=== PATIENT | male | born 1965 | race African-American/Black ===

== ENCOUNTER → 2017-07-15 | Outpatient (CLI) | payer BC, OTHER ==
[~2017-07-15] MED LIST: AMLO-307 PO; CYCL10TA9 PO; IBP800T PO; LISI10TA2 PO; MELO15TA14 PO; MINO100C2 PO; MTF500T PO; ONDA8TAB13 PO; PRD20T PO; TRAM-42 PO
--- NOTE | 2017-07-15 19:49 | Diagnostic Imaging Report ---
INDICATION: Lateral foot pain. FINDINGS: A multiseptated complex cystic lesion without vascularity measured 1.8 x 1.4 x 1.6 cm in the region of clinical complaint. No solid mass. IMPRESSION: Multiseptated complex fluid collection without internal or peripheral hypervascularity. No vascularized or solid mass. Dictated by: Dictated on workstation # [id number]
== END ==
LOC: RAD 16:55
PROVIDERS: ATTEND Nurse Practitioner Community Health
DX: M79.89 Other specified soft tissue disorders (principal)
CPT/HCPCS: 76881

== ENCOUNTER 2017-11-04 11:00 | Outpatient (CLI) | payer OTHER ==
[~2017-11-04] VITALS: Ht 175.3 cm; Wt 72.6 kg
[2017-11-04] MEDS ORDERED: METF500T4 PO (11:10)
[2017-11-04] MEDS ORDERED: AMLO10TA2 PO (11:10)
[2017-11-04] MEDS ORDERED: LISI40TA PO (11:10)
== END 2017-11-04 11:14 ==
LOC: PREOP 11:00
PROVIDERS: ATTEND Podiatrist Foot & Ankle Surgery
DX: Z01.818 Encounter for other preprocedural examination (principal); R22.42 Localized swelling, mass and lump, left lower limb

== ENCOUNTER 2018-01-27 10:30 | Outpatient (RCR) | payer OTHER ==
[~2018-01-27 10:30] MED LIST changes: +ACHD5005 PO; +AMLO10TA2 PO; +LISI40TA PO; +METF500T5 PO
== END 2018-02-02 13:23 | disposition home or self-care (01) ==
PROVIDERS: ATTEND Nurse Practitioner
DX: M16.11 Unilateral primary osteoarthritis, right hip (principal)

== ENCOUNTER → 2018-02-09 | Outpatient (CLI) | payer OTHER ==
--- NOTE | 2018-02-09 09:14 | Diagnostic Imaging Report ---
PROCEDURE: CT pelvis without contrast. TECHNIQUE: Multiple contiguous axial images were obtained through the pelvis without the use of intravenous contrast. Sagittal and coronal reformations were performed. INDICATION: Followup pelvic avulsion. COMPARISON: CT abdomen and pelvis from 07/14/2017. FINDINGS: Curvilinear mineralization within the origin of the right rectus femoris is compatible with old avulsion type injury. The configuration of the osseous fragments in this region has not significantly changed since prior CT. However, the fluid and gas within the proximal aspect of the rectus femoris muscle has resolved. On the contralateral, left side, there is minimal mineralization at the origin of the left rectus femoris muscle which is also unchanged. The bilateral distal iliopsoas tendons are intact. The proximal hamstring complexes are normal. The gluteus medius and minimus insertions show no full-thickness tear by CT. There is a large right hip effusion which is new since prior exam. Severe osteoarthritis of the right hip has progressed, now with near-complete joint space loss of the superior aspect of the hips. Marginal osteophytes are present. Ossific fragments adjacent to the right acetabulum may represent os acetabula which are congenital variant ossicles. No free pelvic fluid. No pelvic or inguinal lymphadenopathy. No fracture or stress fracture within the pelvis. 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 IMPRESSION: 1. 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 There has been resolution of the gas and fluid within the proximal right rectus femoris. 2. Development of large right hip effusion. This could be reactive in nature due to severe right hip osteoarthritis. Arthrocentesis could be performed for further characterization, if deemed clinically warranted. Dictated by: Dictated on workstation # [id number]
== END ==
LOC: RAD 08:08
PROVIDERS: ATTEND Orthopaedic Surgery
DX: S76.191A Other specified injury of right quadriceps muscle, fascia and tendon, initial encounter (principal); M16.11 Unilateral primary osteoarthritis, right hip
CPT/HCPCS: 72192

== ENCOUNTER 2018-06-01 15:17 | Outpatient (CLI) | payer OTHER ==
[~2018-06-01] VITALS: Ht 175.3 cm; Wt 72.6 kg
[~2018-06-01 15:17] MED LIST changes: -AMLO10TA2 PO; +AMLO10TA6 PO; +METF-397 PO; -METF500T5 PO
== END 2018-06-01 16:40 | disposition home or self-care (01) ==
LOC: PREOP 15:17
PROVIDERS: ATTEND Surgery
DX: Z01.818 Encounter for other preprocedural examination (principal)

== ENCOUNTER 2018-06-06 09:30 | Day surgery (SDC) | payer OTHER ==
[~2018-06-06] VITALS: Ht 175.3 cm; Wt 72.6 kg
[2018-06-06] MEDS ORDERED: NS IV 500 ML 500 ML ONE (09:32)
[2018-06-06 09:33] VITALS: BP 114/82
--- OUTSIDE RECORDS SUMMARY | 2018-06-06 09:34 | XMS REPORT ---
Author Author PAULINA MOE Organization [facility] Address [address] [place] [address] Care Team Providers Care Materials Mgmt Tech Name Role Phone PAULINA MOE Unavailable PROBLEMS Type Condition ICD9-CM Code RVN22-FF Code Onset Dates Condition Status SNOMED Code Problem Impotence N52.9 Active 589550230 Problem Sciatica, right side M54.31 Active 02773496 Problem Tobacco abuse counseling Z71.6 Active 101771203 Problem Prediabetes R73.09 Active 2650128 Problem Hyperlipidemia, unspecified E78.5 Active 47175222 Problem Primary osteoarthritis of right hip M16.11 Active 856459816 Problem Tobacco abuse Z72.0 Active 97264486 Problem Establishing care with new doctor, encounter for Z71.89 Active 154048480 Problem Other chronic pain G89.29 Active 22316061 Problem Hypertension I10 Active 52956823 ALLERGIES No Known Allergies ENCOUNTERS Encounter Location Date Diagnosis [place] [id number] [place] [address]- [address]159 May, [place] [address] [address] Apr, Positive colorectal cancer screening using Cologuard test R19.5 [place] [id number] [place] [address] 76028- 4286 Apr, [place] [address] [address]- [address] Feb, [place] [address] 86352- 7427 Feb, Hyperlipidemia, unspecified E78.5 [place] [address] 11743- 8644 Feb, Prediabetes R73.09 ; Hypertension I10 ; Colon cancer screening Z12.11 ; Hyperlipidemia, unspecified E78.5 ; Pain in right hip M25.551 and Viral warts, unspecified type B07.9 [place] [id number] [place] [address] 13582- 5502 Dec, Primary osteoarthritis of right hip M16.11 [place] [address] 13396- 1820 Nov, Primary osteoarthritis of right hip M16.11 [place] [address] 49057- 3384 Nov, Right leg pain M79.604 and Hypertension I10 [place] [address] 69[address]- 2380 Oct, [place] [address] 48024- 3097 Sep, Prediabetes R73.09 ; Pre-op exam Z01.818 and Hypertension I10 [place] [address] 90995- 4865 14 Jul, 2017 Other chronic pain G89.29 and Pain in right hip M25.551 [place] [id number] [place] [address] 45470- 1862 07 Jul, 2017 Elevated lipase R74.8 [place] [id number] [place] [address] 98161- 5937 Jul, [place] [address] 84681- 0483 Jun, RUQ abdominal pain R10.11 [place] [address] 76383- 3054 Jun, RUQ abdominal pain R10.11 and Hematuria, unspecified type R31.9 [place] [address] 83489- 4893 Jun, Right hip pain M25.551 [place] [id number] [place] [address] 97939- 3150 Jun, Prediabetes R73.03 ; Left foot pain M79.672 and Right hip pain M25.551 [facility] [id number] [place] [address] 19090 -9863 Nov, Acute non-recurrent maxillary sinusitis J01.00 [place] [id number] [place] [address] 90648- 2477 Nov, Hypertension I10 ; Prediabetes R73.09 and Dyslipidemia 272.4 [place] [address] 09880- 8474 Nov, Hypertension I10 ; Prediabetes R73.03 and Colon cancer screening Z12.11 [place] [address] 75291- 0001 Oct, Hypertension I10 [place] [id number] [place] [address] 89553- 9927 Oct, [place] [id number] [place] [address] 15581- 3633 May, Strain of triceps tendon, right, initial encounter S46.811A and Osteoarthritis of right knee, unspecified osteoarthritis type M17.9 [place] [id number] [place] [address] 04072- 3753 Apr, Elbow pain, right M25.521 and Acute pain of right knee M25.561 [place] [id number] [place] [address] 53484- 2578 Apr, [facility] [id number] [place] [address] 33954 -5298 Mar, Right elbow pain M25.521 [place] [id number] [place] [address] 26062- 2054 Mar, Hypertension I10 and Prediabetes R73.09 [place] [id number] [place] [address] 91360- 7419 Nov, [place] [id number] [place] [address] 45318- 3303 Oct, Sciatica, right side M54.31 ; Establishing care with new doctor, encounter for Z71.89 ; Tobacco abuse Z72.0 ; Tobacco abuse counseling Z71.6 and Essential hypertension I10 [facility] [id number] [place] [address] 21805 -9704 Oct, Lumbago M54.5 [place] [id number] [place] [address] 94960- 6962 Aug, Prediabetes R73.09 ; Hypertension I10 and Impotence N52.9 [place] [id number] [place] [address] 35370- 5765 May, Ingrowing nail, right great toe 703.0 [place] [id number] [place] [address] 89510- 7926 Mar, Dyslipidemia 272.4 [place] [id number] [place] [address] 86388- 4055 Mar, Prediabetes 790.29 [place] [id number] [place] [address] 33419- 9258 Feb, Prediabetes 790.29 and Impotence of organic origin 607.84 [place] [address] [place] [address] 40388- 0510 Feb, [place] [address] 20863- 1386 Feb, [place] [id number] [place] [address] 90730- 9034 Dec, Hypertension 401.9 ; Impotence due to erectile dysfunction 607.84 and Hyperglycemia 790.29 [place] [address] [id number] [place] [address]- 0206 28 Dec, 2014 [facility] [place] [facility] [address] [id number] [place] [address]- 2535 14 Dec, 2014 [facility] [place] [facility] [address] [id number] [place] [address]- 4465 Dec, [facility] [place] [facility] [address] [id number] [place] [address]- 8956 Nov, [facility] [place] [facility] [address] [id number] [place] [address]- 7010 Nov, [facility] [place] [facility] [address] [id number] [place] [address]- 6338 Oct, [facility] [place] [facility] [address] [facility] [id number] [place] [address]- 7886 Oct, [facility] [place] [facility] [address] [id number] [place] [address]- 8338 Oct, [facility] [place] [facility] [address] [id number] [place] [address]- 6567 Oct, [facility] [place] [facility] [address] [facility] [id number] [place] [address]- 9541 Sep, [facility] [place] [facility] [address] [facility] [id number] [place] [address]- 5967 Sep, [facility] [place] [facility] [address] [id number] [address]- 7105 Sep, [facility] [place] [facility] [address] [id number] [place] [address]- 0539 Sep, [facility] [place] [facility] [address] [id number] [place] [address]- 5752 Sep, [facility] [place] [facility] [address] [facility] [id number] [place] [address]- 2225 Sep, [facility] [place] [facility] [address] [id number] [place] [address]- 3851 Jul, [facility] [place] [facility] [address] [id number] [place] [address]- 7363 Jul, [facility] [place] [facility] [address] [id number] [place] [address]- 6756 Jul, [facility] [place] [facility] [address] [id number] [place] [address]- 1698 Jul, [facility] [place] [facility] [address] [id number] [place] [address]209 Jul, [facility] [place] [facility] [address] [id number] [place] [address]- 5773 Jul, [facility] [place] [facility] [address] [id number] [place] [address]379 Jun, [facility] [place] [facility] [address] [id number] [place] [address]- 3285 Mar, [facility] [place] [facility] [address] [id number] [place] [address]- 5897 Mar, [facility] [place] [facility] [address] [id number] [place] [address]- 2449 Mar, [facility] [place] [facility] [address] [id number] [place] [address]- 9507 Mar, [facility] [place] [facility] [address] [id number] [place] [address]- 4271 Feb, [facility] [place] [facility] [address] [id number] [place] [address]- 4390 Feb, [facility] [place] [facility] [address] [id number] [place] [address]- 5300 Nov, [facility] [place] [facility] [address] [id number] [place] [address]- 0455 Nov, [facility] [place] [facility] [address] [id number] [place] [address]- 0336 May, [facility] [place] [facility] [address] [id number] [place] [address]- 2546 Apr, [facility] [address] [id number] [place] [address]- 0566 January, [facility] [place] [facility] [address] [id number] [place] [address]- 2546 Oct, [facility] [address] [id number] [place] [address]- 2546 Sep, [facility] [address] [id number] [place] [address]- 2546 Sep, [facility] [address] [id number] [place] [address]- 7886 Sep, [facility] [address] [id number] [place] [address]- 7996 Jul, [facility] [address] [id number] [place] [address]- 7406 Jul, [facility] [address] [id number] [place] [address]- 2599 Mar, [facility] [address] [id number] [place] [address]- 6286 Sep, [facility] [address] [id number] [place] [address]- 4218 Sep, [facility] [address] [id number] [place] [address]- 9906 Sep, [facility] [address] [id number] [place] [address]- 2546 Sep, [facility] [address] [id number] [place] [address]- 2546 Aug, [facility] [place] [facility] [address] [id number] [place] [address]- 2546 Aug, [facility] [address] [id number] [place] [address]- 7958 16 Aug, 2010 [facility] [address] [id number] [address]- 7419 15 Aug, 2010 [facility] [address] [place] [address]- 9637 Aug, [facility] [address] 9616 Aug, [facility] [address] [address]- 4202 Sep, [facility] [address] [address]- 8315 Aug, [facility] [id number] [place] [address] 192121- 3111 Jul, [facility] [address] [address]- 0889 Jun, [facility] [address] [place] [address]- 1891 Jun, [facility] [address] [id number] [address]- 3734 May, IMMUNIZATIONS No Known Immunizations SOCIAL HISTORY Never Assessed REASON FOR VISIT Blood Pressure-Gaye NASH PLAN OF CARE Activity Details Follow Up 6 Months Reason:BP Future/Pending Procedure SHAVE SKIN LESION 0.6-1 cm VITAL SIGNS Height 70 in 2018-03-02 Weight 158.0 lbs 2018-03-02 Temperature 98.4 degrees Fahrenheit 2018-03-02 Heart Rate 64 bpm 2018-03-02 Respiratory Rate 18 2018-03-02 BMI 22.67 kg/m2 2018-03-02 Blood pressure systolic 122 mmHg 2018-03-02 Blood pressure diastolic 80 mmHg 2018-03-02 MEDICATIONS Medication Instructions Dosage Frequency Start Date End Date Duration Status Amlodipine Besylate 10 mg Orally Once a day 1 tablet 24h Active Lisinopril 40 mg Orally 1 TAB orally once a day 1 tablet by Oral route 1 time per day Sep, 90 days Active Metformin HCl 500 mg TAKE ONE TABLET BY MOUTH TWICE DAILY 12h 90 days Active RESULTS Name Result Date Reference Range A1C (IN HOUSE) 2018-03-02 A1C IN HOUSE 6.3 4.3 - 5.6 % Previous A1c 6.5 Lot [id number] Exp date 11/2019 WALTER (OUTSIDE ORDER) 2018-03-24 Date Performed Results PROCEDURES Procedure Date Ordered Result Body Site GLYCATED HEMOGLOBIN TEST March 02, 2018 KENDRA Dee,E,E,N,L,M 0.6-1 CM March 02, 2018 INSTRUCTIONS MEDICATIONS ADMINISTERED No Known Medications MEDICAL (GENERAL) HISTORY Type Description Date Medical History hypertension dx: 2009 Medical History hyperlipidemia Medical History prediabetes
--- OUTSIDE RECORDS SUMMARY | 2018-06-06 09:34 | XMS REPORT ---
Author Author PAULINA MOE Organization [facility] Address [address] [place] [address] Care Team Providers Care Automobile Tester Name Role Phone PAULINA MOE Unavailable PROBLEMS Type Condition ICD9-CM Code UMJ49-NN Code Onset Dates Condition Status SNOMED Code Problem Impotence N52.9 Active 330219189 Problem Sciatica, right side M54.31 Active 02118206 Problem Tobacco abuse counseling Z71.6 Active 931552909 Problem Prediabetes R73.09 Active 7120331 Problem Hyperlipidemia, unspecified E78.5 Active 12024543 Problem Primary osteoarthritis of right hip M16.11 Active 498124200 Problem Tobacco abuse Z72.0 Active 80726708 Problem Establishing care with new doctor, encounter for Z71.89 Active 377483395 Problem Other chronic pain G89.29 Active 65643111 Problem Hypertension I10 Active 27071795 ALLERGIES No Information ENCOUNTERS Encounter Location Date Diagnosis [place] [id number] [place] [address] 26352- 0543 May, [place] [id number] [place] [address] 78237- 8299 Apr, Positive colorectal cancer screening using Cologuard test R19.5 [place] [id number] [place] [address] 72104- 1396 Apr, [place] [id number] [place] [address] 47864- 2955 Feb, [place] [address] 90419- 8614 Feb, Hyperlipidemia, unspecified E78.5 [place] [id number] [place] [address] 53570- 6396 Feb, Prediabetes R73.09 ; Hypertension I10 ; Colon cancer screening Z12.11 ; Hyperlipidemia, unspecified E78.5 ; Pain in right hip M25.551 and Viral warts, unspecified type B07.9 [place] [id number] [place] [address] 14223- 9269 Dec, Primary osteoarthritis of right hip M16.11 [place] [address] 93816- 2029 Nov, Primary osteoarthritis of right hip M16.11 [place] [address] 67835- 4267 Nov, Right leg pain M79.604 and Hypertension I10 [place] [address] 47039- 9548 Oct, [place] [address] 09338- 8750 Sep, Prediabetes R73.09 ; Pre-op exam Z01.818 and Hypertension I10 [place] [address] 06650- 4217 14 Jul, 2017 Other chronic pain G89.29 and Pain in right hip M25.551 [place] [address] 87141- 5653 07 Jul, 2017 Elevated lipase R74.8 [place] [address] 48193- 2036 Jul, [place] [address] 21295- 9446 Jun, RUQ abdominal pain R10.11 [place] [address] 68119- 7031 Jun, RUQ abdominal pain R10.11 and Hematuria, unspecified type R31.9 [place] [address] 61943- 0363 Jun, Right hip pain M25.551 [place] [id number] [place] [address] 77599- 3238 Jun, Prediabetes R73.03 ; Left foot pain M79.672 and Right hip pain M25.551 [facility] [address] [id number] [place] [address] 91374 -0569 Nov, Acute non-recurrent maxillary sinusitis J01.00 [place] [address] 74406- 8745 Nov, Hypertension I10 ; Prediabetes R73.09 and Dyslipidemia 272.4 [place] [address] 51065- 8173 Nov, Hypertension I10 ; Prediabetes R73.03 and Colon cancer screening Z12.11 [place] [address] 67932- 7240 Oct, Hypertension I10 [place] [address] 98289- 5980 Oct, [place] [address] 64430- 4425 May, Strain of triceps tendon, right, initial encounter S46.811A and Osteoarthritis of right knee, unspecified osteoarthritis type M17.9 [place] [id number] [place] [address] 87688- 0321 Apr, Elbow pain, right M25.521 and Acute pain of right knee M25.561 [place] [id number] [place] [address] 60981- 7866 Apr, [facility] [id number] [place] [address] 67958 -2425 Mar, Right elbow pain M25.521 [place] [id number] [place] [address] 67112- 4993 Mar, Hypertension I10 and Prediabetes R73.09 [facility] [id number] [place] [address] 03060- 4823 Nov, [facility] [id number] [place] [address] 54821- 7829 Oct, Sciatica, right side M54.31 ; Establishing care with new doctor, encounter for Z71.89 ; Tobacco abuse Z72.0 ; Tobacco abuse counseling Z71.6 and Essential hypertension I10 [facility] [id number] [place] [address] 80205 -2916 Oct, Lumbago M54.5 [place] [id number] [place] [address] 64136- 9813 Aug, Prediabetes R73.09 ; Hypertension I10 and Impotence N52.9 [place] [id number] [place] [address] 73228- 3379 May, Ingrowing nail, right great toe 703.0 [place] [id number] [place] [address] 17764- 6945 Mar, Dyslipidemia 272.4 [place] [id number] [place] [address] 20398- 5464 14 Mar, 2015 Prediabetes 790.29 [place] [id number] [place] [address] 40859- 6357 Feb, Prediabetes 790.29 and Impotence of organic origin 607.84 [place] [id number] [place] [address] 32023- 9284 Feb, [place] [address] 53982- 5522 Feb, [place] [id number] [place] [address] 51538- 5968 Dec, Hypertension 401.9 ; Impotence due to erectile dysfunction 607.84 and Hyperglycemia 790.29 [place] [address] [id number] [place] [address]- 0383 Dec, [facility] [place] [facility] [address] [id number] [place] [address]- 1495 14 Dec, 2014 [facility] [place] [facility] [address] [id number] [place] [address]- 3181 Dec, [facility] [place] [facility] [address] [id number] [place] [address]- 8480 Nov, [facility] [place] [facility] [address] [id number] [place] [address]- 5478 Nov, [facility] [place] [facility] [address] [id number] [place] [address]- 0175 Oct, [facility] [place] [facility] [address] [id number] [place] [address]- 1358 Oct, [facility] [place] [facility] [address] [id number] [place] [address]- 6700 Oct, [facility] [place] [facility] [address] [id number] [place] [address]- 6988 Oct, [facility] [place] [facility] [address] [id number] [place] [address]- 8306 Sep, [facility] [place] [facility] [address] [id number] [place] [address]- 0102 Sep, [facility] [place] [facility] [address] [id number] [place] [address]- 3408 Sep, [facility] [place] [facility] [address] [id number] [place] [address]- 2240 Sep, [facility] [place] [facility] [address] [id number] [place] [address]- 7971 Sep, [facility] [place] [facility] [address] [id number] [place] [address]- 4554 Sep, [facility] [place] [facility] [address] [id number] [place] [address]- 1045 Jul, [facility] [place] [facility] [address] [id number] [place] [address]- 3947 Jul, [facility] [place] [facility] [address] [id number] [place] [address]- 3689 Jul, [facility] [place] [facility] [address] [id number] [place] [address]- 5331 Jul, [facility] [place] [facility] [address] [id number] [place] [address]- 7188 Jul, [facility] [place] [facility] [address] [id number] [place] [address]- 3015 Jul, [facility] [place] [facility] [address] [id number] [place] 9337 Jun, [facility] [place] [facility] [address] [id number] [place] [address]- 6611 Mar, [facility] [place] [facility] [address] [id number] [place] [address]- 2136 Mar, [facility] [place] [facility] [address] [id number] [place] [address]- 0649 Mar, [facility] [place] [facility] [address] [id number] [place] [address]- 2890 Mar, [facility] [place] [facility] [address] [id number] [place] [address]- 9269 Feb, [facility] [place] [facility] [address] [id number] [place] [address]- 5705 Feb, [facility] [place] [facility] [address] [id number] [place] 3164 Nov, [facility] [place] [facility] [address] [id number] [place] [address]- 5326 Nov, [facility] [place] [facility] [address] [id number] [place] 8967 May, [facility] [place] [facility] [address] [id number] [place] [address]- 2546 Apr, [facility] [address] [id number] [place] [address]- 3146 January, [facility] [address] [id number] [place] [address]- 2546 Oct, [facility] [address] [id number] [place] [address]- 2546 Sep, [facility] [address] [id number] [place] [address]- 2546 Sep, [facility] [address] [id number] [place] [address]- 7126 Sep, [facility] [address] [id number] [place] [address]- 5606 Jul, [facility] [address] [id number] [place] [address]- 4986 Jul, [facility] [address] [id number] [place] [address]- 8310 Mar, [facility] [address] [id number] [place] [address]- 4806 Sep, [facility] [address] [id number] [place] [address]- 5136 Sep, [facility] [address] [id number] [place] [address]- 0056 Sep, [facility] [address] [id number] [place] [address]- 2546 Sep, [facility] [address] [id number] [place] [address]- 2546 Aug, [facility] [address] [id number] [place] [address]- 2546 Aug, [facility] [address] [id number] [place] [address]- 0565 Aug, [facility] [address] [place] [address]- 5106 Aug, [facility] [address]- 0253 Aug, [facility] [address] [place] [address]- 4224 Aug, [facility] [address] [place] [address]- 8794 Sep, [facility] [address] 5054 Aug, [facility] [address] 5882 Jul, [facility] [address] 6659 Jun, [facility] [address] [place] [address]- 3185 Jun, [facility] [id number] [address]- 1610 May, IMMUNIZATIONS No Known Immunizations SOCIAL HISTORY Never Assessed REASON FOR VISIT Lab results PLAN OF CARE VITAL SIGNS MEDICATIONS Unknown Medications RESULTS No Results PROCEDURES No Known procedures INSTRUCTIONS MEDICATIONS ADMINISTERED No Known Medications MEDICAL (GENERAL) HISTORY Type Description Date Medical History hypertension dx: 2008 Medical History hyperlipidemia Medical History prediabetes
--- OUTSIDE RECORDS SUMMARY | 2018-06-06 09:35 | XMS REPORT ---
Author Author MARCIE HARDEN [facility] Address [address] [place] [address] Care Team Providers Care Brown Sourer Name Role Phone MARCIE HARDEN Unavailable PROBLEMS Type Condition ICD9-CM Code FLG55-IO Code Onset Dates Condition Status SNOMED Code Problem Impotence N52.9 Active 108163305 Problem Sciatica, right side M54.31 Active 20810782 Problem Tobacco abuse counseling Z71.6 Active 568272572 Problem Prediabetes R73.09 Active 9615710 Problem Hyperlipidemia, unspecified E78.5 Active 60918948 Problem Primary osteoarthritis of right hip M16.11 Active 206105133 Problem Tobacco abuse Z72.0 Active 81156374 Problem Establishing care with new doctor, encounter for Z71.89 Active 646393734 Problem Other chronic pain G89.29 Active 97653813 Problem Hypertension I10 Active 32456840 ALLERGIES No Information ENCOUNTERS Encounter Location Date Diagnosis [place] [address] 06710- 1348 Feb, [place] [address] 67063- 7108 Feb, Hyperlipidemia, unspecified E78.5 [place] [address] 39923- 1696 Feb, Prediabetes R73.09 ; Hypertension I10 ; Colon cancer screening Z12.11 ; Hyperlipidemia, unspecified E78.5 ; Pain in right hip M25.551 and Viral warts, unspecified type B07.9 [place] [address] [place] [id number] [place] [address] 38261- 5834 Dec, Primary osteoarthritis of right hip M16.11 [place] [address] 60031- 6666 Nov, Primary osteoarthritis of right hip M16.11 [place] [address] 92647- 2648 Nov, Right leg pain M79.604 and Hypertension I10 [place] [address] 77254- 9833 Oct, [place] [address] 26644- 9821 Sep, Prediabetes R73.09 ; Pre-op exam Z01.818 and Hypertension I10 [place] [address] 43316- 0431 Jul, Other chronic pain G89.29 and Pain in right hip M25.551 [place] [address] 75313- 0360 Jul, Elevated lipase R74.8 [place] [address] 93550- 0482 Jul, [place] [address] 51243- 4336 Jun, RUQ abdominal pain R10.11 [place] [address] 23353- 2626 Jun, RUQ abdominal pain R10.11 and Hematuria, unspecified type R31.9 [place] [address] 97275- 9604 Jun, Right hip pain M25.551 [place] [address] 58772- 0309 Jun, Prediabetes R73.03 ; Left foot pain M79.672 and Right hip pain M25.551 [facility] [address] [id number] [place] [address] 56525 -6387 Nov, Acute non-recurrent maxillary sinusitis J01.00 [place] [address] [address] [id number] [place] [address] 41915- 6360 Nov, Hypertension I10 ; Prediabetes R73.09 and Dyslipidemia 272.4 [place] [address] [address] [id number] [place] [address] 51043- 8561 Nov, Hypertension I10 ; Prediabetes R73.03 and Colon cancer screening Z12.11 [place] [address] 52317- 9509 Oct, Hypertension I10 [place] [address] [address] [id number] [place] [address] 68062- 1038 Oct, [address] 81541- 3371 May, Strain of triceps tendon, right, initial encounter S46.811A and Osteoarthritis of right knee, unspecified osteoarthritis type M17.[address] 02993- 6049 Apr, Elbow pain, right M25.521 and Acute pain of right knee M25.561 [place] [address] 52334- 4968 Apr, [facility] [address] [place] [id number] [place] [address] 65353 -6795 Mar, Right elbow pain M25.521 [place] [address] [address] [id number] [place] [address] 51506- 4758 Mar, Hypertension I10 and Prediabetes R73.09 [place] [address] [address] [id number] [place] [address] 21065- 0355 Nov, [address] 64883- 1083 Oct, Sciatica, right side M54.31 ; Establishing care with new doctor, encounter for Z71.89 ; Tobacco abuse Z72.0 ; Tobacco abuse counseling Z71.6 and Essential hypertension I10 [facility] [address] [place] [id number] [place] [address] 30283 -9781 Oct, Lumbago M54.5 [facility] [address] [id number] [place] [address] 30551- 4637 Aug, Prediabetes R73.09 ; Hypertension I10 and Impotence N52.9 [facility] [address] 98060- 7962 May, Ingrowing nail, right great toe 703.0 [place] [address] 72325- 5053 Mar, Dyslipidemia 272.4 [place] [address] 24327- 0288 Mar, Prediabetes 790.29 [facility] [address] 27814- 0716 Feb, Prediabetes 790.29 and Impotence of organic origin 607.84 [facility] [address] 26442- 5889 Feb, [facility] [address] 52481- 6154 Feb, [facility] [address] [place] [address] [id number] [place] [address] 51446- 6844 Dec, Hypertension 401.9 ; Impotence due to erectile dysfunction 607.84 and Hyperglycemia 790.29 [facility] [address] [place] [id number] [place] [address] 30585- 0250 Dec, [facility] [address] 15100- 3145 Dec, [facility] [address] 92251- 2302 Dec, [facility] [address] 46177- 5380 Nov, [facility] [place] [facility] [address] [id number] [place] [address]- 4554 Nov, [facility] [place] [facility] [address] [id number] [place] [address]- 5400 Oct, [facility] [place] [facility] [address] [id number] [place] [address]- 7488 Oct, [facility] [place] [facility] [address] [id number] [place] [address]- 0465 Oct, [facility] [place] [facility] [address] [id number] [place] [address]- 3211 Oct, [facility] [place] [facility] [address] [id number] [place] [address]- 9693 Sep, [facility] [place] [facility] [address] [facility] [id number] [place] [address]- 8471 Sep, [facility] [place] [facility] [address] [id number] [place] [address]- 0125 Sep, [facility] [place] [facility] [address] [facility] [id number] [place] [address]- 8643 Sep, [facility] [place] [facility] [address] [facility] [id number] [place] [address]- 7297 Sep, [facility] [place] [facility] [address] [id number], [place] [address]- 9141 Sep, [facility] [place] [facility] [address] [id number], [place] [address]- 6113 Jul, [facility] [place] [facility] [address] [id number] [place] [address]- 0777 Jul, [facility] [place] [facility] [address] [facility] [id number] [place] [address]- 4472 Jul, [facility] [place] [facility] [address] [facility] [id number] [place] [address]- 5070 Jul, [facility] [place] [facility] [address] [id number] [place] [address]- 2546 Jul, [facility] [place] [facility] [address] [id number] [place] [address]- 2546 Jul, [facility] [place] [facility] [address] [id number] [place] [address]- 2546 Jun, [facility] [place] [facility] [address] [id number] [place] [address]- 2546 Mar, [facility] [place] [facility] [address] [id number] [place] [address]- 2546 Mar, [facility] [place] [facility] [address] [id number] [place] [address]- 2546 Mar, [facility] [place] [facility] [address] [id number] [place] [address]- 2546 Mar, [facility] [place] [facility] [address] [id number] [place] [address]- 9376 Feb, [facility] [place] [facility] [address] [id number] [place] [address]- 0677 Feb, [facility] [place] [facility] [address] [id number] [place] [address]- 7566 Nov, [facility] [place] [facility] [address] [id number] [place] [address]- 2546 Nov, [facility] [place] [facility] [address] [id number] [place] [address]- 2546 May, [facility] [place] [facility] [address] [id number] [place] [address]- 2546 Apr, [facility] [place] [facility] [address] [id number] [place] [address]- 2546 January, [facility] [place] [facility] [address] [id number] [place] [address]- 2546 Oct, [facility] [place] [facility] [address] [id number] [place] [address]- 1977 Sep, [facility] [address] [id number] [place] [address]- 2295 Sep, [facility] [place] [facility] [address] [id number] [place] [address]- 7983 Sep, [facility] [address] [id number] [place] [address]- 3346 Jul, [facility] [place] [facility] [address] [id number] [place] [address]- 7600 Jul, [facility] [address] [id number] [place] [address]- 8072 Mar, [facility] [address] [id number] [place] [address]- 5484 Sep, [facility] [address] [id number] [place] [address]- 5897 Sep, [facility] [address] [id number] [place] [address]- 3730 Sep, [facility] [address] [id number] [place] [address]- 2134 Sep, [facility] [address] [id number] [place] [address] 29 Aug, 2010 [facility] [place] [facility] [address] [id number], [place] [address] 20 Aug, 2010 [facility] [place] [facility] [address] [id number], [place] [address] 16 Aug, 2010 [facility] [place] [facility] [address] [id number] [place] [address] 15 Aug, 2010 [facility] [place] [facility] [address] [id number] [place] [address] 15 Aug, 2010 [facility] [place] [facility] [address] [id number] [place] [address] 02 Aug, 2010 [facility] [place] [facility] [address] [facility] [id number], [place] [address] Sep, [facility] [id number], [place] [address] Aug, [facility] [address] [id number], [place] [address] Jul, [facility] [address] [id number], [place] [address] Jun, [facility] [address] [id number] [address] Jun, [facility] [address] [id number] [address] May, IMMUNIZATIONS No Known Immunizations SOCIAL HISTORY Never Assessed REASON FOR VISIT right hip pain- CT and X-ray done 06/2017 PLAN OF CARE Activity Details Follow Up prn Reason: VITAL SIGNS MEDICATIONS Unknown Medications RESULTS No Results PROCEDURES No Known procedures INSTRUCTIONS MEDICATIONS ADMINISTERED No Known Medications MEDICAL (GENERAL) HISTORY Type Description Date Medical History hypertension dx: 2008 Medical History hyperlipidemia Medical History prediabetes
--- OUTSIDE RECORDS SUMMARY | 2018-06-06 09:35 | XMS REPORT ---
Author Author MARCIE HARDEN [facility] Address [address] [place] [address] Care Team Providers Care Research Quality Assurance Analyst Name Role Phone MARCIE HARDEN Unavailable PROBLEMS Type Condition ICD9-CM Code LRH26-BZ Code Onset Dates Condition Status SNOMED Code Problem Impotence N52.9 Active 583954747 Problem Sciatica, right side M54.31 Active 40097921 Problem Tobacco abuse counseling Z71.6 Active 249584365 Problem Prediabetes R73.09 Active 4356321 Problem Hyperlipidemia, unspecified E78.5 Active 34695033 Problem Primary osteoarthritis of right hip M16.11 Active 152178646 Problem Tobacco abuse Z72.0 Active 39311263 Problem Establishing care with new doctor, encounter for Z71.89 Active 648652660 Problem Other chronic pain G89.29 Active 43431619 Problem Hypertension I10 Active 14241858 ALLERGIES No Information ENCOUNTERS Encounter Location Date Diagnosis [place] [address] [address] 8985 Feb, [place] [address] 62598- 4039 Feb, Hyperlipidemia, unspecified E78.5 [place] [address] 87485- 9880 Feb, Prediabetes R73.09 ; Hypertension I10 ; Colon cancer screening Z12.11 ; Hyperlipidemia, unspecified E78.5 ; Pain in right hip M25.551 and Viral warts, unspecified type B07.9 [place] [address] [place] [id number] [place] [address] 49561- 6238 Dec, Primary osteoarthritis of right hip M16.11 [place] [address] 55319- 6958 Nov, Primary osteoarthritis of right hip M16.11 [place] [address] 92990- 4677 Nov, Right leg pain M79.604 and Hypertension I10 [place] [address] 76280- 9964 Oct, [place] [address] 64420- 0321 Sep, Prediabetes R73.09 ; Pre-op exam Z01.818 and Hypertension I10 [place] [address] 22718- 4231 Jul, Other chronic pain G89.29 and Pain in right hip M25.551 [place] [address] 07905- 6133 Jul, Elevated lipase R74.8 [place] [address] 30747- 9741 Jul, [place] [address] 49851- 5512 Jun, RUQ abdominal pain R10.11 [place] [address] 62976- 0961 Jun, RUQ abdominal pain R10.11 and Hematuria, unspecified type R31.9 [place] [address] 67059- 5455 Jun, Right hip pain M25.551 [place] [address] 85557- 4027 Jun, Prediabetes R73.03 ; Left foot pain M79.672 and Right hip pain M25.551 [facility] [address] [place] [id number] [place] [address] 31234 -7623 Nov, Acute non-recurrent maxillary sinusitis J01.00 [place] [address] [place] [id number] [place] [address] 55243- 5809 Nov, Hypertension I10 ; Prediabetes R73.09 and Dyslipidemia 272.4 [place] [address] [place] [id number] [place] [address] 90357- 1222 Nov, Hypertension I10 ; Prediabetes R73.03 and Colon cancer screening Z12.11 [place] [address] 87357- 0878 Oct, Hypertension I10 [place] [address] [place] [id number] [place] [address] 66643- 9540 Oct, [address] 82410- 0180 May, Strain of triceps tendon, right, initial encounter S46.811A and Osteoarthritis of right knee, unspecified osteoarthritis type M17.[address] 55258- 6428 Apr, Elbow pain, right M25.521 and Acute pain of right knee M25.561 [place] [address] 34796- 1866 Apr, [facility] [address] [place] [id number] [place] [address] 56469 -4480 Mar, Right elbow pain M25.521 [place] [address] [place] [id number] [place] [address] 88318- 3444 Mar, Hypertension I10 and Prediabetes R73.09 [place] [address] [place] [id number] [place] [address] 23788- 6357 Nov, [address] 24302- 2282 Oct, Sciatica, right side M54.31 ; Establishing care with new doctor, encounter for Z71.89 ; Tobacco abuse Z72.0 ; Tobacco abuse counseling Z71.6 and Essential hypertension I10 [facility] [address] [place] [id number] [place] [address] 46299 -3577 Oct, Lumbago M54.5 [facility] [address] [place] [id number] [place] [address] 60742- 1514 Aug, Prediabetes R73.09 ; Hypertension I10 and Impotence N52.9 [facility] [address] 52490- 6284 May, Ingrowing nail, right great toe 703.0 [place] [address] 79611- 7709 Mar, Dyslipidemia 272.4 [place] [address] 78898- 6953 Mar, Prediabetes 790.29 [facility] [address] 53679- 0288 Feb, Prediabetes 790.29 and Impotence of organic origin 607.84 [facility] [address] 35652- 4284 Feb, [facility] [address] 75856- 0265 Feb, [facility] [address] [place] [id number] [place] [address] 89742- 8644 Dec, Hypertension 401.9 ; Impotence due to erectile dysfunction 607.84 and Hyperglycemia 790.29 [facility] [address] [place] [id number] [place] [address] 86189- 2203 Dec, [facility] [address] 17033- 8062 Dec, [facility] [address] 22271- 5631 Dec, [facility] [address] 40111- 2317 Nov, [facility] [place] [facility] [address] [id number] [place] [address]- 9967 Nov, [facility] [place] [facility] [address] [id number] [place] [address]- 4864 Oct, [facility] [place] [facility] [address] [id number] [place] [address]- 0831 Oct, [facility] [place] [facility] [address] [id number] [place] [address]- 4281 Oct, [facility] [place] [facility] [address] [id number] [place] [address]- 9074 Oct, [facility] [place] [facility] [address] [id number] [place] [address]- 8066 Sep, [facility] [place] [facility] [address] [facility] [id number] [place] [address]- 2510 Sep, [facility] [place] [facility] [address] [id number] [place] [address]- 8818 Sep, [facility] [place] [facility] [address] [facility] [id number] [place] [address]- 0504 Sep, [facility] [place] [facility] [address] [facility] [id number] [place] [address]- 6139 Sep, [facility] [place] [facility] [address] [id number], [place] [address]- 9020 Sep, [facility] [place] [facility] [address] [id number], [place] [address]- 4270 Jul, [facility] [place] [facility] [address] [id number] [place] [address]- 5516 Jul, [facility] [place] [facility] [address] [facility] [id number] [place] [address]- 1648 Jul, [facility] [place] [facility] [address] [facility] [id number] [place] [address]- 3501 Jul, [facility] [place] [facility] [address] [id number] [place] [address]- 2546 Jul, [facility] [place] [facility] [address] [id number] [place] [address]- 2546 Jul, [facility] [place] [facility] [address] [id number] [place] [address]- 2546 Jun, [facility] [place] [facility] [address] [id number] [place] [address]- 2546 Mar, [facility] [place] [facility] [address] [id number] [place] [address]- 2546 Mar, [facility] [place] [facility] [address] [id number] [place] [address]- 2546 Mar, [facility] [place] [facility] [address] [id number] [place] [address]- 2546 Mar, [facility] [place] [facility] [address] [id number] [place] [address]- 5286 Feb, [facility] [place] [facility] [address] [id number] [place] [address]- 5242 Feb, [facility] [place] [facility] [address] [id number] [place] [address]- 8616 Nov, [facility] [place] [facility] [address] [id number] [place] [address]- 2546 Nov, [facility] [place] [facility] [address] [id number] [place] [address]- 2546 May, [facility] [place] [facility] [address] [id number] [place] [address]- 2546 Apr, [facility] [place] [facility] [address] [id number] [place] [address]- 2546 January, [facility] [place] [facility] [address] [id number] [place] [address]- 2546 Oct, [facility] [place] [facility] [address] [id number] [place] [address]- 9288 Sep, [facility] [address] [id number] [place] [address]- 3248 Sep, [facility] [place] [facility] [address] [id number] [place] [address]- 2418 Sep, [facility] [address] [id number] [place] [address]- 2056 Jul, [facility] [place] [facility] [address] [id number] [place] [address]- 2165 Jul, [facility] [address] [id number] [place] [address]- 4454 Mar, [facility] [address] [id number] [place] [address]- 4438 Sep, [facility] [address] [id number] [place] [address]- 1271 Sep, [facility] [address] [id number] [place] [address]- 2366 Sep, [facility] [address] [id number] [place] [address]- 2057 Sep, [facility] [address] [id number] [place] [address]- 9055 29 Aug, 2010 [facility] [place] [facility] [address] [id number], [place] [address]- 9804 20 Aug, 2010 [facility] [place] [facility] [address] [id number], [place] [address]- 4068 16 Aug, 2010 [facility] [place] [facility] [address] [id number] [place] [address]- 5749 15 Aug, 2010 [facility] [place] [facility] [address] [id number] [place] [address]- 9908 15 Aug, 2010 [facility] [place] [facility] [address] [id number] [place] [address]- 5786 02 Aug, 2010 [facility] [place] [facility] [address] [facility] [id number], [place] [address]- 4016 Sep, [facility] [address] [id number] [address]- 3653 Aug, [facility] [address] [id number] [address]- 2496 Jul, [facility] [address] [id number], [place] [address]- 0586 Jun, [facility] [address] [id number] [address]- 5693 Jun, [facility] [address] [id number] [address]- 3659 May, IMMUNIZATIONS No Known Immunizations SOCIAL HISTORY Never Assessed REASON FOR VISIT possible hip injection, Consult with Marcie Servin MA PLAN OF CARE Activity Details Follow Up prn Reason: VITAL SIGNS Height 70 in 2018-01-20 Blood pressure systolic 120 mmHg 2018-01-20 Blood pressure diastolic 80 mmHg 2018-01-20 MEDICATIONS Unknown Medications RESULTS No Results PROCEDURES No Known procedures INSTRUCTIONS MEDICATIONS ADMINISTERED No Known Medications MEDICAL (GENERAL) HISTORY Type Description Date Medical History hypertension dx: 2008 Medical History hyperlipidemia Medical History prediabetes
--- OUTSIDE RECORDS SUMMARY | 2018-06-06 09:35 | XMS REPORT ---
Author Author PAULINA MOE Organization [facility] Address [address] [place] [address] Care Team Providers Care Ceramic Maker Demonstrator Name Role Phone PAULINA MOE Unavailable PROBLEMS Type Condition ICD9-CM Code ZBE58-CZ Code Onset Dates Condition Status SNOMED Code Problem Impotence N52.9 Active 072089336 Problem Sciatica, right side M54.31 Active 36748800 Problem Tobacco abuse counseling Z71.6 Active 900660861 Problem Prediabetes R73.09 Active 0739405 Problem Hyperlipidemia, unspecified E78.5 Active 77803021 Problem Primary osteoarthritis of right hip M16.11 Active 675050058 Problem Tobacco abuse Z72.0 Active 77984894 Problem Establishing care with new doctor, encounter for Z71.89 Active 587110627 Problem Other chronic pain G89.29 Active 72747497 Problem Hypertension I10 Active 61822940 ALLERGIES No Known Allergies ENCOUNTERS Encounter Location Date Diagnosis [place] [address] 8[address]- 5178 18 Feb, 2018 [place] [address] 63129- 6563 Feb, Hyperlipidemia, unspecified E78.5 [place] [address] 26318- 9582 Feb, Prediabetes R73.09 ; Hypertension I10 ; Colon cancer screening Z12.11 ; Hyperlipidemia, unspecified E78.5 ; Pain in right hip M25.551 and Viral warts, unspecified type B07.9 [place] [address] 33788- 3349 Dec, Primary osteoarthritis of right hip M16.11 [place] [address] 55043- 9821 Nov, Primary osteoarthritis of right hip M16.11 [place] [address] [place] [id number] [place] [address] 15149- 0800 Nov, Right leg pain M79.604 and Hypertension I10 [place] [address] [place] [id number] [place] [address] 12401- 2368 Oct, [place] [address] 82501- 2606 Sep, Prediabetes R73.09 ; Pre-op exam Z01.818 and Hypertension I10 [place] [address] 351273- 8241 Jul, Other chronic pain G89.29 and Pain in right hip M25.551 [place] [address] [place] [id number] [place] [address] 60785- 0916 Jul, Elevated lipase R74.8 [place] [address] 99226- 3453 Jul, [place] [address] 83109- 7451 Jun, RUQ abdominal pain R10.11 [place] [address] [place] [id number] [place] [address] 82124- 2611 Jun, RUQ abdominal pain R10.11 and Hematuria, unspecified type R31.9 [place] [address] [place] [id number] [place] [address] 86222- 0152 Jun, Right hip pain M25.551 [place] [address] 36652- 4328 Jun, Prediabetes R73.03 ; Left foot pain M79.672 and Right hip pain M25.551 [facility] [address] [place] [id number] [place] [address] 35193 -3772 Nov, Acute non-recurrent maxillary sinusitis J01.00 [place] [address] [place] [id number] [place] [address] 46514- 3387 Nov, Hypertension I10 ; Prediabetes R73.09 and Dyslipidemia 272.4 [place] [address] [place] [id number] [place] [address] 83385- 0838 08 Nov, 2016 Hypertension I10 ; Prediabetes R73.03 and Colon cancer screening Z12.11 [place] [address] 28170- 6066 Oct, Hypertension I10 [place] [address] 68067- 6063 Oct, [place] [address] 51496- 4783 May, Strain of triceps tendon, right, initial encounter S46.811A and Osteoarthritis of right knee, unspecified osteoarthritis type M17.9 [place] [address] [place] [id number] [place] [address] 27109- 0139 Apr, Elbow pain, right M25.521 and Acute pain of right knee M25.561 [place] [address] [place] [id number] [place] [address] 39303- 0554 Apr, [facility] [address] [place] [id number] [place] [address] 73353 -5635 Mar, Right elbow pain M25.521 [place] [address] [place] [id number] [place] [address] 91200- 3666 Mar, Hypertension I10 and Prediabetes R73.09 [place] [address] 20667- 1561 Nov, [place] [address] 72116- 8468 Oct, Sciatica, right side M54.31 ; Establishing care with new doctor, encounter for Z71.89 ; Tobacco abuse Z72.0 ; Tobacco abuse counseling Z71.6 and Essential hypertension I10 [facility] [address] [place] [address] 13611 -8330 Oct, Lumbago M54.5 [facility] [address] [place] [id number] [place] [address] 51851- 7951 Aug, Prediabetes R73.09 ; Hypertension I10 and Impotence N52.9 [facility] [address] [place] [id number] [place] [address] 40918- 8923 May, Ingrowing nail, right great toe 703.0 [place] [address] [place] [id number] [place] [address] 85878- 7266 Mar, Dyslipidemia 272.4 [place] [address] 68546- 1915 Mar, Prediabetes 790.29 [place] [address] 04174- 0141 Feb, Prediabetes 790.29 and Impotence of organic origin 607.84 [place] [address] [place] [id number] [place] [address] 27490- 6522 Feb, [place] [address] [place] [id number] [place] [address] 34349- 6607 Feb, [place] [address] [place] [id number] [place] [address] 38315- 4524 Dec, Hypertension 401.9 ; Impotence due to erectile dysfunction 607.84 and Hyperglycemia 790.29 [place] [address] [place] [id number] [place] [address] 35183- 8961 Dec, [place] [address] [place] [id number] [place] [address] 66464- 8984 Dec, [place] [address] [place] [id number] [place] [address] 99211- 8405 Dec, [place] [address] [place] [id number] [place] [address] 33999- 0552 Nov, [facility] [place] [facility] [address] [id number] [place] [address]- 9877 Nov, [facility] [place] [facility] [address] [id number] [place] [address]- 0255 Oct, [facility] [place] [facility] [address] [id number] [place] [address]- 3690 Oct, [facility] [place] [facility] [address] [id number] [place] [address]- 5820 Oct, [facility] [place] [facility] [address] [id number] [place] [address]- 9074 Oct, [facility] [place] [facility] [address] [id number] [place] [address]- 1801 Sep, [facility] [place] [facility] [address] [id number] [place] [address]- 6952 Sep, [facility] [place] [facility] [address] [id number] [place] [address]- 3974 Sep, [facility] [place] [facility] [address] [id number] [place] [address]- 9882 Sep, [facility] [place] [facility] [address] [facility] [id number] [place] [address]- 6293 Sep, [facility] [place] [facility] [address] [id number] [place] [address]- 9268 Sep, [facility] [place] [facility] [address] [id number] [place] [address]- 4840 Jul, [facility] [place] [facility] [address] [id number] [place] [address]- 3671 Jul, [facility] [place] [facility] [address] [id number] [place] [address]- 2597 Jul, [facility] [place] [facility] [address] [id number] [place] [address]- 9637 Jul, [facility] [place] [facility] [address] [id number] [place] [address]- 2541 Jul, [facility] [place] [facility] [address] [id number] [place] [address]- 0436 Jul, [facility] [place] [facility] [address] [id number] [place] [address]- 2546 Jun, [facility] [place] [facility] [address] [id number] [place] [address]- 2546 Mar, [facility] [place] [facility] [address] [id number] [place] [address]- 1536 Mar, [facility] [place] [facility] [address] [id number] [place] [address]- 2546 Mar, [facility] [place] [facility] [address] [id number] [place] [address]- 1555 Mar, [facility] [place] [facility] [address] [id number] [place] [address]- 1014 Feb, [facility] [place] [facility] [address] [id number] [place] [address]- 1951 Feb, [facility] [place] [facility] [address] [id number] [place] [address]- 6821 Nov, [facility] [place] [facility] [address] [id number] [place] [address]- 4682 Nov, [facility] [place] [facility] [address] [id number] [place] [address]- 2546 May, [facility] [place] [facility] [address] [id number] [place] [address]- 2546 Apr, [facility] [place] [facility] [address] [id number] [place] [address]- 2546 January, [facility] [place] [facility] [address] [id number] [place] [address]- 2546 Oct, [facility] [place] [facility] [address] [id number] [place] [address]- 0836 Sep, [facility] [address] [id number] [place] [address]- 5822 Sep, [facility] [place] [facility] [address] [id number] [place] [address]- 3357 Sep, [facility] [address] [id number] [place] [address]- 2806 Jul, [facility] [place] [facility] [address] [id number] [place] [address]- 0444 Jul, [facility] [address] [id number] [place] [address]- 9540 Mar, [facility] [place] [facility] [address] [id number] [place] [address]- 8602 Sep, [facility] [address] [id number] [place] [address]- 8315 Sep, [facility] [address] [id number] [place] [address]- 3059 Sep, [facility] [address] [id number] [place] [address]- 5517 Sep, [facility] [address] [id number] [place] [address] Aug, [facility] [address] [id number] [place] [address] Aug, [facility] [place] [facility] [address] [id number] [place] [address] 16 Aug, 2010 [facility] [place] [facility] [address] [id number] [place] [address] 15 Aug, 2010 [facility] [place] [facility] [address] [id number] [place] [address] 15 Aug, 2010 [facility] [place] [facility] [address] [id number] [place] [address] Aug, [facility] [place] [facility] [address] [facility] [id number] [place] [address] Sep, [facility] [address] [facility] [id number] [place] [address] Aug, [facility] [address] [id number] [place] [address] Jul, [facility] [address] [facility] [id number] [place] [address] Jun, [facility] [address] [facility] [id number] [place] [address] Jun, [facility] [address] [facility] [id number] [place] [address] May, IMMUNIZATIONS No Known Immunizations SOCIAL HISTORY Never Assessed REASON FOR VISIT Pain (acute) hip reports has been ongoing for at least a year. Reports not taking anything for it, has hydrocodone on med list. CBrumbackRN PLAN OF CARE Activity Details Follow Up 6 Months Reason:BP and fasting labs VITAL SIGNS Height 70 in 2017-11-29 Weight 156.7 lbs 2017-11-29 Temperature 97.9 degrees Fahrenheit 2017-11-29 Heart Rate 86 bpm 2017-11-29 Respiratory Rate 18 2017-11-29 BMI 22.48 kg/m2 2017-11-29 Blood pressure systolic 120 mmHg 2017-11-29 Blood pressure diastolic 84 mmHg 2017-11-29 MEDICATIONS Medication Instructions Dosage Frequency Start Date End Date Duration Status Metformin HCl 500 mg TAKE ONE TABLET BY MOUTH TWICE DAILY 12h 90 days Active Amlodipine Besylate 10 mg Orally Once a day 1 tablet 24h Active Lisinopril 40 mg Orally 1 TAB orally once a day 1 tablet by Oral route 1 time per day Sep, 90 days Active RESULTS No Results PROCEDURES No Known procedures INSTRUCTIONS MEDICATIONS ADMINISTERED No Known Medications MEDICAL (GENERAL) HISTORY Type Description Date Medical History hypertension dx: 2008 Medical History hyperlipidemia Medical History prediabetes
--- OUTSIDE RECORDS SUMMARY | 2018-06-06 09:35 | XMS REPORT ---
Author Author PAULINA MOE Organization [facility] Address [address] [place] [address] Care Team Providers Care Beehive Kiln Supervisor Name Role Phone PAULINA MOE Unavailable PROBLEMS Type Condition ICD9-CM Code XDL93-NV Code Onset Dates Condition Status SNOMED Code Problem Impotence N52.9 Active 482352603 Problem Sciatica, right side M54.31 Active 34094782 Problem Tobacco abuse counseling Z71.6 Active 981675855 Problem Prediabetes R73.09 Active 0858812 Problem Hyperlipidemia, unspecified E78.5 Active 28903827 Problem Primary osteoarthritis of right hip M16.11 Active 999690294 Problem Tobacco abuse Z72.0 Active 83102619 Problem Establishing care with new doctor, encounter for Z71.89 Active 057707937 Problem Other chronic pain G89.29 Active 17201549 Problem Hypertension I10 Active 70669978 ALLERGIES No Information ENCOUNTERS Encounter Location Date Diagnosis [place] [id number] [place] [address] 21329- 4116 May, [place] [id number] [place] [address] 44729- 6874 Apr, Positive colorectal cancer screening using Cologuard test R19.5 [place] [id number] [place] [address] 89151- 8868 Apr, [place] [id number] [place] [address] 61866- 7389 Feb, [place] [address] 51693- 8206 Feb, Hyperlipidemia, unspecified E78.5 [place] [id number] [place] [address] 67758- 7983 Feb, Prediabetes R73.09 ; Hypertension I10 ; Colon cancer screening Z12.11 ; Hyperlipidemia, unspecified E78.5 ; Pain in right hip M25.551 and Viral warts, unspecified type B07.9 [place] [id number] [place] [address] 61875- 0914 Dec, Primary osteoarthritis of right hip M16.11 [place] [address] 99891- 6242 Nov, Primary osteoarthritis of right hip M16.11 [place] [address] 79023- 0737 Nov, Right leg pain M79.604 and Hypertension I10 [place] [address] 48184- 0670 Oct, [place] [address] 49667- 8980 Sep, Prediabetes R73.09 ; Pre-op exam Z01.818 and Hypertension I10 [place] [address] 24457- 8742 14 Jul, 2017 Other chronic pain G89.29 and Pain in right hip M25.551 [place] [address] 19229- 2595 07 Jul, 2017 Elevated lipase R74.8 [place] [address] 42080- 2815 Jul, [place] [address] 06648- 8853 Jun, RUQ abdominal pain R10.11 [place] [address] 66355- 9550 Jun, RUQ abdominal pain R10.11 and Hematuria, unspecified type R31.9 [place] [address] 38054- 5874 Jun, Right hip pain M25.551 [place] [id number] [place] [address] 48062- 0524 Jun, Prediabetes R73.03 ; Left foot pain M79.672 and Right hip pain M25.551 [facility] [address] [id number] [place] [address] 39221 -9804 Nov, Acute non-recurrent maxillary sinusitis J01.00 [place] [address] 07504- 1712 Nov, Hypertension I10 ; Prediabetes R73.09 and Dyslipidemia 272.4 [place] [address] 01551- 9529 Nov, Hypertension I10 ; Prediabetes R73.03 and Colon cancer screening Z12.11 [place] [address] 28636- 5215 Oct, Hypertension I10 [place] [address] 59448- 2251 Oct, [place] [address] 65106- 0015 May, Strain of triceps tendon, right, initial encounter S46.811A and Osteoarthritis of right knee, unspecified osteoarthritis type M17.9 [place] [id number] [place] [address] 50558- 8892 Apr, Elbow pain, right M25.521 and Acute pain of right knee M25.561 [place] [id number] [place] [address] 78564- 7837 Apr, [facility] [id number] [place] [address] 01472 -9110 Mar, Right elbow pain M25.521 [place] [id number] [place] [address] 18746- 9927 Mar, Hypertension I10 and Prediabetes R73.09 [facility] [address] [place] [address] 71239- 7526 Nov, [facility] [id number] [place] [address] 48362- 8113 Oct, Sciatica, right side M54.31 ; Establishing care with new doctor, encounter for Z71.89 ; Tobacco abuse Z72.0 ; Tobacco abuse counseling Z71.6 and Essential hypertension I10 [facility] [address] [place] [address] 56048 -4962 Oct, Lumbago M54.5 [place] [id number] [place] [address] 50484- 3601 Aug, Prediabetes R73.09 ; Hypertension I10 and Impotence N52.9 [place] [id number] [place] [address] 99481- 3733 May, Ingrowing nail, right great toe 703.0 [place] [id number] [place] [address] 76355- 3684 Mar, Dyslipidemia 272.4 [place] [id number] [place] [address] 88785- 9872 14 Mar, 2015 Prediabetes 790.29 [place] [id number] [place] [address] 93731- 5039 Feb, Prediabetes 790.29 and Impotence of organic origin 607.84 [place] [address] [place] [address] 78530- 1842 Feb, [place] [address] 99143- 0379 Feb, [place] [id number] [place] [address] 00553- 5665 Dec, Hypertension 401.9 ; Impotence due to erectile dysfunction 607.84 and Hyperglycemia 790.29 [place] [address] [id number] [place] [address]- 7348 Dec, [facility] [place] [facility] [address] [id number] [place] [address]- 9616 14 Dec, 2014 [facility] [place] [facility] [address] [id number] [place] [address]- 9212 Dec, [facility] [place] [facility] [address] [id number] [place] [address]- 5298 Nov, [facility] [place] [facility] [address] [id number] [place] [address]- 3277 Nov, [facility] [place] [facility] [address] [id number] [place] [address]- 6468 Oct, [facility] [place] [facility] [address] [id number] [place] [address]- 7111 Oct, [facility] [place] [facility] [address] [id number] [place] [address]- 1134 Oct, [facility] [place] [facility] [address] [id number] [place] [address]- 0123 Oct, [facility] [place] [facility] [address] [id number] [place] [address]- 0058 Sep, [facility] [place] [facility] [address] [id number] [place] [address]- 6871 Sep, [facility] [place] [facility] [address] [id number] [place] [address]- 2731 Sep, [facility] [place] [facility] [address] [id number] [place] [address]- 2194 Sep, [facility] [place] [facility] [address] [id number] [place] [address]- 3037 Sep, [facility] [place] [facility] [address] [id number] [place] [address]- 3526 Sep, [facility] [place] [facility] [address] [id number] [place] [address]- 0317 Jul, [facility] [place] [facility] [address] [id number] [place] [address]- 9735 Jul, [facility] [place] [facility] [address] [id number] [place] [address]- 2785 Jul, [facility] [place] [facility] [address] [id number] [place] [address]- 6040 Jul, [facility] [place] [facility] [address] [id number] [place] [address]- 2394 Jul, [facility] [place] [facility] [address] [id number] [place] [address]- 4330 Jul, [facility] [place] [facility] [address] [id number] [place] 5318 Jun, [facility] [place] [facility] [address] [id number] [place] [address]- 9591 Mar, [facility] [place] [facility] [address] [id number] [place] [address]- 5548 Mar, [facility] [place] [facility] [address] [id number] [place] [address]- 8656 Mar, [facility] [place] [facility] [address] [id number] [place] [address]- 5349 Mar, [facility] [place] [facility] [address] [id number] [place] [address]- 4549 Feb, [facility] [place] [facility] [address] [id number] [place] [address]- 8461 Feb, [facility] [place] [facility] [address] [id number] [place] 5697 Nov, [facility] [place] [facility] [address] [id number] [place] [address]- 8287 Nov, [facility] [place] [facility] [address] [id number] [place] 2643 May, [facility] [place] [facility] [address] [id number] [place] [address]- 2546 Apr, [facility] [address] [id number] [place] [address]- 3036 January, [facility] [address] [id number] [place] [address]- 2546 Oct, [facility] [address] [id number] [place] [address]- 2546 Sep, [facility] [address] [id number] [place] [address]- 2546 Sep, [facility] [address] [id number] [place] [address]- 5606 Sep, [facility] [address] [id number] [place] [address]- 4326 Jul, [facility] [address] [id number] [place] [address]- 2866 Jul, [facility] [address] [id number] [place] [address]- 2980 Mar, [facility] [address] [id number] [place] [address]- 8406 Sep, [facility] [address] [id number] [place] [address]- 5443 Sep, [facility] [address] [id number] [place] [address]- 3166 Sep, [facility] [address] [id number] [place] [address]- 2546 Sep, [facility] [address] [id number] [place] [address]- 2546 Aug, [facility] [address] [id number] [place] [address]- 2546 Aug, [facility] [address] [id number] [place] [address]- 5406 Aug, [facility] [address] [facility] [id number] [address]- 6055 Aug, [facility] [address] [facility] [id number], [place] [address]- 2467 Aug, [facility] [address] [address] [id number] [address]- 7165 Aug, [facility] [address] [facility] [id number], [place] [address]- 9387 Sep, [facility] [address] [facility] [id number], [place] [address]- 4852 Aug, [facility] [address] [address]- 0444 Jul, [facility] [address] [address]- 6868 Jun, [facility] [address] [address]- 4623 Jun, [facility] [address] [id number] [address]- 3604 May, IMMUNIZATIONS No Known Immunizations SOCIAL HISTORY Never Assessed REASON FOR VISIT Lab (walk-in) PLAN OF CARE VITAL SIGNS MEDICATIONS Unknown Medications RESULTS No Results PROCEDURES Procedure Date Ordered Result Body Site LIPID PANEL March 08, 2018 COMPREHEN METABOLIC PANEL March 08, 2018 VENRON, ROUTINE* March 08, 2018 INSTRUCTIONS MEDICATIONS ADMINISTERED No Known Medications MEDICAL (GENERAL) HISTORY Type Description Date Medical History hypertension dx: 2009 Medical History hyperlipidemia Medical History prediabetes
--- OUTSIDE RECORDS SUMMARY | 2018-06-06 09:36 | XMS REPORT ---
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 Name Role Phone PAULINA MOE Unavailable PROBLEMS Type Condition ICD9-CM Code YCM39-NM Code Onset Dates Condition Status SNOMED Code Problem Prediabetes R73.09 Active 5696588 Problem Establishing care with new doctor, encounter for Z71.89 Active 826293835 Problem Impotence N52.9 Active 822191755 Problem Primary osteoarthritis of right hip M16.11 Active 234245763 Problem Other chronic pain G89.29 Active 21121240 Problem Tobacco abuse counseling Z71.6 Active 031880108 Problem Tobacco abuse Z72.0 Active 19374489 Problem Hypertension I10 Active 58742945 Problem Sciatica, right side M54.31 Active 38430335 ALLERGIES No Information ENCOUNTERS Encounter Location Date Diagnosis [place] [address] 78737- 7515 Feb, [facility] [id number] [place] [address] 53342- 8351 Dec, Primary osteoarthritis of right hip M16.11 [facility] [id number] [place] [address] 35805- 4752 Nov, Primary osteoarthritis of right hip M16.11 [facility] [id number] [place] [address] 09915- 2910 Nov, Right leg pain M79.604 and Hypertension I10 [facility] [id number] [place] [address] 95544- 4493 Oct, [facility] [address] 16284- 8885 Sep, Prediabetes R73.09 ; Pre-op exam Z01.818 and Hypertension I10 [place] [address] 56574- 1008 14 Jul, 2017 Other chronic pain G89.29 and Pain in right hip M25.551 [place] [address] 04314- 1444 07 Jul, 2017 Elevated lipase R74.8 [place] [address] 83577- 2563 03 Jul, 2017 [place] [address] 01966- 8946 Jun, RUQ abdominal pain R10.11 [place] [address] 72575- 5479 Jun, RUQ abdominal pain R10.11 and Hematuria, unspecified type R31.9 [place] [address] 57664- 5973 Jun, Right hip pain M25.551 [place] [address] 04129- 7395 16 Jun, 2017 Prediabetes R73.03 ; Left foot pain M79.672 and Right hip pain M25.551 [facility] [id number] [place] [address] 80679 -8983 Nov, Acute non-recurrent maxillary sinusitis J01.00 [place] [id number] [place] [address] 17585- 7160 Nov, Hypertension I10 ; Prediabetes R73.09 and Dyslipidemia 272.[address] 07372- 7612 08 Nov, 2016 Hypertension I10 ; Prediabetes R73.03 and Colon cancer screening Z12.11 [place] [address] 02249- 6588 Oct, Hypertension I10 [place] [id number] [place] [address] 88643- 3353 Oct, [place] [address] 56835- 7951 May, Strain of triceps tendon, right, initial encounter S46.811A and Osteoarthritis of right knee, unspecified osteoarthritis type M17.9 [place] [address] 00910- 9068 Apr, Elbow pain, right M25.521 and Acute pain of right knee M25.561 [place] [address] 59740- 7320 Apr, [facility] [place] [id number] [place] [address] 19514 -2998 Mar, Right elbow pain M25.521 [place] [address] 07099- 0478 Mar, Hypertension I10 and Prediabetes R73.09 [place] [id number] [place] [address] 28158- 1044 Nov, [place] [id number] [place] [address] 68761- 3307 Oct, Sciatica, right side M54.31 ; Establishing care with new doctor, encounter for Z71.89 ; Tobacco abuse Z72.0 ; Tobacco abuse counseling Z71.6 and Essential hypertension I10 [facility] [id number] [place] [address] 23510 -8184 Oct, Lumbago M54.5 [place] [address] 83736- 5780 Aug, Prediabetes R73.09 ; Hypertension I10 and Impotence N52.9 [place] [id number] [place] [address] 66576- 5022 May, Ingrowing nail, right great toe 703.0 [facility] [address], [place] [address]- 2307 16 Mar, 2015 Dyslipidemia 272.4 [facility] [address] [place] [address] 56318 2546 Mar, Prediabetes 790.29 [facility] [id number] [place] [address] 70835 2546 Feb, Prediabetes 790.29 and Impotence of organic origin 607.84 [facility] [address] [place] [address] 76029- 6733 Feb, [facility] [id number] [place] [address] 27617- 0039 Feb, [facility] [id number] [place] [address] 21105- 4427 Dec, Hypertension 401.9 ; Impotence due to erectile dysfunction 607.84 and Hyperglycemia 790.29 [facility] [address], [place] [address]- 1144 Dec, [facility] [address] [place] [address] 96802- 3973 Dec, [facility] [address], [place] [address]- 7935 Dec, [facility] [address], [place] [address]- 4361 Nov, [facility] [address], [place] [address] 2549 Nov, [facility] [address] [place] [address] 03020- 9128 Oct, [facility] [address], [place] [address]- 1611 Oct, [facility] [address] [place] [address] 88106- 8195 Oct, [facility] [place] [facility] [address] [id number] [place] [address]- 5720 Oct, [facility] [place] [facility] [address] [id number] [place] [address]- 7353 Sep, [facility] [place] [facility] [address] [facility] [id number] [place] [address]- 7642 Sep, [facility] [place] [facility] [address] [id number] [place] [address]- 7958 Sep, [facility] [place] [facility] [address] [id number] [place] [address]- 0171 Sep, [facility] [place] [facility] [address] [id number] [place] [address]- 1823 Sep, [facility] [place] [facility] [address] [id number] [place] [address]- 8048 Sep, [facility] [place] [facility] [address] [id number], [place] [address]- 4626 Jul, [facility] [place] [facility] [address] [id number], [place] [address]- 0937 Jul, [facility] [place] [facility] [address] [id number], [place] [address]- 8627 Jul, [facility] [place] [facility] [address] [id number], [place] [address]- 9864 Jul, [facility] [place] [facility] [address] [id number], [place] [address]- 6170 Jul, [facility] [place] [facility] [address] [id number], [place] [address]- 6365 Jul, [facility] [place] [facility] [address] [id number] 9473 Jun, [facility] [place] [facility] [address] [id number], [place] [address]- 5534 Mar, [facility] [place] [facility] [address] [id number] [place] [address]- 0656 Mar, [facility] [address] [id number] [place] [address]- 8628 Mar, [facility] [address] [id number] [place] [address]- 7656 Mar, [facility] [address] [id number] [place] [address]- 7616 Feb, [facility] [address] [id number] [place] [address]- 6356 Feb, [facility] [address] [id number] [place] [address]- 3050 Nov, [facility] [address] [id number] [place] [address]- 8798 Nov, [facility] [address] [id number] [place] [address]- 2353 May, [facility] [address] [id number] [place] [address]- 4027 Apr, [facility] [address] [id number] [place] [address]- 1103 January, [facility] [address] [id number] [place] [address]- 6169 Oct, [facility] [address] [id number] [place] [address]- 1836 Sep, [facility] [address] [id number] [place] [address]- 0992 Sep, [facility] [place] [facility] [address] [id number] [place] [address]- 2726 Sep, [facility] [address] [id number] [place] [address]- 2796 Jul, [facility] [address] [id number] [place] [address]- 5906 Jul, [facility] [address] [id number] [place] [address]- [address] 11 Mar, 2012 [facility] [place] [facility] [address] [id number] [place] [address] 13 Sep, 2011 [facility] [place] [facility] [address] [id number] [place] [address] 11 Sep, 2011 [facility] [place] [facility] [address] [id number] [place] [address] 10 Sep, 2011 [facility] [place] [facility] [address] [id number] [place] [address] 09 Sep, 2011 [facility] [place] [facility] [address] [id number] [place] [address] 29 Aug, 2010 [facility] [place] [facility] [address] [id number] [place] [address] 20 Aug, 2010 [facility] [place] [facility] [address] [id number] [place] [address] 16 Aug, 2010 [facility] [place] [facility] [address] [id number] [place] [address] 15 Aug, 2010 [facility] [place] [facility] [address] [id number], [place] [address] 15 Aug, 2010 [facility] [place] [facility] [address] [id number], [place] [address] Aug, [facility] [place] [facility] [address] [id number], [place] [address] Sep, [facility] [place] [facility] [address] [id number] [place] [address] Aug, [facility] [place] [facility] [address] [id number], [place] [address] Jul, [facility] [place] [facility] [address] [id number] [address] Jun, [facility] [place] [facility] [address] [id number], [place] [address] Jun, [facility] [address] [facility] [place] [id number] [place] [address] May, IMMUNIZATIONS No Known Immunizations SOCIAL HISTORY Never Assessed REASON FOR VISIT Refer to GI for possible pancreatitis PLAN OF CARE VITAL SIGNS MEDICATIONS Unknown Medications RESULTS No Results PROCEDURES No Known procedures INSTRUCTIONS MEDICATIONS ADMINISTERED No Known Medications MEDICAL (GENERAL) HISTORY Type Description Date Medical History hypertension dx: 2008 Medical History hyperlipidemia Medical History prediabetes
--- OUTSIDE RECORDS SUMMARY | 2018-06-06 09:36 | XMS REPORT ---
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 Role Phone PAULINA MOE Unavailable PROBLEMS Type Condition ICD9-CM Code ANH34-AK Code Onset Dates Condition Status SNOMED Code Problem Prediabetes R73.09 Active 7264030 Problem Establishing care with new doctor, encounter for Z71.89 Active 416286892 Problem Impotence N52.9 Active 938579933 Problem Primary osteoarthritis of right hip M16.11 Active 621908053 Problem Other chronic pain G89.29 Active 32612181 Problem Tobacco abuse counseling Z71.6 Active 581664157 Problem Tobacco abuse Z72.0 Active 44074915 Problem Hypertension I10 Active 95010625 Problem Sciatica, right side M54.31 Active 69055359 ALLERGIES No Information ENCOUNTERS Encounter Location Date Diagnosis [place] [address] 35967- 2414 Feb, [facility] [address] [place] [address] [id number] [place] [address] 25834- 3772 Dec, Primary osteoarthritis of right hip M16.11 [facility] [id number] [place] [address] 74403- 4738 Nov, Primary osteoarthritis of right hip M16.11 [facility] [id number] [place] [address] 12289- 3857 Nov, Right leg pain M79.604 and Hypertension I10 [facility] [id number] [place] [address] 98186- 9212 Oct, [facility] [address] 57769- 7506 Sep, Prediabetes R73.09 ; Pre-op exam Z01.818 and Hypertension I10 [place] [address] 04363- 8256 14 Jul, 2017 Other chronic pain G89.29 and Pain in right hip M25.551 [place] [address] 69637- 8445 07 Jul, 2017 Elevated lipase R74.8 [place] [address] 48799- 0585 03 Jul, 2017 [place] [address] 82302- 6241 Jun, RUQ abdominal pain R10.11 [place] [address] 12706- 5777 Jun, RUQ abdominal pain R10.11 and Hematuria, unspecified type R31.9 [place] [address] 31022- 0118 Jun, Right hip pain M25.551 [place] [address] 79733- 3766 16 Jun, 2017 Prediabetes R73.03 ; Left foot pain M79.672 and Right hip pain M25.551 [facility] [id number] [place] [address] 24532 -7203 Nov, Acute non-recurrent maxillary sinusitis J01.00 [place] [id number] [place] [address] 96420- 2208 Nov, Hypertension I10 ; Prediabetes R73.09 and Dyslipidemia 272.[address] 80157- 2778 08 Nov, 2016 Hypertension I10 ; Prediabetes R73.03 and Colon cancer screening Z12.11 [place] [address] 89038- 0212 Oct, Hypertension I10 [place] [address] [id number] [place] [address] 97835- 9440 Oct, [place] [address] 41595- 3940 May, Strain of triceps tendon, right, initial encounter S46.811A and Osteoarthritis of right knee, unspecified osteoarthritis type M17.9 [place] [address] 55295- 8062 Apr, Elbow pain, right M25.521 and Acute pain of right knee M25.561 [place] [address] 24732- 8582 Apr, [facility] [place] [address] [id number] [place] [address] 81202 -3621 Mar, Right elbow pain M25.521 [place] [address] 41787- 5682 Mar, Hypertension I10 and Prediabetes R73.09 [place] [id number] [place] [address] 90758- 9926 Nov, [place] [id number] [place] [address] 99686- 7668 Oct, Sciatica, right side M54.31 ; Establishing care with new doctor, encounter for Z71.89 ; Tobacco abuse Z72.0 ; Tobacco abuse counseling Z71.6 and Essential hypertension I10 [facility] [id number] [place] [address] 83217 -3461 Oct, Lumbago M54.5 [place] [address] 60695- 4307 Aug, Prediabetes R73.09 ; Hypertension I10 and Impotence N52.9 [place] [address] [id number] [place] [address] 28746- 1050 May, Ingrowing nail, right great toe 703.0 [facility] [address], [place] [address] 0707 16 Mar, 2015 Dyslipidemia 272.4 [facility] [address] [place] [address] 98597 2546 Mar, Prediabetes 790.29 [facility] [id number] [place] [address] 14393 2546 Feb, Prediabetes 790.29 and Impotence of organic origin 607.84 [facility] [address] [place] [address] 84684- 4663 Feb, [facility] [id number] [place] [address] 59485- 9689 Feb, [facility] [id number] [place] [address] 03678- 2189 Dec, Hypertension 401.9 ; Impotence due to erectile dysfunction 607.84 and Hyperglycemia 790.29 [facility] [address], [place] [address]- 4936 Dec, [facility] [address] [place] [address] 16145- 0618 Dec, [facility] [address], [place] [address]- 0186 Dec, [facility] [address], [place] [address]- 6950 Nov, [facility] [address], [place] [address] 2545 Nov, [facility] [address] [place] [address] 24532- 4214 Oct, [facility] [address], [place] [address]- 3672 Oct, [facility] [address] [place] [address] 19984- 0374 Oct, [facility] [place] [facility] [address] [id number] [place] [address]- 3428 Oct, [facility] [place] [facility] [address] [id number] [place] [address]- 3723 Sep, [facility] [place] [facility] [address] [facility] [id number] [place] [address]- 2293 Sep, [facility] [place] [facility] [address] [id number] [place] [address]- 2844 Sep, [facility] [place] [facility] [address] [id number] [place] [address]- 3452 Sep, [facility] [place] [facility] [address] [id number] [place] [address]- 9067 Sep, [facility] [place] [facility] [address] [id number] [place] [address]- 5614 Sep, [facility] [place] [facility] [address] [id number], [place] [address]- 5201 Jul, [facility] [place] [facility] [address] [id number], [place] [address]- 1330 Jul, [facility] [place] [facility] [address] [id number], [place] [address]- 7161 Jul, [facility] [place] [facility] [address] [id number], [place] [address]- 2429 Jul, [facility] [place] [facility] [address] [id number], [place] [address]- 4781 Jul, [facility] [place] [facility] [address] [id number], [place] [address]- 0277 Jul, [facility] [place] [facility] [address] [id number] 2628 Jun, [facility] [place] [facility] [address] [id number], [place] [address]- 3731 Mar, [facility] [place] [facility] [address] [id number] [place] [address]- 2846 Mar, [facility] [address] [id number] [place] [address]- 4863 Mar, [facility] [address] [id number] [place] [address]- 1326 Mar, [facility] [address] [id number] [place] [address]- 3272 Feb, [facility] [address] [id number] [place] [address]- 4625 Feb, [facility] [address] [id number] [place] [address]- 2661 Nov, [facility] [address] [id number] [place] [address]- 9657 Nov, [facility] [address] [id number] [place] [address]- 0662 May, [facility] [address] [id number] [place] [address]- 1353 Apr, [facility] [address] [id number] [place] [address]- 1774 January, [facility] [address] [id number] [place] [address]- 8222 Oct, [facility] [address] [id number] [place] [address]- 3776 Sep, [facility] [address] [id number] [place] [address]- 2554 Sep, [facility] [place] [facility] [address] [id number] [place] [address]- 9766 Sep, [facility] [address] [id number] [place] [address]- 9516 Jul, [facility] [address] [id number] [place] [address]- 7487 Jul, [facility] [address] [id number] [place] [address]- 7926 11 Mar, 2012 [facility] [place] [facility] [address] [id number] [place] [address]- 2895 13 Sep, 2011 [facility] [place] [facility] [address] [id number] [place] [address]- 1019 11 Sep, 2011 [facility] [place] [facility] [address] [id number] [place] [address]- 7343 10 Sep, 2011 [facility] [place] [facility] [address] [id number] [place] [address]- 9392 09 Sep, 2011 [facility] [place] [facility] [address] [id number] [place] [address]- 8630 29 Aug, 2010 [facility] [place] [facility] [address] [id number] [place] [address]- 8373 20 Aug, 2010 [facility] [place] [facility] [address] [id number] [place] [address]- 7065 16 Aug, 2010 [facility] [place] [facility] [address] [id number] [place] [address]- 8608 15 Aug, 2010 [facility] [place] [facility] [address] [id number], [place] [address]- 8165 15 Aug, 2010 [facility] [place] [facility] [address] [id number], [place] [address]- 3437 Aug, [facility] [place] [facility] [address] [id number], [place] [address]- 4767 Sep, [facility] [place] [facility] [address] [id number] [place] [address]- 0056 Aug, [facility] [place] [facility] [address] [id number], [place] [address]- 4136 Jul, [facility] [place] [facility] [address] [id number]- 6156 Jun, [facility] [place] [facility] [address] [id number], [place] [address]- 0016 Jun, [facility] [address] [facility] [id number] [place] [address]- 6767 May, IMMUNIZATIONS No Known Immunizations SOCIAL HISTORY Never Assessed REASON FOR VISIT Referral for hip joint injection PLAN OF CARE VITAL SIGNS MEDICATIONS Unknown Medications RESULTS No Results PROCEDURES No Known procedures INSTRUCTIONS MEDICATIONS ADMINISTERED No Known Medications MEDICAL (GENERAL) HISTORY Type Description Date Medical History hypertension dx: 2008 Medical History hyperlipidemia Medical History prediabetes
--- OUTSIDE RECORDS SUMMARY | 2018-06-06 09:36 | XMS REPORT ---
Author Author PAULINA MOE Organization [facility] Address [address] [place] [address] Care Team Providers Care Bariatric Coordinator Name Role Phone PAULINA MOE Unavailable PROBLEMS Type Condition ICD9-CM Code WOM81-CN Code Onset Dates Condition Status SNOMED Code Problem Impotence N52.9 Active 392667497 Problem Sciatica, right side M54.31 Active 76551995 Problem Tobacco abuse counseling Z71.6 Active 223017811 Problem Prediabetes R73.09 Active 4892013 Problem Hyperlipidemia, unspecified E78.5 Active 78446485 Problem Primary osteoarthritis of right hip M16.11 Active 786331686 Problem Tobacco abuse Z72.0 Active 87718548 Problem Establishing care with new doctor, encounter for Z71.89 Active 911795692 Problem Other chronic pain G89.29 Active 44764019 Problem Hypertension I10 Active 19384213 ALLERGIES No Information ENCOUNTERS Encounter Location Date Diagnosis [place] [address] [address]88- 2224 18 Feb, 2018 [place] [address] 47813- 7083 Feb, Hyperlipidemia, unspecified E78.5 [place] [address] 06154- 6666 Feb, Prediabetes R73.09 ; Hypertension I10 ; Colon cancer screening Z12.11 ; Hyperlipidemia, unspecified E78.5 ; Pain in right hip M25.551 and Viral warts, unspecified type B07.9 [place] [address] 08864- 7143 Dec, Primary osteoarthritis of right hip M16.11 [place] [address] 98617- 5637 Nov, Primary osteoarthritis of right hip M16.11 [place] [address] [place] [id number] [place] [address] 84261- 4050 Nov, Right leg pain M79.604 and Hypertension I10 [place] [address] [place] [id number] [place] [address] 71404- 6377 Oct, [place] [address] 04475- 2852 Sep, Prediabetes R73.09 ; Pre-op exam Z01.818 and Hypertension I10 [place] [address] 10702- 2274 14 Jul, 2017 Other chronic pain G89.29 and Pain in right hip M25.551 [place] [address] [place] [id number] [place] [address] 16080- 5876 Jul, Elevated lipase R74.8 [place] [address] 11732- 3662 Jul, [place] [address] 24370- 5082 Jun, RUQ abdominal pain R10.11 [place] [address] [place] [id number] [place] [address] 41585- 6135 Jun, RUQ abdominal pain R10.11 and Hematuria, unspecified type R31.9 [place] [address] [place] [id number] [place] [address] 07658- 6659 Jun, Right hip pain M25.551 [place] [address] 33213- 3261 Jun, Prediabetes R73.03 ; Left foot pain M79.672 and Right hip pain M25.551 [facility] [address] [place] [id number] [place] [address] 03024 -2950 Nov, Acute non-recurrent maxillary sinusitis J01.00 [place] [address] [place] [id number] [place] [address] 78384- 0530 Nov, Hypertension I10 ; Prediabetes R73.09 and Dyslipidemia 272.4 [place] [address] [place] [id number] [place] [address] 96655- 4920 Nov, Hypertension I10 ; Prediabetes R73.03 and Colon cancer screening Z12.11 [place] [address] 69591- 8573 Oct, Hypertension I10 [place] [address] 54381- 6680 Oct, [place] [address] 83553- 4975 May, Strain of triceps tendon, right, initial encounter S46.811A and Osteoarthritis of right knee, unspecified osteoarthritis type M17.9 [place] [address] 69902- 4726 Apr, Elbow pain, right M25.521 and Acute pain of right knee M25.561 [place] [address] 76121- 0436 Apr, [facility] [address] [place] [id number] [place] [address] 22119 -0497 Mar, Right elbow pain M25.521 [place] [address] 24821- 5172 Mar, Hypertension I10 and Prediabetes R73.09 [place] [address] 34522- 6751 Nov, [place] [address] 18023- 9780 Oct, Sciatica, right side M54.31 ; Establishing care with new doctor, encounter for Z71.89 ; Tobacco abuse Z72.0 ; Tobacco abuse counseling Z71.6 and Essential hypertension I10 [facility] [address] [address] -7074 Oct, Lumbago M54.5 [facility] [address] [place] [address] 86387- 0581 Aug, Prediabetes R73.09 ; Hypertension I10 and Impotence N52.9 [facility] [address] [place] [id number] [place] [address] 92081- 0319 May, Ingrowing nail, right great toe 703.0 [place] [address] [place] [id number] [place] [address] 58469- 9777 Mar, Dyslipidemia 272.4 [place] [address] [place] [id number] [place] [address] 44015- 9243 Mar, Prediabetes 790.29 [place] [address] [place] [id number] [place] [address] 13353- 9402 Feb, Prediabetes 790.29 and Impotence of organic origin 607.84 [place] [address] [place] [id number] [place] [address] 49676- 3859 Feb, [place] [address] [place] [id number] [place] [address] 92402- 4495 Feb, [facility] [address] [place] [address] 98191- 4297 Dec, Hypertension 401.9 ; Impotence due to erectile dysfunction 607.84 and Hyperglycemia 790.29 [place] [address] [place] [address] 76423- 5645 Dec, [place] [address] [place] [id number] [place] [address] 73048- 5232 Dec, [place] [address] [place] [id number] [place] [address] 43691- 1953 Dec, [facility] [address] [place] [id number] [place] [address] 13043- 0133 Nov, [facility] [place] [facility] [address] [id number] [place] [address]- 2214 Nov, [facility] [place] [facility] [address] [id number] [place] [address]- 4589 Oct, [facility] [place] [facility] [address] [id number] [place] [address]- 3284 Oct, [facility] [place] [facility] [address] [id number] [place] [address]- 1382 Oct, [facility] [place] [facility] [address] [id number] [place] [address]- 6495 Oct, [facility] [place] [facility] [address] [id number] [place] [address]- 0151 Sep, [facility] [place] [facility] [address] [id number] [place] [address]- 0507 Sep, [facility] [place] [facility] [address] [id number] [place] [address]- 8974 Sep, [facility] [place] [facility] [address] [id number] [place] [address]- 3387 Sep, [facility] [place] [facility] [address] [id number] [place] [address]- 3766 Sep, [facility] [place] [facility] [address] [id number] [place] [address]- 8357 Sep, [facility] [place] [facility] [address] [id number], [place] [address]- 0457 Jul, [facility] [place] [facility] [address] [id number] [place] [address]- 1524 Jul, [facility] [place] [facility] [address] [id number] [place] [address]- 1785 Jul, [facility] [place] [facility] [address] [id number] [place] [address]- 7971 Jul, [facility] [place] [facility] [address] [id number] [place] [address]- 254 Jul, [facility] [place] [facility] [address] [id number] [place] [address]- 1522 Jul, [facility] [place] [facility] [address] [id number] [place] [address]- 2546 Jun, [facility] [place] [facility] [address] [id number] [place] [address]- 0621 Mar, [facility] [place] [facility] [address] [id number] [place] [address]- 6198 Mar, [facility] [place] [facility] [address] [id number] [place] [address]- 4351 Mar, [facility] [place] [facility] [address] [id number] [place] [address]- 6265 Mar, [facility] [place] [facility] [address] [id number] [place] [address]- 9344 Feb, [facility] [place] [facility] [address] [id number] [place] [address]- 5666 Feb, [facility] [place] [facility] [address] [id number] [place] [address]- 7223 Nov, [facility] [place] [facility] [address] [id number] [place] [address]- 6823 Nov, [facility] [place] [facility] [address] [id number] [place] [address]- 5557 May, [facility] [place] [facility] [address] [id number] [place] [address]- 2549 Apr, [facility] [place] [facility] [address] [id number] [place] [address]- 2546 January, [facility] [place] [facility] [address] [id number] [place] [address]- 2546 Oct, [facility] [place] [facility] [address] [id number] [place] [address]- 0437 Sep, [facility] [address] [id number] [place] [address]- 7563 Sep, [facility] [place] [facility] [address] [id number] [place] [address]- 4746 Sep, [facility] [place] [facility] [address] [id number] [place] [address]- 7630 Jul, [facility] [place] [facility] [address] [id number] [place] [address]- 5906 Jul, [facility] [address] [id number] [place] [address]- 7909 Mar, [facility] [place] [facility] [address] [id number] [place] [address]- 0113 Sep, [facility] [address] [id number] [place] [address]- 8116 Sep, [facility] [place] [facility] [address] [id number] [place] [address]- 6548 Sep, [facility] [address] [id number] [place] [address]- 8089 Sep, [facility] [address] [id number] [place] [address]- 5649 Aug, [facility] [place] [facility] [address] [id number] [place] [address] Aug, [facility] [place] [facility] [address] [id number] [place] [address] 16 Aug, 2010 [facility] [place] [facility] [address] [id number] [place] [address] 15 Aug, 2010 [facility] [place] [facility] [address] [id number] [place] [address] Aug, [facility] [place] [facility] [address] [id number] [place] [address] Aug, [facility] [place] [facility] [id number] [address] Sep, [facility] [id number] [id number] Aug, [facility] [id number] [address] Jul, [facility] [id number] [address] Jun, [facility] [id number] [address] Jun, [facility] [id number] [address] May, IMMUNIZATIONS No Known Immunizations SOCIAL HISTORY Never Assessed REASON FOR VISIT Missed call PLAN OF CARE VITAL SIGNS MEDICATIONS Unknown Medications RESULTS No Results PROCEDURES No Known procedures INSTRUCTIONS MEDICATIONS ADMINISTERED No Known Medications MEDICAL (GENERAL) HISTORY Type Description Date Medical History hypertension dx: 2008 Medical History hyperlipidemia Medical History prediabetes
[2018-06-06] MEDS ORDERED: NS IV 500 ML 500 ML IV PRN (09:37)
--- OUTSIDE RECORDS SUMMARY | 2018-06-06 09:37 | XMS REPORT ---
Author Author PAULINA MOE Organization [facility] Address [address] [place] [address] Care Team Providers Care Public Message Service Supervisor Name Role Phone PAULINA MOE Unavailable PROBLEMS Type Condition ICD9-CM Code MDL22-TV Code Onset Dates Condition Status SNOMED Code Problem Prediabetes R73.09 Active 1676746 Problem Establishing care with new doctor, encounter for Z71.89 Active 288709992 Problem Impotence N52.9 Active 816506699 Problem Primary osteoarthritis of right hip M16.11 Active 302045051 Problem Other chronic pain G89.29 Active 24570917 Problem Tobacco abuse counseling Z71.6 Active 663539110 Problem Tobacco abuse Z72.0 Active 58849565 Problem Hypertension I10 Active 63225384 Problem Sciatica, right side M54.31 Active 28119139 ALLERGIES No Information ENCOUNTERS Encounter Location Date Diagnosis [place] [address] [address] Feb, [facility] [address] [place] [id number] [place] [address]65- 2630 Dec, Primary osteoarthritis of right hip M16.11 [facility] [id number] [place] [address]36- 9792 Nov, Primary osteoarthritis of right hip M16.11 [facility] [id number] [place] [address] 48706- 8652 Nov, Right leg pain M79.604 and Hypertension I10 [facility] [address] [id number] [place] [address] 02227- 3719 Oct, [facility] [address] [address] Sep, Prediabetes R73.09 ; Pre-op exam Z01.818 and Hypertension I10 [place] [address] 9[address]- [address]34 14 Jul, 2017 Other chronic pain G89.29 and Pain in right hip M25.551 [place] [address] 8[address]- 8983 07 Jul, 2017 Elevated lipase R74.8 [place] [address] 26[address]- 3456 03 Jul, 2017 [place] [address] 36[address]- 93[address] Jun, RUQ abdominal pain R10.11 [place] [address] 77[address]- [address] Jun, RUQ abdominal pain R10.11 and Hematuria, unspecified type R31.9 [place] [address] 04093- 4558 Jun, Right hip pain M25.551 [place] [address] [address]191- 3353 16 Jun, 2017 Prediabetes R73.03 ; Left foot pain M79.672 and Right hip pain M25.551 [facility] [address] [place] [address] [id number] [place] [address] -[address]64 Nov, Acute non-recurrent maxillary sinusitis J01.00 [place] [address] [id number] [place] [address] 17855- 6867 Nov, Hypertension I10 ; Prediabetes R73.09 and Dyslipidemia 272.[address] [address]- [address] 08 Nov, 2016 Hypertension I10 ; Prediabetes R73.03 and Colon cancer screening Z12.11 [place] [address] 77488- 9765 Oct, Hypertension I10 [place] [address] [id number] [place] [address] 30974- 9335 Oct, [place] [address] [address]- [address] May, Strain of triceps tendon, right, initial encounter S46.811A and Osteoarthritis of right knee, unspecified osteoarthritis type M17.9 [place] [address] 32246- 2335 Apr, Elbow pain, right M25.521 and Acute pain of right knee M25.561 [place] [address] 27928- 2591 Apr, [facility] [place] [address] [id number] [place] [address] -1058 Mar, Right elbow pain M25.521 [place] [address] 07760- 1246 Mar, Hypertension I10 and Prediabetes R73.09 [place] [address] [id number] [place] [address] 62612- 3546 Nov, [place] [address] [id number] [place] [address] 15261- 7559 Oct, Sciatica, right side M54.31 ; Establishing care with new doctor, encounter for Z71.89 ; Tobacco abuse Z72.0 ; Tobacco abuse counseling Z71.6 and Essential hypertension I10 [facility] [address] [id number] [place] [address] Oct, Lumbago M54.5 [place] [address] 18802- 4461 Aug, Prediabetes R73.09 ; Hypertension I10 and Impotence N52.9 [place] [address] [place] [id number] [place] [address] 97670- 3070 May, Ingrowing nail, right great toe 703.0 [facility] [address] [address] 9360 16 Mar, 2015 Dyslipidemia 272.4 [facility] [id number] [place] [address] 22182 2546 Mar, Prediabetes 790.29 [facility] [address] [place] [id number] [place] [address] 87481 2546 Feb, Prediabetes 790.29 and Impotence of organic origin 607.84 [facility] [address] [place] [address] 72221- 9492 Feb, [facility] [address] [id number] [place] [address] 63925- 6419 Feb, [facility] [address] [address] [id number] [place] [address] 70886- 4067 Dec, Hypertension 401.9 ; Impotence due to erectile dysfunction 607.84 and Hyperglycemia 790.29 [facility] [address], [place] [address]- 2447 Dec, [facility] [id number] [place] [address] 16677- 1067 Dec, [facility] [address] [place] [address]- 56[address] Dec, [facility] [address] [place] [address]- 2495 Nov, [facility] [address] [place] [address] 2541 Nov, [facility] [id number] [place] [address] 98065- 6514 Oct, [facility] [address] [place] [address]- 5[address] Oct, [facility] [id number] [place] [address] 24648- 4613 Oct, [facility] [place] [facility] [address] [id number] [place] [address]- 2174 Oct, [facility] [place] [facility] [address] [id number] [place] [address]- 0253 Sep, [facility] [place] [facility] [address] [facility] [id number] [place] [address]- 7650 Sep, [facility] [place] [facility] [address] [id number] [place] [address]- 2833 Sep, [facility] [place] [facility] [address] [id number] [place] [address]- 6753 Sep, [facility] [place] [facility] [address] [id number] [place] [address]- 0860 Sep, [facility] [place] [facility] [address] [id number] [place] [address]- 9280 Sep, [facility] [place] [facility] [address] [id number], [place] [address]- 0448 Jul, [facility] [place] [facility] [address] [id number], [place] [address]- 0368 Jul, [facility] [place] [facility] [address] [id number], [place] [address]- 6611 Jul, [facility] [place] [facility] [address] [id number], [place] [address]- 7023 Jul, [facility] [place] [facility] [address] [id number], [place] [address]- 0652 Jul, [facility] [place] [facility] [address] [id number], [place] [address]- 3220 Jul, [facility] [place] [facility] [address] [id number] [address] Jun, [facility] [place] [facility] [address] [id number], [place] [address]- 8948 Mar, [facility] [place] [facility] [address] [id number] [place] [address]- 2766 Mar, [facility] [address] [id number] [place] [address]- 7102 Mar, [facility] [address] [id number] [place] [address]- 2586 Mar, [facility] [address] [id number] [place] [address]- 1031 Feb, [facility] [address] [id number] [place] [address]- 8056 Feb, [facility] [address] [id number] [place] [address]- 7466 Nov, [facility] [address] [id number] [place] [address]- 2795 Nov, [facility] [address] [id number] [place] [address]- 0197 May, [facility] [address] [id number] [place] [address]- 6685 Apr, [facility] [address] [id number] [place] [address]- 8686 January, [facility] [address] [id number] [place] [address]- 1658 Oct, [facility] [address] [id number] [place] [address]- 6136 Sep, [facility] [address] [id number] [place] [address]- 9013 Sep, [facility] [place] [facility] [address] [id number] [place] [address]- 7296 Sep, [facility] [address] [id number] [place] [address]- 6776 Jul, [facility] [address] [id number] [place] [address]- 9206 Jul, [facility] [address] [id number] [place] [address]- 9975 11 Mar, 2012 [facility] [place] [facility] [address] [id number] [place] [address]- 0596 13 Sep, 2011 [facility] [place] [facility] [address] [id number] [place] [address]- 1058 11 Sep, 2011 [facility] [place] [facility] [address] [id number] [place] [address]- 1376 10 Sep, 2011 [facility] [place] [facility] [address] [id number] [place] [address]- 0949 09 Sep, 2011 [facility] [place] [facility] [address] [id number] [place] [address]- 6786 29 Aug, 2010 [facility] [place] [facility] [address] [id number] [place] [address]- 2203 20 Aug, 2010 [facility] [place] [facility] [address] [id number] [place] [address]- 5876 16 Aug, 2010 [facility] [place] [facility] [address] [id number] [place] [address]- 2329 15 Aug, 2010 [facility] [place] [facility] [address] [id number], [place] [address]- 9647 15 Aug, 2010 [facility] [place] [facility] [address] [id number], [place] [address]- 2413 Aug, [facility] [place] [facility] [address] [id number], [place] [address]- 2639 Sep, [facility] [place] [facility] [address] [id number] [place] [address]- 2523 Aug, [facility] [place] [facility] [address] [id number], [place] [address]- 4776 Jul, [facility] [place] [facility] [address] [id number] [address] Jun, [facility] [place] [facility] [address] [id number], [place] [address]- 7996 Jun, [facility] [address] [facility] [id number] [place] [address]- 5999 May, IMMUNIZATIONS No Known Immunizations SOCIAL HISTORY Never Assessed REASON FOR VISIT Orders for results PLAN OF CARE Activity Details Pending Test CT Scan : Abdomen w/o Contrast VITAL SIGNS MEDICATIONS Medication Instructions Dosage Frequency Start Date End Date Duration Status Hydrocodone-Acetaminophen 5-325 MG Orally every 6 hrs 1 tablet as needed 6h Jul, Active RESULTS No Results PROCEDURES No Known procedures INSTRUCTIONS MEDICATIONS ADMINISTERED No Known Medications MEDICAL (GENERAL) HISTORY Type Description Date Medical History hypertension dx: 2008 Medical History hyperlipidemia Medical History prediabetes
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
[2018-06-06] MEDS ORDERED: fentaNYL INJECTION 100 MCG/2 ML AMP IVP ONE (09:45)
[2018-06-06] MEDS ORDERED: MIDAZOLAM 2 MG/2 ML (VERSED) VIAL IVP ONE (09:45)
--- NOTE | 2018-06-06 11:21 | Conscious Sedation/ASA ---
Conscious Sedation Pre-Proced Time Reviewed: 11:21 ASA Class: 2 Airway Mallampati Classification: ([place] appropriate class) I. II. III, IV Lungs Heart ASA score ASA 1: a normal healthy patient ASA 2: a patient with a mild systemic disease (mid diabetes, controlled hypertension, obesity ASA 3: a patient with a severe systemic disease that limits activity (angina , COPD, prior Myocardial infarction) ASA 4: a patient with an incapacitating disease that is a constant threat to life (CHF, renal failure) ASA 5: a moribund patient not expected to survive 24 hrs. (ruptured aneurysm) ASA 6: a declared brain patient whose organs are being harvested. For emergent operations, add the letter E after the classification Grade 1 Sedation Plan: Discussed options with patient/fam Note The patient is an appropriate candidate to undergo the planned procedure, sedation, and anesthesia. The patient immediately re-assessed prior to indication. BRIANA RUBIN MD Jun 06, 2018 11:21
--- NOTE | 2018-06-06 11:21 | History & Physicial ---
History of Present Illness History of Present Illness Reason for visit/HPI to undergo colonoscopy in view of a positive COLOGUARD test. Date of Admission 06/06/18 Date Seen by Provider: Jun 06, 2018 Time Seen by Provider: 11:18 I consulted on this patient on 06/06/18 11:18 Attending Physician Briana Rubin MD Admitting Physician [facility] Consult Allergies and Home Medications Allergies Coded Allergies: No Known Drug Allergies (Unverified , 03/13/12) Home Medications Amlodipine Besylate 10 Mg Tablet, 10 MG PO HS, (Reported) Lisinopril 40 Mg Tablet, 40 MG PO HS, (Reported) Metformin HCl 500 Mg Tablet, 500 MG PO HS, (Reported) Patient Home Medication List Home Medication List Reviewed: Yes Past Ajzgtmc-Wugfbn-Sveztm Hx Patient Social History Marrital Status: single, Employed/Student: employed Alcohol Use: Rarely Uses Recreational Drug Use: No Smoking Status: Current Everyday Smoker Type Used: Cigarettes 2nd Hand Smoke Exposure: No Recent Foreign Travel: No Contact w/other who traveled: No Recent Hopitalizations: No Recent Infectious Disease Expo: No Immunizations Up To Date Tetanus Booster (TDap): Unknown Pediatric: No Seasonal Allergies Seasonal Allergies: No Surgeries No Respiratory No Cardiovascular Yes Hypertension Neurological No Gastrointestinal No Musculoskeletal No Endocrine History of Endocrine Disorders: Yes ("PRE-DIABETIC") Endocrine Disorders: Diabetes, Non-Insulin dep Cancer No Psychosocial History of Psychiatric Problem: No Integumentary History of Skin or Integumenta: No Blood Transfusions History of Blood Disorders: No Family Medical History Significant Family History: No Pertinent Family Hx Review of Systems Constitutional: no symptoms reported EENTM: no symptoms reported Respiratory: no symptoms reported Cardiovascular: no symptoms reported Gastrointestinal: no symptoms reported Genitourinary: no symptoms reported Musculoskeletal: no symptoms reported Skin: no symptoms reported Psychiatric/Neurological: No Symptoms Reported Physical Exam Vital Signs Vital Signs - First Documented 06/06/18 09:33 Temp 98.0 Pulse 64 Resp 16 B/P (MAP) 114/82 (93) Pulse Ox 98 O2 Delivery Room Air Capillary Refill : Height, Weight, BMI Height: 5'9.00" Weight: 160lbs. 0.0oz. 72.126608cw; 23.6 BMI Method:Stated General Appearance: No Apparent Distress Respiratory: Lungs Clear Cardiovascular: Regular Rate, Rhythm Gastrointestinal: Non Tender, Soft Rectal: Deferred Extremity: Normal Inspection Neurologic/Psychiatric: Alert, Oriented x3 Skin: Warm/Dry Assessment/Plan Assessment and Plan Gentleman with a positive cologuard test. Possibility of polyps carcinoma etc. discussed in detail. Willing to proceed Admission Diagnosis Admission Status: Other (Outpt Proc) BRIANA RUBIN MD Jun 06, 2018 11:21
[2018-06-06] MEDS ORDERED: MIDAZOLAM 2 MG/2 ML (VERSED) VIAL ONE ×4 (11:54)
[2018-06-06] MEDS ORDERED: fentaNYL INJECTION 100 MCG/2 ML AMP ONE (11:54)
--- NOTE | 2018-06-06 12:09 | Endo Procedure Record ---
Endo Procedure Report Date of Procedure Last Colonoscopy: No Jun 06, 2018 Surgeon (s) BRIANA RUBIN MD Post Procedure/Op Diagnosis 3 mm sessile polyp at the proximal rectum 3 mm sessile polyp at the splenic flexure 1 mm polyp at the ascending colon Procedure Performed colonoscopy to cecum Snare polypectomy 2 Hot biopsy polypectomy 1 Description of Procedure Anesthesia Type: Conscious Sedation Specimen(s) collected/removed colon polyps Description of the Procedure Indication for the procedure: This gentleman came in for colonoscopy, in view of a positive COLOGUARD test. Informed consent was obtained after reviewing the possibility of finding polyps and discussing the iatrogenic complications of leaving and perforation. Description of the procedure: He was placed in left lateral rectus position and his vital signs were monitored. Conscious sedation was achieved using Versed and fentanyl. Digital rectal examination was unremarkable. The colonoscope was then introduced in the rectum and advanced all the way up to the cecum. The quality of bowel preparation was excellent. Scope was then withdrawn slowly and the mucosa examined in a systematic fashion. Findings: 1. 3 mm sessile polyp at the proximal rectum, that was snared and retrieved 2. 3 mm sessile polyp at the splenic flexure that was managed in a similar fashion. 3. 1 mm polyp at the ascending colon, that was excised with hot biopsy forceps He tolerated the procedure well and was taken back to the nursing area in a stable condition. Impression: Positive cologuard test. Multiple polyps excised. Recommend repeating in 1 year. Copy Copies To 1: CHAMP SHARMA XAVIER M MD Jun 06, 2018 12:09
--- NOTE | 2018-06-06 12:27 | Discharge Inst-Simple/Standard ---
Discharge Inst-Standard Discharge Medications New, Converted or Re-Newed RX: Other Patient Instructions/Follow Up Plan of Care/Instructions/FU: follow-up colonoscopy in one year Activity as Tolerated: Yes Discharge Diet: ADA Diet BRIANA RUBIN MD Jun 06, 2018 12:27
[2018-06-06 12:40] VITALS: BP 152/88
[2018-06-06 13:10] VITALS: BP 122/88
== END 2018-06-06 13:40 | disposition home or self-care (01) ==
LOC: ENDO 09:30
PROVIDERS: ATTEND Surgery
DX: D12.3 Benign neoplasm of transverse colon (principal); D12.2 Benign neoplasm of ascending colon; K62.1 Rectal polyp; I10 Essential (primary) hypertension; R73.03 Prediabetes; F17.210 Nicotine dependence, cigarettes, uncomplicated; Z79.84 Long term (current) use of oral hypoglycemic drugs; Z79.899 Other long term (current) drug therapy
CPT/HCPCS: 82962; 88305

== ENCOUNTER → 2019-01-30 | Outpatient (REF) ==
[~2019-01-30] MED LIST changes: -AMLO10TA6 PO; +AMLO10TA7 PO
--- NOTE | 2019-01-30 18:10 | Diagnostic Imaging Report ---
PROCEDURE: CT right shoulder without contrast. TECHNIQUE: Multiple contiguous axial images were obtained through the right upper extremity without the use of intravenous contrast. Sagittal and coronal reformations were then performed. Auto Exposure Controls were utilized during the CT exam to meet ALARA standards for radiation dose reduction. DATE: January 30, 2019. INDICATION: 53-year-old male, right shoulder pain. Injury at work. COMPARISON: None. FINDINGS: The humeral head is normally positioned relative to the glenoid. There is no glenohumeral joint space loss. There is no osteophyte formation or subchondral cystic change. The acromioclavicular joint is normally aligned. There are mild acromioclavicular degenerative changes without undersurface osteophyte. There is no os acromiale. There is no identified acute fracture. There is no concerning bone lesion. There is nondiagnostic direct assessment of the rotator cuff tendons on CT as well as limitations for evaluation of additional tendons and musculature. There is no prominent fatty atrophy of the rotator cuff musculature. The visualized portions of the right lung are clear. IMPRESSION: 1. No acute fracture. 2. No abnormal bone alignment. 3. Mild acromioclavicular degenerative changes without large undersurface osteophyte. No os acromiale. 4. No fatty atrophy of the rotator cuff musculature. Nondiagnostic direct evaluation of rotator cuff tendons, additional tendons, and significant limitations for evaluation of the musculature on CT. Dictated by: Dictated on workstation # [id number]
== END | disposition home or self-care (01) ==
LOC: RAD 14:55
PROVIDERS: ATTEND Nurse Practitioner Family
CPT/HCPCS: 73200

== ENCOUNTER 2019-12-22 21:25 | Emergency (ER) | payer OTHER ==
[~2019-12-22] VITALS: Ht 177 cm; Wt 70.0 kg
[~2019-12-22 21:25] MED LIST changes: -MINO100C2 PO; +MINO100C5 PO
[2019-12-22] MEDS ORDERED: fentaNYL INJECTION 100 MCG/2 ML AMP ONE (21:30)
[2019-12-22] MEDS ORDERED: KETOROLAC 30 MG/ML VIAL ONE (21:30)
--- NOTE | 2019-12-22 21:37 | ED Abdominal Pain ---
General Chief Complaint: Abdominal/GI Problems Stated Complaint: ABD PAIN/N/V Source of Information: Patient Exam Limitations: No Limitations (ROX SILVA APRN) History of Present Illness Date Seen by Provider: Dec 22, 2019 Time Seen by Provider: 21:36 Initial Comments To ER by private vehicle with reports of sudden onset right-sided abdominal pain that began about 4 PM today after work. This is associated with nausea and vomiting The pain radiates through to the back but does not radiate down to the testicles. No nausea or vomiting. No history of this. He is a non-insulin- dependent diabetic but states he does not take his blood sugars. Timing/Duration: 4-6 Hours Severity/Quality: Moderate Location: RLQ Radiation: No Radiation Activities at Onset: None Associated Symptoms: Nausea/Vomiting (ROX SILVA APRN) Allergies and Home Medications Allergies Coded Allergies: No Known Drug Allergies (Unverified , 03/13/12) Home Medications Amlodipine Besylate 10 Mg Tablet, 10 MG PO HS, (Reported) Hydrocodone/Acetaminophen 1 Each Tablet, 1 EACH PO Q4H PRN for PAIN-MODERATE (5- 7) Prescribed by: LISETH BOWEN on [birth year]1937 Lisinopril 40 Mg Tablet, 40 MG PO HS, (Reported) Metformin HCl 500 Mg Tablet, 500 MG PO HS, (Reported) Ondansetron 4 Mg Tab.rapdis, 4 MG SL Q4H PRN for NAUSEA/VOMITING Prescribed by: LISETH BOWEN on 12/23/1936 Patient Home Medication List Home Medication List Reviewed: Yes (ROX SILVA APRN) Review of Systems Review of Systems Constitutional: see HPI EENTM: No Symptoms Reported Respiratory: No Symptoms Reported Cardiovascular: No Symptoms Reported Gastrointestinal: See HPI, Abdominal Pain, Nausea, Vomiting Genitourinary: No Symptoms Reported Musculoskeletal: no symptoms reported Skin: no symptoms reported Psychiatric/Neurological: No Symptoms Reported (ROX SILVA APRN) Past Txwgluw-Aqbshi-Sebdrr Hx Patient Social History Type Used: Cigarettes 2nd Hand Smoke Exposure: No Recent Foreign Travel: No Contact w/Someone Who Travel: No Recent Hopitalizations: No (ROX SILVA APRN) Immunizations Up To Date Tetanus Booster (TDap): Unknown PED Vaccines UTD: No (ROX SILVA APRN) Seasonal Allergies Seasonal Allergies: No (ROX SILVA APRN) Past Medical History Surgeries: No Respiratory: No Cardiac: Yes Hypertension Neurological: No Gastrointestinal: No Musculoskeletal: No Endocrine: Yes ("PRE-DIABETIC") Diabetes, Non-Insulin dep Cancer: No Psychosocial: No Integumentary: No Blood Disorders: No (ROX SILVA APRN) Family Medical History No Pertinent Family Hx (ROX SILVA APRN) Physical Exam Vital Signs Vital Signs - First Documented 12/22/19 21:31 Temp 36.9 Pulse 64 Resp 20 B/P (MAP) 174/99 (124) Pulse Ox 98 O2 Delivery Room Air (LISETH MATTHEWS MD) Vital Signs Capillary Refill : (ROX SILVA APRN) Height/Weight/BMI Height: 5'9.00" Weight: 160lbs. 0.0oz. [id number]; 23.6 BMI Method:Stated General Appearance: WD/WN, moderate distress (patient decided to lay prone on the waiting room floor while waiting for a gurney to be brought to him, he was unable to get himself up and onto the gurney without any assistance.) HEENT: PERRL/EOMI, normal ENT inspection Respiratory: no respiratory distress, no accessory muscle use Gastrointestinal: normal bowel sounds, soft, tenderness (right lower) Extremities: normal range of motion, non-tender Neurologic/Psychiatric: alert, normal mood/affect, oriented x 3 Skin: normal color, warm/dry (ROX SILVA APRN) Progress/Results/Core Measures Results/Orders Lab Results Laboratory Tests Test 12/22/19 21:34 12/22/19 21:39 12/22/19 23:35 Range/Units White Blood Count 11.5 H 4.3-11.0 10^3/uL Red Blood Count 4.68 4.35-5.85 10^6/uL Hemoglobin 14.1 13.3-17.7 G/DL Hematocrit 42 40-54 % Mean Corpuscular Volume 89 80-99 FL Mean Corpuscular Hemoglobin 30 25-34 PG Mean Corpuscular Hemoglobin Concent 34 32-36 G/DL Red Cell Distribution Width 14.3 10.0-14.5 % Platelet Count 277 130-400 10^3/uL Mean Platelet Volume 9.7 7.4-10.4 FL Neutrophils (%) (Auto) 68 42-75 % Lymphocytes (%) (Auto) 19 12-44 % Monocytes (%) (Auto) 12 0-12 % Eosinophils (%) (Auto) 1 0-10 % Basophils (%) (Auto) 0 0-10 % Neutrophils # (Auto) 7.9 H 1.8-7.8 X 10^3 Lymphocytes # (Auto) 2.2 1.0-4.0 X 10^3 Monocytes # (Auto) 1.4 H 0.0-1.0 X 10^3 Eosinophils # (Auto) 0.1 0.0-0.3 10^3/uL Basophils # (Auto) 0.0 0.0-0.1 10^3/uL Sodium Level 139 135-145 MMOL/L Potassium Level 3.7 3.6-5.0 MMOL/L Chloride Level 106 98-107 MMOL/L Carbon Dioxide Level 19 L 21-32 MMOL/L Anion Gap 14 5-14 MMOL/L Blood Urea Nitrogen 13 7-18 MG/DL Creatinine 1.10 0.60-1.30 MG/DL Estimat Glomerular Filtration Rate > 60 BUN/Creatinine Ratio 12 Glucose Level 123 H 70-105 MG/DL Calcium Level 9.6 8.5-10.1 MG/DL Corrected Calcium 9.3 8.5-10.1 MG/DL Total Bilirubin 0.4 0.1-1.0 MG/DL Aspartate Amino Transf (AST/SGOT) 20 5-34 U/L Alanine Aminotransferase (ALT/SGPT) 17 0-55 U/L Alkaline Phosphatase 74 40-136 U/L Total Protein 7.2 6.4-8.2 GM/DL Albumin 4.4 3.2-4.5 GM/DL Glucometer 122 H 70-110 MG/DL Urine Color YELLOW Urine Clarity CLEAR Urine pH 6.0 5-9 Urine Specific [place] >=1.030 1.016-1.022 Urine Protein NEGATIVE NEGATIVE Urine Glucose (UA) TRACE H NEGATIVE Urine Ketones 2+ H NEGATIVE Urine Nitrite NEGATIVE NEGATIVE Urine Bilirubin NEGATIVE NEGATIVE Urine Urobilinogen 0.2 < = 1.0 MG/DL Urine Leukocyte Esterase NEGATIVE NEGATIVE Urine RBC (Auto) 2+ H NEGATIVE Urine RBC 5-10 H /HPF Urine WBC RARE /HPF Urine Squamous Epithelial Cells NONE /HPF Urine Crystals PRESENT H /LPF Urine Calcium Oxalate Crystals RARE H /LPF Urine Bacteria NEGATIVE /HPF Urine Casts PRESENT /LPF Urine Hyaline Casts RARE /LPF Urine Mucus SMALL H /LPF Urine Culture Indicated NO Urine Opiates Screen NEGATIVE NEGATIVE Urine Oxycodone Screen NEGATIVE NEGATIVE Urine Methadone Screen NEGATIVE NEGATIVE Urine Propoxyphene Screen NEGATIVE NEGATIVE Urine Barbiturates Screen NEGATIVE NEGATIVE Ur Tricyclic Antidepressants Screen NEGATIVE NEGATIVE Urine Phencyclidine Screen NEGATIVE NEGATIVE Urine Amphetamines Screen NEGATIVE NEGATIVE Urine Methamphetamines Screen NEGATIVE NEGATIVE Urine Benzodiazepines Screen NEGATIVE NEGATIVE Urine Cocaine Screen NEGATIVE NEGATIVE Urine Cannabinoids Screen POSITIVE H NEGATIVE (LISETH MATTHEWS MD) My Orders Orders - LISETH MATTHEWS MD Ua Culture If Indicated (12/22/19 21:33) Fentanyl Injection (Sublimaze Injection (12/22/19 21:30) Ketorolac Injection (Toradol Injection) (12/22/19 21:30) (LISETH MATTHEWS MD) Medications Given in ED Current Medications Medications Dose Ordered Sig/Frandy Route Start Time Stop Time Status Last Admin Dose Admin Fentanyl Citrate 50 mcg ONCE ONCE IVP 12/22/19 21:45 12/22/19 21:46 DC 12/22/19 21:39 50 MCG Ketorolac Tromethamine 30 mg ONCE ONCE IVP 12/22/19 21:45 12/22/19 21:46 DC 12/22/19 21:39 30 MG (LISETH MATTHEWS MD) Vital Signs/I&O 12/22/19 12/23/19 21:31 01:03 Temp 36.9 36.8 Pulse 64 59 Resp 20 16 B/P (MAP) 174/99 (124) 147/89 (124) Pulse Ox 98 97 O2 Delivery Room Air (LISETH MATTHEWS MD) Diagnostic Imaging Diagonstic Imaging: CT Plain Films/CT/US/NM/MRI: abdomen, pelvis Comments There is abnormality of the right renal collecting system with hyperdense debris of uncertain etiology. Urologic follow-up was recommended. (LISETH MATTHEWS MD) Departure Impression Primary Impression: Right sided abdominal pain Additional Impressions: Nausea and vomiting Qualified Codes: R11.2 - Nausea with vomiting, unspecified Abnormal CT scan Disposition: HOME, SELF-CARE Condition: Stable Departure-Patient Inst. Referrals: CIRILO BEVERLY (PCP) Primary Care Physician Patient Instructions: Acute Abdomen (Belly Pain), Adult (DC) Add. Discharge Instructions: Drink plenty of clear liquids to stay well-hydrated. Use Zofran as prescribed for nausea and vomiting and hydrocodone as prescribed for pain. If you need pain management prior to filling the prescription, you may take Tylenol and/or ibuprofen. Follow-up with your primary care provider as soon as possible. Please call tomorrow morning to schedule the appointment. Please ensure the scheduler conveyor is aware this is an urgent follow-up from the ER. Your primary care office needs to help you make arrangements for a referral to the urologist. Return to care if you have worsening symptoms or if you develop new symptoms such as fever. All discharge instructions reviewed with patient and/or family. Voiced understanding. Scripts Ondansetron (Ondansetron Odt) 4 Mg Tab.rapdis 4 MG SL Q4H PRN for NAUSEA/VOMITING, #10 TAB Prov: LISETH MATTHEWS MD 12/23/19 Hydrocodone/Acetaminophen (Hydrocodone-Acetamin 5-325 mg) 1 Each Tablet 1 EACH PO Q4H PRN for PAIN-MODERATE (5-7), #10 TAB Prov: LISETH MATTHEWS MD 12/23/19 Copy Copies To 1: CHAMP SHARMA PETER J APRN Dec 22, 2019 21:37 LISETH MATTHEWS MD Dec 23, 2019 00:35
[2019-12-22 21:45] LABS: BASOPHILS % (AUTO) 0 % (0-10); EOSINOPHILS # (AUTO) 0.1 10^3/uL (0.0-0.3); EOSINOPHILS % (AUTO) 1 % (0-10); HEMATOCRIT 42 % (40-54); HEMOGLOBIN 14.1 G/DL (13.3-17.7); LYMPHOCYTES # (AUTO) 2.2 X 10^3 (1.0-4.0); LYMPHOCYTES % (AUTO) 19 % (12-44); MEAN CORPUSCULAR HEMOGLOBIN 30 PG (25-34); MEAN CORPUSCULAR HGB CONC 34 G/DL (32-36); MEAN CORPUSCULAR VOLUME 89 FL (80-99); MEAN PLATELET VOLUME 9.7 FL (7.4-10.4); MONOCYTES # (AUTO) 1.4 X 10^3 (0.0-1.0); MONOCYTES % (AUTO) 12 % (0-12); NEUTROPHILS # (AUTO) 7.9 X 10^3 (1.8-7.8); NEUTROPHILS % (AUTO) 68 % (42-75); PLATELET COUNT 277 10^3/uL (130-400); RED CELL DISTRIBUTION WIDTH 14.3 % (10.0-14.5); WHITE BLOOD COUNT 11.5 10^3/uL (4.3-11.0)
[2019-12-22] MEDS ORDERED: fentaNYL INJECTION 100 MCG/2 ML AMP IVP ONE (21:45)
[2019-12-22] MEDS ORDERED: NS IV 1000 ML 1,000 ML IV SCH (21:45)
[2019-12-22] MEDS ORDERED: KETOROLAC 30 MG/ML VIAL IVP ONE (21:45)
[2019-12-22 22:06] LABS: ALANINE AMINOTRANSFERASE 17 U/L (0-55); ALBUMIN 4.4 GM/DL (3.2-4.5); ALKALINE PHOSPHATASE 74 U/L (40-136); BILIRUBIN,TOTAL 0.4 MG/DL (0.1-1.0); BUN/CREATININE RATIO 12; CALCIUM 9.6 MG/DL (8.5-10.1); CARBON DIOXIDE 19 MMOL/L (21-32); CHLORIDE 106 MMOL/L (98-107); GFR ESTIMATED > 60; GLUCOSE 123 MG/DL (70-105); POTASSIUM 3.7 MMOL/L (3.6-5.0); SODIUM 139 MMOL/L (135-145); TOTAL PROTEIN 7.2 GM/DL (6.4-8.2)
[2019-12-23 00:11] LABS: AMPHETAMINE SCREEN, URINE NEGATIVE (NEGATIVE); BARBITURATE SCREEN URINE NEGATIVE (NEGATIVE); BENZODIAZEPINES SCREEN URINE NEGATIVE (NEGATIVE); CANNABINOID SCREEN, URINE POSITIVE (NEGATIVE); COCAINE SCREEN URINE NEGATIVE (NEGATIVE); METHADONE STAT NEGATIVE (NEGATIVE); METHAMPHETAMINE SCREEN URINE S NEGATIVE (NEGATIVE); OPIATE SCREEN URINE NEGATIVE (NEGATIVE); OXYCODONE STAT NEGATIVE (NEGATIVE); PROPOXYPHENE STAT NEGATIVE (NEGATIVE); TRICYCLIC ANTIDEPRESSANTS SCRE NEGATIVE (NEGATIVE)
[2019-12-23 00:12] LABS: CLARITY,URINE CLEAR; COLOR,URINE YELLOW; GLUCOSE, URINE (UA) TRACE (NEGATIVE); KETONES,URINE 2+ (NEGATIVE); PROTEIN,URINE NEGATIVE (NEGATIVE)
[2019-12-23 00:13] LABS: BACTERIA,URINE NEGATIVE /HPF; BILIRUBIN,URINE NEGATIVE (NEGATIVE); CALCIUM OXALATE CRYSTALS,UR RARE /LPF; HYALINE CASTS, URINE RARE /LPF; LEUKOCYTE ESTERASE ,URINE NEGATIVE (NEGATIVE); NITRITE,URINE NEGATIVE (NEGATIVE); WBC,URINE RARE /HPF
[2019-12-23] MEDS ORDERED: HYDR-83 PO (00:37)
[2019-12-23] MEDS ORDERED: ONDA4TAB11 SL (00:37)
[2019-12-23 01:03] VITALS: BP 147/89
--- NOTE | 2019-12-23 07:36 | Diagnostic Imaging Report ---
PROCEDURE: CT urinary tract, rule out kidney stone. TECHNIQUE: Multiple contiguous axial images were obtained through the abdomen and pelvis without the use of intravenous contrast. Auto Exposure Controls were utilized during the CT exam to meet ALARA standards for radiation dose reduction. INDICATION: Right flank pain. COMPARISON: CT pelvis 02/09/2018. FINDINGS: Lung bases are clear. Mildly hyperattenuating mass in the upper renal collecting system measuring 2.6 x 2.3 cm. The left kidney and bilateral ureters are negative. The liver, gallbladder, pancreas and appendix are negative. Stable bilateral diffuse nodular thickening of the adrenal glands. No free intraperitoneal air or fluid. No lymphadenopathy. No evidence of bowel obstruction. Osseous findings. 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 IMPRESSION: 1. Hyperattenuating mass in the upper renal collecting system on the right measuring up to 2.6 cm. Findings are suspicious for a malignancy, less likely hematoma. This could be better evaluated with dedicated multiphase contrast-enhanced CT or MRI. Recommend urology consult. 2. Stable diffuse nodular thickening of the adrenal glands, left greater than right. Dictated by: Dictated on workstation # [id number]
== END 2019-12-23 01:03 | disposition home or self-care (01) ==
LOC: EDUNIT# 21:25 → ER 21:27
DX: N28.9 Disorder of kidney and ureter, unspecified (principal); R10.9 Unspecified abdominal pain; R11.2 Nausea with vomiting, unspecified; E11.9 Type 2 diabetes mellitus without complications; I10 Essential (primary) hypertension; Z79.84 Long term (current) use of oral hypoglycemic drugs; Z79.899 Other long term (current) drug therapy
CPT/HCPCS: 36415; 74176; 80053; 80306; 81000; 82962; 85025; 96361; 96374; 96375

== ENCOUNTER → 2019-12-25 | Outpatient (CLI) | payer OTHER ==
[~2019-12-25] MED LIST changes: +CATHETER FLUSH 10 ML SYR IV PRN; +HOLD METFORMIN - RECEIVED CONTRAST 20 ML VIAL IV SCH; +HYDR-83 PO; +IOHEXOL 350 MG/ML 100 ML (OMNIPAQUE 350) VIAL IV ONE; +NS 100 ML (IVPB) BAG IV ONE; +ONDA4TAB11 SL
--- NOTE | 2019-12-25 17:17 | Diagnostic Imaging Report ---
CLINICAL INDICATION: Follow-up chest, abdomen and pelvis exam. Patient has mass in the right renal pelvis. EXAM: Axial CT scan of the abdomen and pelvis performed with 100 cc of Omnipaque 350 IV contrast. Coronal and sagittal reformatted images were created. Auto Exposure Controls were utilized during the CT exam to meet ALARA standards for radiation dose reduction. COMPARISON: CT scan of the abdomen and pelvis without contrast dated 12/22/2019. FINDINGS: There is mild atelectasis involving both lung bases posteriorly. There is again seen chronic bilateral L5 spondylolysis and grade 1 anterolisthesis of L5 on S1. Stable moderate to severe loss of intervertebral disk height at the L5-S1 level with diffuse disk bulge. There is severe bilateral neural foraminal narrowing and no significant central canal narrowing. There are small spurs involving other areas of the visualized lower thoracic and lumbar spine. The liver, spleen, pancreas, gallbladder, and adrenal glands are stable with no significant interval abnormality. Stable mild thickening of the adrenal glands are noted and were also noted on the comparison CT scan dated 11/14/2016. There is enhancement involving the masslike enlargement of the superior and mid right renal calyces which extends into the right renal pelvis. Hounsfield units on a noncontrast study is 55 and Hounsfield units on the postcontrast sequence of 75. Delayed imaging shows contrast within the mid and lower renal calyces with no contrast filling of the right renal pelvis which correlates to the mass. There is also ill-defined appearance and concern for mass infiltration of the proximal right ureter. There are minimal areas of contrast in the right UPJ region and proximal right ureter. There is no hydronephrosis. The bladder and left kidney are unremarkable. There is no left hydronephrosis. There is no contrast opacification of the renal veins and patency of the renal veins cannot be appropriately evaluated. There is overall delayed enhancement on portal venous phase and slightly prolonged persistent enhancement on the delayed phase involving the right kidney with some sparing of the inferior right renal cortex. Small lymph nodes just to the right renal hilum are again seen. Marker lymph node measures 8 mm x 21 mm seen on series 3, image 32. There is no intra-abdominal free air or free fluid. The bladder is fluid-filled and otherwise unremarkable. Visualized intestines show no significant abnormality. There is no intraabdominal free air or free fluid. Stable chronic changes with possible paralabral cyst involving the right hip/acetabular region. This finding was also noted on the prior CT from 2017 but was more gas-filled on that exam than it is now fluid-filled. IMPRESSION: 1: There is a mass within the right renal collecting system involving the upper to mid right renal calyx which extends into the right renal pelvis and proximal right ureter concerning for uroepithelial cancer. Transitional cell carcinoma may be considered. There is subcentimeter lymph nodes in the right renal hilar region. There is no hydronephrosis and there is some contrast extension past the mass into the distal right ureter. Of note, renal vein and IVC are not completely contrast opacified and cannot be completely evaluated. 2: Left kidney and bladder show no significant abnormality. There is no other genitourinary tract mass seen. 3: Chronic bilateral L5 spondylolysis with grade 1 anterolisthesis. Dictated by: Dictated on workstation # [id number]
== END ==
LOC: RAD 16:07
PROVIDERS: ATTEND Nurse Practitioner Community Health
DX: N28.89 Other specified disorders of kidney and ureter (principal); R10.11 Right upper quadrant pain; M47.816 Spondylosis without myelopathy or radiculopathy, lumbar region; M43.16 Spondylolisthesis, lumbar region
CPT/HCPCS: 74177

== ENCOUNTER 2019-12-28 17:21 | Emergency (ER) | payer OTHER ==
[~2019-12-28] VITALS: Ht 177.8 cm; Wt 68.0 kg
[~2019-12-28 17:21] MED LIST changes: -CATHETER FLUSH 10 ML SYR IV PRN; -HOLD METFORMIN - RECEIVED CONTRAST 20 ML VIAL IV SCH; -IOHEXOL 350 MG/ML 100 ML (OMNIPAQUE 350) VIAL IV ONE; -NS 100 ML (IVPB) BAG IV ONE
--- OUTSIDE RECORDS SUMMARY | 2019-12-28 17:26 | XMS REPORT | Encounter Summary ---
Author Author [facility] Organization [facility] Address Unknown Phone Unavailable Care Team Providers Care Pharmacy Billing Adjudicator Name Role Phone Silke Curry APRN PCP Homero Kimble MD Unavailable Encounter Details Care Team Description Date Type Department Guevara Swanson MD [address] [place] [address] [phone] 12/28/[address] [address] Social History Date Tobacco Use Types Packs/Day Years Used Never Assessed Sex Assigned at Date Recorded Not on file Industry Job Start Date Occupation Not on file Not on file Not on file Travel End Travel History Travel Start No recent travel history available. documented as of this encounter Plan of Treatment Not on filedocumented as of this encounter Visit Diagnoses Not on filedocumented in this encounter
--- OUTSIDE RECORDS SUMMARY | 2019-12-28 17:26 | XMS REPORT | Clinical Summary ---
Author Author [facility] Organization [facility] Address Unknown Phone Unavailable Care Team Providers Care Catcher Helper Name Role Phone Silke Curry APRN PCP Homero Kimble MD Unavailable Source Comments Some departments are not documenting in the electronic medical record. If you d o not see the information that you expected, contact Release of Information in [facility] [employer] Information Management department at [phone] for further assistan ce in locating additional records.[facility] Allergies Not on File Medications Not on file Active Problems Not on file Encounters Care Team Description Date Type Specialty Guevara Swanson MD 12/28/2019 Telephone Oncology Arrived 12/25/2019 Hospital Radiology Encounter Arrived 12/22/2019 Hospital Radiology Encounter from Last 3 Months Social History Date Tobacco Use Types Packs/Day Years Used Never Assessed Sex Assigned at Date Recorded Not on file Industry Job Start Date Occupation Not on file Not on file Not on file Travel End Travel History Travel Start No recent travel history available. Last Filed Vital Signs Not on file Plan of Treatment Health Maintenance Due Date Last Done Comments HEPATITIS C SCREENING 1964 DTAP/TDAP VACCINES (1 - 1975 Tdap) HIV SCREENING 1979 PHYSICAL (COMPREHENSIVE) 1982 EXAM COLORECTAL CANCER 2014 SCREENING SHINGLES RECOMBINANT 2014 VACCINE (1 of 2) INFLUENZA VACCINE 04/27/2020 Procedures Comments Procedure Name Priority Date/Time Associated Diag nosis CT ABD/PEL EXTERNAL Routine 12/25/2019 IMAGING 12:[address] ABD/PEL EXTERNAL Routine 12/22/2019 Diagnosis unknown IMAGING 10:00 PM CDT from Last 3 Months Results * CT ABD/PEL EXTERNAL IMAGING (12/25/2019 12:00 AM CDT) Only the most recent of 2 results within the time period is included. Specimen Narrative Performed At This order has been auto finalized and does not contain a result. from Last 3 Months Insurance Type Payer Benefit Subscriber ID Effective Phone Address Plan / Dates Group HMO CIGBRETT CIGBRETT NON xxxxxxxxxxx 2016-P PPO/EPO resent Advance Directives Patient Crew Dispatcher Explanation Type Date Recorded Advance Directive/DPOA
--- OUTSIDE RECORDS SUMMARY | 2019-12-28 17:26 | XMS REPORT | Encounter Summary ---
Author Author [facility] Organization [facility] Address Unknown Phone Unavailable Care Team Providers Care Neurodiagnostic Tech Name Role Phone Silke Curry APRN PCP Homero Kimble MD Unavailable Encounter Details Care Team Description Date Type Department Arrived 12/25/2019 [facility] [address] [address] Social History Date Tobacco Use Types Packs/Day Years Used Never Assessed Sex Assigned at Date Recorded Not on file Industry Job Start Date Occupation Not on file Not on file Not on file Travel End Travel History Travel Start No recent travel history available. documented as of this encounter Plan of Treatment Not on filedocumented as of this encounter Procedures Comments Procedure Name Priority Date/Time Associated Diag nosis CT ABD/PEL EXTERNAL Routine 12/25/2019 IMAGING 12:00 AM CDT documented in this encounter Results * CT ABD/PEL EXTERNAL IMAGING (12/25/2019 12:00 AM CDT) Specimen Narrative Performed At This order has been auto finalized and does not contain a result. documented in this encounter Visit Diagnoses Not on filedocumented in this encounter
--- OUTSIDE RECORDS SUMMARY | 2019-12-28 17:26 | XMS REPORT | Encounter Summary ---
Author Author [facility] Organization [facility] Address Unknown Phone Unavailable Care Team Providers Care Press Clipper Name Role Phone PCP Unavailable Encounter Details Care Team Description Date Type Department Arrived 12/22/2019 [facility] Encounter Health System [address] [address] Social History Date Tobacco Use Types Packs/Day [...] Associated Diag nosis CT ABD/PEL EXTERNAL Routine 12/22/2019 Diagnosis unknown IMAGING 10:00 PM CDT documented in this encounter Results * CT ABD/PEL EXTERNAL IMAGING (12/22/2019 10:00 PM CDT) Specimen Narrative Performed At This order has been auto finalized and does not contain a result. documented in this encounter Visit Diagnoses Diagnosis Diagnosis unknown Other unknown and unspecified cause of morbidity or mortality documented in this encounter
--- OUTSIDE RECORDS SUMMARY | 2019-12-28 17:27 | XMS REPORT ---
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 Name Role Phone Migration, Doctor Unavailable Unavailable PROBLEMS Type Condition ICD9-CM Code [id number] Code Onset Dates Condition S tatus SNOMED Code Problem Impotence N52.9 Active 626874284 Problem Tobacco abuse counseling Z71.6 Activ e [id number] Problem Sciatica, right side M54.31 Active 23607626 Problem Primary osteoarthritis of right hip M16.11 Active 068448005 Problem Prediabetes R73.09 Active 2787436 Problem Hyperlipidemia, unspecified E78.5 Ac tive 00658553 Problem Establishing care with new doctor, encounter for Z 71.89 Active 996215022 Problem Tobacco abuse Z72.0 Active 578568 05 Problem Hypertension I10 Active 3250592 3 Problem Other chronic pain G89.29 Active 8 [id number] ALLERGIES No Information ENCOUNTERS Encounter Location Date Diagnosis [place] [address] [place] [id number] [place] [address] Feb, Hypertension I10 and Acute p ain of right shoulder M25.511 [place] [address] [place] [id number] [place] [address] Feb, Acute pain of right shoulder M25.511 [place] [address] [place] [id number] [place] [address] January, Onychomycosis B35.1 and Ingr own toenail of right foot L60.0 [place] [address] [place] [id number] [place] [address] Sep, Right hip pain M25.551 and P rediabetes R73.09 [place] [address] [place] [id number] [place] [address] Aug, Right leg pain M79.604 and H ypertension I10 [place] [address] [id number] [address] [place] [address] Jul, [place] [address] [facility] [id number] [address] [place] [address] May, Hypertension I10 and Polyp o f colon, unspecified part of colon, unspecified type K63.5 [place] [address] [facility] [id number] [address] [place] [address] Apr, Positive colorectal cancer s creening using Cologuard test R19.5 [place] [address] [facility] [id number] [address] [place] [address] Apr, [place] [address] [facility] [id number] [address] [place] [address] Feb, [place] [address] [facility] [id number] [address] [place] [address] Feb, Hyperlipidemia, unspecified E78.5 [place] [address] [facility] [id number] [address] [place] [address] Feb, Prediabetes R73.09 ; Hyperte nsion I10 ; Colon cancer screening Z12.11 ; Hyperlipidemia, unspecified E78.5 ; Pain in right hip M25.551 and Viral warts, unspecified type B07.9 [place] [address] [facility] [id number] [address] [place] [address] Dec, Primary osteoarthritis of ri ght hip M16.11 [place] [address] [id number] [address] [place] [address] Nov, Primary osteoarthritis of ri ght hip M16.11 [place] [address] [facility] [id number] [address] [place] [address] Nov, Right leg pain M79.604 and H ypertension I10 [place] [address] [facility] [id number] [address] [place] [address] Oct, [place] [address] [place] [id number] [place] [address] 30 Sep, 2017 Prediabetes R73.09 ; Pre-op exam Z01.818 and Hypertension I10 [place] [address] [facility] [id number] [address] [place] [address] 14 Jul, 2017 Other chronic pain G89.29 an d Pain in right hip M25.551 [place] [address] [place] [id number] [place] [address] 07 Jul, 2017 Elevated lipase R74.8 [place] [address] [place] [id number] [place] [id number] 03 Jul, 2017 [place] [address] [place] [id number] [place] [address] Jun, RUQ abdominal pain R10.11 [place] [address] [place] [id number] [place] [address] Jun, RUQ abdominal pain R10.11 an d Hematuria, unspecified type R31.9 [place] [address] [place] [id number] [place] [address] 17 Jun, 2017 Right hip pain M25.551 [place] [address] [place] [id number] [place] [address] 16 Jun, 2017 Prediabetes R73.03 ; Left fo ot pain M79.672 and Right hip pain M25.551 [facility] [address] [facility] [id number] [address] [place] [address] Nov, Acute non-recurrent maxillar y sinusitis J01.00 [place] [address] [facility] [id number] [address] [place] [address] Nov, Hypertension I10 ; Prediabet es R73.09 and Dyslipidemia 272.4 [place] [address] [facility] [id number] [address] [place] [id number] 08 Nov, 2016 Hypertension I10 ; Prediabet es R73.03 and Colon cancer screening Z12.11 [place] [address] [facility] [id number] [address] [place] [address] Oct, Hypertension I10 [place] [address] [place] [id number] [place] [address] Oct, [place] [address] [place] [id number] [place] [address] May, Strain of triceps tendon, ri t, initial encounter S46.811A and Osteoarthritis of right knee, unspecified osteoarthritis type M17.9 [place] [address] [facility] [id number] [address] [place] [address] Apr, Elbow pain, right M25.521 an d Acute pain of right knee M25.561 [place] [address] [place] [id number] [place] [address] Apr, [facility] [address] [place] [id number] [place] [address] Mar, Right elbow pain M25.521 [place] [id number] [place] [address] Mar, Hypertension I10 and Prediab etes R73.09 [place] [address] [place] [id number] [place] [address] Nov, [place] [address] [place] [id number] [place] [phone] Oct, Sciatica, right side M54.31 ; Establishing care with new doctor, encounter for Z71.89 ; Tobacco abuse Z72.0 ; Tobacco abuse counseling Z71.6 and Essential hypertension I10 [facility] [address] [place] [id number] [place] [phone] Oct, Lumbago M54.5 [place] [address] [facility] [id number] [address] [place] [address] Aug, Prediabetes R73.09 ; Hyperte nsion I10 and Impotence N52.9 [facility] [address] [place] [id number] [place] [address] 08 May, 2015 Ingrowing nail, right great toe 703.0 [facility] [address] [place] [id number] [place] [address] 16 Mar, 2015 Dyslipidemia 272.4 [facility] [address] [place] [id number] [place] [address] 14 Mar, 2015 Prediabetes 790.29 [facility] [address] [place] [id number] [place] [address] 24 Feb, 2015 Prediabetes 790.29 and Impot ence of organic origin 607.84 [facility] [address] [place] [id number] [place] [address] Feb, [facility] [address] [address] Feb, [facility] [address] [address] Dec, Hypertension 401.9 ; Impoten ce due to erectile dysfunction 607.84 and Hyperglycemia 790.29 [facility] [address] [place] [id number] [place] [address] Dec, [facility] [address] [address] Dec, [facility] [address] [place] [id number] [place] [address] Dec, [facility] [address] [place] [id number] [place] [address] Nov, [facility] [address] [place] [id number] [place] [address] Nov, [facility] [address] [place] [id number] [place] [address] Oct, [facility] [address] [place] [id number] [place] [address] Oct, [facility] [address] [id number] [address] [place] [address], [place] [address] Oct, [facility] [address] [id number] [address] [place] [address], [place] [address] Oct, [facility] [address] [id number] [address] [place] [address], [place] [address] Sep, [facility] [address] [id number] [address] [place] [address], [place] [address] Sep, [facility] [address] [id number] [address] [place] [address], [place] [address] Sep, [facility] [address] [id number] [address] [place] [address], [place] [address] Sep, [facility] [address] [id number] [address] [place] [address], [place] [address] Sep, [facility] [address] [id number] [address] [place] [address], [place] [address] Sep, [facility] [address] [id number] [address] [place] [address], [place] [address] Jul, [facility] [address] [id number] [address] [place] [address], [place] [address] Jul, [facility] [address] [id number] [address] [place] [address], [place] [address] Jul, [facility] [address] [id number] [address] [place] [address], [place] [address] Jul, [facility] [address] [id number] [address] [place] [address], [place] [address] Jul, [facility] [address] [id number] [address] [place] [address], [place] [address] Jul, [facility] [address] [id number] [address] [place] [address] Jun, [facility] [address] [id number] [address] [place] [address], [place] [address] Mar, [facility] [address] [id number] [address] [place] [address], [place] [address] Mar, [facility] [address] [id number] [address] [place] [address], [place] [address] Mar, [facility] [address] [id number] [address] [place] [address], [place] [address] Mar, [facility] [address] [id number] [address] [place] [address], [place] [address] Feb, [facility] [address] [id number] [address] [place] [address], [place] [address] Feb, [facility] [address] [id number] [address] [place] [address], [place] [address] Nov, [facility] [address] [id number] [address] [place] [address], [place] [address] Nov, [facility] [address] [id number] [address] [place] [address], [place] [address] May, [facility] [address] [id number] [address] [place] [address], [place] [address] Apr, [facility] [address] [id number] [address] [place] [address], [place] [address] January, [facility] [address] [id number] [address] [place] [address], [place] [address] Oct, [facility] [address] [id number] [address] [place] [address], [place] [address] Sep, [facility] [address] [id number] [address] [place] [address], [place] [address] Sep, [facility] [address] [id number] [address] [place] [address], [place] [address] Sep, [facility] [address] [id number] [address] [place] [address], [place] [address] Jul, [facility] [address] [id number] [address] [place] [address], [place] [address] Jul, [facility] [address] [id number] [address] [place] [address], [place] [address] Mar, [facility] [address] [id number] [address] [place] [address], [place] [address] 13 Sep, 2011 [facility] [address] [id number] [address] [place] [address], [place] [address] Sep, [facility] [address] [id number] [address] [place] [address], [place] [address] Sep, [facility] [address] [id number] [address] [place] [address], [place] [address] Sep, [facility] [address] [id number] [address] [place] [address], [place] [address] 29 Aug, 2010 [facility] [address] [id number] [address] [place] [address], [place] [address] 20 Aug, 2010 [facility] [address] [id number] [address] [place] [address], [place] [address] 16 Aug, 2010 [facility] [address] [id number] [address] [place] [address], [place] [address] 15 Aug, 2010 [facility] [address] [id number] [address] [place] [address], [place] [address] 15 Aug, 2010 [facility] [address] [id number] [address] [place] [address], [place] [address] 02 Aug, 2010 [facility] [address] [id number] [address] [place] [address], [place] [address] Sep, [facility] [address] [id number] [address] [place] [address], [place] [address] Aug, [facility] [address] [id number] [address] [place] [address], [place] [address] Jul, [facility] [address] [id number] [address] [place] [address] Jun, [facility] [address] [facility] [id number] [address] [place] [address] Jun, [facility] [address] [facility] [id number] [address] [place] [address] May, IMMUNIZATIONS No Known Immunizations SOCIAL HISTORY Never Assessed REASON FOR VISIT PLAN OF CARE VITAL SIGNS Height 70 in 2014-04-02 Weight 156.56 lbs 2014-04-02 Temperature 97.9 degrees Fahrenheit 2014-04-02 Heart Rate 70 bpm 2014-04-02 Respiratory Rate 18 2014-04-02 Blood pressure systolic 142 mmHg 2014-04-02 Blood pressure diastolic 98 mmHg 2014-04-02 MEDICATIONS Unknown Medications RESULTS No Results PROCEDURES Procedure Date Ordered Result Body Site REMOVAL OF NAIL PLATE April 02, 2014 INSTRUCTIONS MEDICATIONS ADMINISTERED No Known Medications MEDICAL (GENERAL) HISTORY Type Description Date Medical History hypertension dx: 2008 Medical History hyperlipidemia Medical History prediabetes Surgical History Colonoscopy with polyps. FU in 1 year
--- OUTSIDE RECORDS SUMMARY | 2019-12-28 17:27 | XMS REPORT ---
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 (no code) kg 09-07-[address] [facility] 17:20-[address] [place] [address] ([id number]) Weight 69.4 kg (no code) kg 06-06-[address] [facility] 17:20-[address] [place] [address] ([id number]) Weight 71.67 kg (no code) kg 03-02-[address] [facility] 16:20-[address] [place] [address] ([id number]) Weight 71.08 kg (no code) kg 11-29-[address] [facility] 11:20-[address] [place] [address] ([id number]) Weight 67.36 kg (no code) kg 10-26-2017 ANDREY HUERTER C ommunity 16:00-0500 91206 [facility] ([id number]) Interventions No Information Plan of Treatment Normalized Care Care Detail Care Activity Date Care Provider F acility Activity (CHM) Chronic Health [facility] 10-19-2018 PAULINA Hogan [id number] [facility] ([id number]) Goals No Information Social History No Information Functional Status The data below is from unstructured sourcesNo functional status results.No functional status results.No functional status results.No functional status information available.No functional status information available.No functional status information available.No functional status inf ormation available.No functional status information available.No functional stat us information available. Mental Status No Information Encounters Encounter Normalized Encounter Encounter Diagnosis Care Provi donna Organization Date Type 03-22-2019 (ACUTE) Acute Visit Pain in right shoulder PAULINA MAC (no [facility] - phone) (no phone) 03-22-2019 - 03-22-2019 12-22-2019 Emergency department no information LISETH LUNA [facility] [address] - patient visit (no phone) [facility] 12-22-2019 (no phone) 07-14-2017 Emergency department no information DR[facility] CO[facility] [address] - patient visit (no phone) [facility] 07-14-2017 (no phone) 03-13-2012 Emergency department no information no name (no angelica ne) no organization name - patient visit (no phone) 03-13-2012 06-06-2018 Patient encounter no information no name (no phone) no organization name (no phone) 06-06-2018 Patient encounter no information no name (no phone) no organization name - (no phone) 06-06-2018 06-01-2018 Patient encounter no information BRIANA sharpe no organization name - (no phone) 06-01-2018 05-31-2018 Patient encounter no information no name (no phone) no organization name (no phone) 03-08-2018 Patient encounter no information no name (no phone) no organization name (no phone) NEGATED Patient encounter no information no name (no phone) no organization name 03-02-2018 (no phone) 02-09-2018 Patient encounter no information no name (no phone) no organization name (no phone) 01-27-2018 Patient encounter no information no name (no phone) no organization name - (no phone) 02-02-2018 01-25-2018 Patient encounter no information no name (no phone) no organization name (no phone) 01-21-2018 Patient encounter no information no name (no phone) no organization name (no phone) 01-20-2018 Patient encounter no information no name (no phone) no organization name (no phone) 01-11-2018 Patient encounter no information no name (no phone) no organization name (no phone) 01-05-2018 Patient encounter no information no name (no phone) no organization name (no phone) 01-03-2018 Patient encounter no information no name (no phone) no organization name (no phone) 11-29-2017 Patient encounter no information no name (no phone) no organization name (no phone) 11-08-2017 Patient encounter no information no name (no phone) no organization name - (no phone) 11-08-2017 11-03-2017 Patient encounter no information no name (no phone) no organization name (no phone) 10-26-2017 Patient encounter no information no name (no phone) no organization name (no phone) 08-10-2017 Patient encounter no information no name (no phone) no organization name (no phone) 07-15-2017 Patient encounter no information no name (no phone) no organization name (no phone) 12-25-2019 Patient encounter no information PAULINA TEIXEIRA P [facility] [address] procedure (no phone) [facility] (no phone) 12-25-2019 Patient encounter no information [facility] MOE ( [facility] (no phone) 12-22-2019 Patient encounter no information LISETH TOBIN NN [facility] [address] procedure (no phone) [facility] (no phone) 05-04-2019 Patient encounter no information no name (no phone) no organization name procedure (no phone) 03-24-2019 Patient encounter no information no name (no phone) no organization name procedure (no phone) 03-24-2019 Patient encounter no information 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 [facility] [address] - procedure (no phone) [facility] 05-03-2019 (no phone) 03-22-2019 Patient encounter no information no name (no phone) no organization name procedure (no phone) 03-01-2019 Patient encounter no information no name (no phone) no organization name procedure (no phone) 03-01-2019 Patient encounter no information no name (no phone) no organization name procedure (no phone) 02-28-2019 Patient encounter no information no name (no phone) no organization name procedure (no phone) 02-22-2019 Patient encounter no information no name (no phone) no organization name procedure (no phone) 02-16-2019 Patient encounter no information no name (no phone) no organization name procedure (no phone) 02-13-2019 Patient encounter no information no name (no phone) no organization name procedure (no phone) 02-10-2019 Patient encounter no information no name (no phone) no organization name procedure (no phone) 02-06-2019 Patient encounter no information no name (no phone) no organization name procedure (no phone) 02-03-2019 Patient encounter no information no name (no phone) no organization name procedure (no phone) 02-01-2019 Patient encounter no information no name (no phone) no organization name procedure (no phone) 01-31-2019 Patient encounter no information no name (no phone) no organization name procedure (no phone) 01-30-2019 Patient encounter no information no name (no phone) no organization name procedure (no phone) 10-19-2018 Patient encounter no information no name (no phone) no organization name procedure (no phone) 09-07-2018 Patient encounter no information no name (no phone) no organization name procedure (no phone) 06-06-2018 Patient encounter no information BRIANA Faustin [facility] [address] - procedure (no phone) [facility] 06-06-2018 (no phone) 06-01-2018 Patient encounter no information BRIANA Faustin [facility] [address] - procedure (no phone) [facility] 06-01-2018 (no phone) 02-09-2018 Patient encounter no information LESVIA Faustin [facility] [address] procedure (no phone) [facility] (no phone) 01-27-2018 Patient encounter no information MARCIE D HARDEN [employer]PERATOR (no [facility] [address] - procedure phone) [facility] 02-02-2018 (no phone) 11-08-2017 Patient encounter no information PHILLY FERNÁNDEZ DPM (no [facility] [address] - procedure phone) [facility] 11-08-2017 (no phone) 07-15-2017 Patient encounter no information PAULINA TEIXEIRA P [facility] [address] procedure (no phone) [facility] g (no phone) 03-22-2019 Telephone encounter Essential (primary) PAULINA GRUBBS (no [facility] - hypertension phone) (no phone) 03-22-2019 - 03-22-2019 12-22-2019 no information Encounter for other no name (no phon e) no organization name preprocedural (no phone) examination Medical Equipment No Information Payers No Information History general Narrative - Reported Note Type Note Facility History general Narrative - Reported Type Medical hypertension dx: 2009 History Medical hyperlipidemia History Medical prediabetes History Surgical Colonoscopy with polyps. FU in 1 year 05/2018 History [facility] ([id number]) Summary Purpose eClinicalWorks SubmissioneClinicalWorks SubmissioneClinicalWorks SubmissioneClinicalWorks SubmissioneClinicalWorks SubmissioneClinicalWorks Submission Advance Directives Directive Response Recor ded Date/Time Advance Directives No 8:21am Resuscitation Status Full Code 10/24/15 8:21am Directive Response Recor ded Date/Time Advance Directives No 9:05pm Resuscitation Status Full Code 07/14/17 9:05pm Directive Response Recor ded Date/Time Advance Directives No 6:05am Resuscitation Status Full Code 11/08/17 6:05am Directive Response Recor ded Date/Time Advance Directives No 3:16pm Resuscitation Status Full Code 06/01/18 3:16pm Discharge Instructions No hospital discharge instructions.No hospital discharge instructions.No hospital discharge instruction information available.No hospital discharge instruction information available.No hospital discharge instruction information available. Additional Source Comments This clinical document has been generated using [employer] software that has been certified by the Office of the National Coordinator for Health Information Technology (ONC 15.99.04.3023.Diam.31.00.0.806037) and the National Committee for Animal [employer] (NCQA, as an eMeasure certified technology). FOR RECORDS PERTAINING TO PATIENTS WHO ARE OR HAVE BEEN ENROLLED IN A CHEMICAL D EPENDENCY/SUBSTANCE ABUSE PROGRAM, SOME INFORMATION MAY BE OMITTED. This clinica l summary was aggregated from multiple sources. Caution should be exercised in using it in the provision of clinical care. This summary normalizes information from multiple sources, and as a consequence, information in this document may ma terially change the coding, format and clinical context of patient data. In shayy tion, data may be omitted in some cases. CLINICAL DECISIONS SHOULD BE BASED ON T HE PRIMARY CLINICAL RECORDS. [employer] provides no warranty or guara ntee of the accuracy or completeness of information in this document.The followi ng information is based on time limited clinical information UNRECOGNIZED CONTENT PROVIDED BELOW FOR UNRECOGNIZED SECTION MEDICAL (GENERAL) HISTORY Type Description Date Medical History hypertension dx: 2009 Medical History hyperlipidemia Medical History prediabetes Type Description Date Medical History hypertension dx: 2009 Medical History hyperlipidemia Medical History prediabetes Surgical History No Surgical history information Type Description Date Medical History hypertension dx: 2009 Medical History hyperlipidemia Medical History prediabetes Surgical History Colonoscopy with po lyps. FU in 1 year 05/2018 UNRECOGNIZED CONTENT PROVIDED BELOW FOR UNRECOGNIZED SECTION REASON FOR VISIT Lab resultsCologuard ResultsBlood Pressure- AB/MAMedication refill requestf/u Pt in for follow up Beth HahnMig
--- OUTSIDE RECORDS SUMMARY | 2019-12-28 17:27 | XMS REPORT ---
Author Author Jarod SHARMA [facility] Address [address] [place] [address] Care Team Providers Care Edge Banding Off Bearer Name Role Phone CHAMP SHARMA Unavailable PROBLEMS Type Condition ICD9-CM Code OOB93-SD Code Onset Dates Condition S tatus SNOMED Code Problem Impotence N52.9 Active 146907675 Problem Tobacco abuse counseling Z71.6 Activ e 140671960 Problem Sciatica, right side M54.31 Active 33477281 Problem Primary osteoarthritis of right hip M16.11 Active 622493457 Problem Prediabetes R73.09 Active 9395378 Problem Hyperlipidemia, unspecified E78.5 Ac tive 25990404 Problem Establishing care with new doctor, encounter for Z 71.89 Active 921506991 Problem Tobacco abuse Z72.0 Active 639341 05 Problem Hypertension I10 Active 8291920 3 Problem Other chronic pain G89.29 Active 8 [id number] ALLERGIES No Information ENCOUNTERS Encounter Location Date Diagnosis [address] [address] Feb, Hypertension I10 and Acute pain of right shoulder M25.[address] [address] Feb, Acute pain of right shoulder M25.[address] [address] January, Onychomycosis B35.1 and Ingrown toenail of right foot L60.[address] [address] Sep, Right hip pain M25.551 and Prediabetes R 73.[address] [address] Aug, Right leg pain M79.604 and Hypertension I10 [place] [address] [address] Jul, [place] [address] [address] May, Hypertension I10 and Polyp of colon, uns pecified part of colon, unspecified type K63.5 [place] [address] [address] Apr, Positive colorectal cancer screening usi ng Cologuard test R19.5 [place] [address] [address] Apr, [place] [address] [address] Feb, [place] [address] [address] Feb, Hyperlipidemia, unspecified E78.5 [place] [address] [address] Feb, Prediabetes R73.09 ; Hypertension I10 ; Colon cancer screening Z12.11 ; Hyperlipidemia, unspecified E78.5 ; Pain in right hip M25.551 and Viral warts, unspecified type B07.9 [place] [address] [address] Dec, Primary osteoarthritis of right hip M16. 11 [place] [address] [address] Nov, Primary osteoarthritis of right hip M16. 11 [place] [address] [address] Nov, Right leg pain M79.604 and Hypertension I10 [place] [address] [address] Oct, [place] [address] [address] 30 Luis, 2018 Prediabetes R73.09 ; Pre-op exam Z01.818 and Hypertension I10 [place] [address] [address] 14 Jul, 2017 Other chronic pain G89.29 and Pain in ri ght hip M25.551 [place] [address] [address] 07 Jul, 2017 Elevated lipase R74.8 [place] [address] [address] 03 Jul, 2017 [place] [address] [address] Jun, RUQ abdominal pain R10.11 [place] [address] [address] Jun, RUQ abdominal pain R10.11 and Hematuria, unspecified type R31.9 [place] [address] [address] 17 Jun, 2017 Right hip pain M25.551 [place] [address] [address] 16 Jun, 2017 Prediabetes R73.03 ; Left foot pain M79. 672 and Right hip pain M25.551 [facility] WALK IN [facility] [address] [facility] [id number] [address] [place] [address] Nov, Acute non-recurrent maxillar y sinusitis J01.00 [place] [address] [address] Nov, Hypertension I10 ; Prediabetes R73.09 an d Dyslipidemia 272.4 [place] [address] [address] Nov, Hypertension I10 ; Prediabetes R73.03 an d Colon cancer screening Z12.11 [place] [address] [address] Oct, Hypertension I10 [place] [address] [address] Oct, [facility] [address] [address] May, Strain of triceps tendon, right, initial encounter S46.811A and Osteoarthritis of right knee, unspecified osteoarthritis type M17.9 [facility] [address] [address] Apr, Elbow pain, right M25.521 and Acute pain of right knee M25.561 [place] [address] [address] Apr, [facility] WALK IN [facility] [address] [facility] [id number] [place] [address] Mar, Right elbow pain M25.521 [place] [address] [address] Mar, Hypertension I10 and Prediabetes R73.09 [place] [address] [address] Nov, [place] [address] [address] Oct, Sciatica, right side M54.31 ; Establishi care with new doctor, encounter for Z71.89 ; Tobacco abuse Z72.0 ; Tobacco abuse counseling Z71.6 and Essential hypertension I10 [facility] W[facility] CARE [address] [facility] [id number] [place] [address] Oct, Lumbago M54.5 [place] [address] [address] Aug, Prediabetes R73.09 ; Hypertension I10 an d Impotence N52.9 [place] [address] [address] 08 May, 2015 Ingrowing nail, right great toe 703.0 [place] [address] [address] Mar, Dyslipidemia 272.4 [facility] [address] [place] [id number] [place] [address] Mar, Prediabetes 790.29 [facility] [address] [place] [address] [id number] [place] [address] 24 Feb, 2015 Prediabetes 790.29 and Impotence of orga juan origin 607.84 [facility] [address] [address] Feb, [facility] [address] [address] Feb, [facility] [address] [address] Dec, Hypertension 401.9 ; Impotence due to er ectile dysfunction 607.[address] [facility] [id number] [place] [address] Dec, [facility] [address] [address] Dec, [facility] [address] [address] Dec, [facility] [address] [address] Nov, [facility] [address] [address] Nov, [facility] [address] [id number] [place] [address] Oct, [facility] [address] [address] Oct, [facility] [address] [address] [id number] [place] [address] Oct, [facility] [address] [address] Oct, [facility] [address] [place] [address] [place] [address] Sep, [facility] [address] [facility] [id number] [place] [address] Sep, [facility] [address] [id number] [place] [address] Sep, [facility] [address] [id number] [place] [address] Sep, [facility] [address] [id number] [place] [address] Sep, [facility] [address] [id number] [place] [address] Sep, [facility] [address] [id number] [place] [address] Jul, [facility] [address] [id number] [place] [address] Jul, [facility] [address] [id number] [place] [address] Jul, [facility] [address] [id number] [place] [address] Jul, [facility] [address] [id number] [place] [address] Jul, [facility] [address] [id number] [place] [address] Jul, [facility] [address] [id number] [place] [address] Jun, [facility] [address] [id number] [place] [address] Mar, [facility] [address] [id number] [place] [address] Mar, [facility] [address] [id number] [place] [address] Mar, [facility] [address] [id number] [place] [address] Mar, [facility] [address] [id number] [place] [address] Feb, [facility] [address] [id number] [place] [address] Feb, [facility] [address] [id number] [place] [address] Nov, [facility] [address] [id number] [place] [address] Nov, [facility] [address] [id number] [place] [address] May, [facility] [address] [id number] [place] [address] Apr, [facility] [address] [id number] [place] [address] January, [facility] [address] [id number] [place] [address] Oct, [facility] [address] [id number] [place] [address] Sep, [facility] [address] [id number] [place] [address] Sep, [facility] [address] [id number] [place] [address] Sep, [facility] [address] [id number] [place] [address] Jul, [facility] [address] [id number] [place] [address] Jul, [facility] [address] [id number] [place] [address] Mar, [facility] [address] [id number] [place] [address] Sep, [facility] [address] [id number] [place] [address] Sep, [facility] [address] [id number] [place] [address] Sep, [facility] [address] [id number] [place] [address] Sep, [facility] [address] [place] [id number] [place] [address] Aug, [facility] [address] [place] [id number] [place] [address] Aug, [facility] [address] [place] [id number] [place] [address] Aug, [facility] [address] [place] [id number] [place] [address] Aug, [facility] [address] [place] [id number] [place] [address] Aug, [facility] [address] [place] [id number] [place] [address] Aug, [facility] [address] [place] [id number] [place] [address] Sep, [facility] [address] [place] [id number] [place] [address] Aug, [facility] [address] [place] [id number] [place] [address] Jul, [facility] [address] [place] [id number] [place] [address] Jun, [facility] [address] [place] [address] [id number] [place] [address] Jun, [facility] [address] [place] [id number] [place] [address] May, IMMUNIZATIONS No Known Immunizations SOCIAL HISTORY Never Assessed REASON FOR VISIT PLAN OF CARE VITAL SIGNS Height 70 in 2014-03-26 Weight 153.06 lbs 2014-03-26 Temperature 979.9 degrees Fahrenheit 2014-03-26 Heart Rate 70 bpm 2014-03-26 Respiratory Rate 18 2014-03-26 Blood pressure systolic 146 mmHg 2014-03-26 Blood pressure diastolic 98 mmHg 2014-03-26 MEDICATIONS Unknown Medications RESULTS No Results PROCEDURES Procedure Date Ordered Result Body Site COMPLETE CBC W/AUTO DIFF WBC March 26, 2014 GLYCATED HEMOGLOBIN TEST March 26, 2014 COMPREHEN METABOLIC PANEL March 26, 2014 VENIPUNCT, ROUTINE* March 26, 2014 INSTRUCTIONS MEDICATIONS ADMINISTERED No Known Medications MEDICAL (GENERAL) HISTORY Type Description Date Medical History hypertension dx: 2008 Medical History hyperlipidemia Medical History prediabetes Surgical History Colonoscopy with polyps. FU in 1 year
--- OUTSIDE RECORDS SUMMARY | 2019-12-28 17:27 | XMS REPORT ---
Author Author Jarod SHARMA [facility] Address [address] [place] [address] Care Team Providers Care Refractory Technician Name Role Phone CHAMP SHARMA Unavailable PROBLEMS Type Condition ICD9-CM Code JMM85-ME Code Onset Dates Condition S tatus SNOMED Code Problem Impotence N52.9 Active 018735642 Problem Tobacco abuse counseling Z71.6 Activ e 599594782 Problem Sciatica, right side M54.31 Active 61876654 Problem Primary osteoarthritis of right hip M16.11 Active 210104472 Problem Prediabetes R73.09 Active 7693668 Problem Hyperlipidemia, unspecified E78.5 Ac tive 10506112 Problem Establishing care with new doctor, encounter for Z 71.89 Active 478843182 Problem Tobacco abuse Z72.0 Active 403363 05 Problem Hypertension I10 Active 0132758 3 Problem Other chronic pain G89.29 Active 8 [id number] ALLERGIES No Information ENCOUNTERS Encounter Location Date Diagnosis [address] [address] Feb, Hypertension I10 and Acute pain of right shoulder M25.[address] [address] Feb, Acute pain of right shoulder M25.[address] [address] January, Onychomycosis B35.1 and Ingrown toenail of right foot L60.[address] [address] Sep, Right hip pain M25.551 and Prediabetes R 73.[address] [address] Aug, Right leg pain M79.604 and Hypertension I10 [place] [address] [address] Jul, [place] [address] [address] May, Hypertension I10 and Polyp of colon, uns pecified part of colon, unspecified type K63.5 [place] [address] [address] Apr, Positive colorectal cancer screening usi ng Cologuard test R19.5 [place] [address] [address] Apr, [place] [address] [address] Feb, [place] [address] [address] Feb, Hyperlipidemia, unspecified E78.5 [place] [address] [address] Feb, Prediabetes R73.09 ; Hypertension I10 ; Colon cancer screening Z12.11 ; Hyperlipidemia, unspecified E78.5 ; Pain in right hip M25.551 and Viral warts, unspecified type B07.9 [place] [address] [address] Dec, Primary osteoarthritis of right hip M16. 11 [place] [address] [address] Nov, Primary osteoarthritis of right hip M16. 11 [place] [address] [address] Nov, Right leg pain M79.604 and Hypertension I10 [place] [address] [address] Oct, [place] [address] [address] 30 Luis, 2018 Prediabetes R73.09 ; Pre-op exam Z01.818 and Hypertension I10 [place] [address] [address] 14 Jul, 2017 Other chronic pain G89.29 and Pain in ri ght hip M25.551 [place] [address] [address] 07 Jul, 2017 Elevated lipase R74.8 [place] [address] [address] 03 Jul, 2017 [place] [address] [address] Jun, RUQ abdominal pain R10.11 [place] [address] [address] Jun, RUQ abdominal pain R10.11 and Hematuria, unspecified type R31.9 [place] [address] [address] 17 Jun, 2017 Right hip pain M25.551 [place] [address] [address] 16 Jun, 2017 Prediabetes R73.03 ; Left foot pain M79. 672 and Right hip pain M25.551 [facility] WALK IN [facility] [address] [facility] [id number] [address] [place] [address] Nov, Acute non-recurrent maxillar y sinusitis J01.00 [place] [address] [address] Nov, Hypertension I10 ; Prediabetes R73.09 an d Dyslipidemia 272.4 [place] [address] [address] Nov, Hypertension I10 ; Prediabetes R73.03 an d Colon cancer screening Z12.11 [place] [address] [address] Oct, Hypertension I10 [place] [address] [address] Oct, [facility] [place] [address] [address] May, Strain of triceps tendon, right, initial encounter S46.811A and Osteoarthritis of right knee, unspecified osteoarthritis type M17.9 [facility] [place] [address] [address] Apr, Elbow pain, right M25.521 and Acute pain of right knee M25.561 [place] [address] [address] Apr, [facility] WALK IN [facility] [address] [facility] [facility] [id number] [place] [address] Mar, Right elbow pain M25.521 [place] [address] [address] Mar, Hypertension I10 and Prediabetes R73.09 [place] [address] [address] Nov, [place] [address] [address] Oct, Sciatica, right side M54.31 ; Establishi care with new doctor, encounter for Z71.89 ; Tobacco abuse Z72.0 ; Tobacco abuse counseling Z71.6 and Essential hypertension I10 [facility] WALK IN CARE [address] [facility] [id number] [place] [address] Oct, Lumbago M54.5 [place] [address] [address] Aug, Prediabetes R73.09 ; Hypertension I10 an d Impotence N52.9 [place] [address] [address] 08 May, 2015 Ingrowing nail, right great toe 703.0 [place] [address] [address] Mar, Dyslipidemia 272.4 [facility] [place] [id number] [place] [address] Mar, Prediabetes 790.29 [facility] [place] [id number] [place] [address] 24 Feb, 2015 Prediabetes 790.29 and Impotence of orga juan origin 607.84 [facility] [place] [address] [address] Feb, [facility] [place] [address] [address] Feb, [facility] [place] [address] [address] Dec, Hypertension 401.9 ; Impotence due to er ectile dysfunction 607.84 and Hyperglycemia 790.29 [facility] [place] [id number] [place] [address] Dec, [facility] [place] [address] [address] Dec, [facility] [place] [address] [address] Dec, [facility] [place] [address] [address] Nov, [facility] [place] [address] [address] Nov, [facility] [place] [id number] [place] [address] Oct, [facility] [place] [address] [address] Oct, [facility] [place] [id number] [place] [address] Oct, [facility] [place] [address] [address] Oct, [facility] [place] [address] [place] [address] Sep, [facility] [address] [facility] [id number] [place] [address] Sep, [facility] [address] [id number] [place] [address] Sep, [facility] [address] [id number] [place] [address] Sep, [facility] [address] [id number] [place] [address] Sep, [facility] [address] [id number] [place] [address] Sep, [facility] [address] [id number] [place] [address] Jul, [facility] [address] [id number] [place] [address] Jul, [facility] [address] [id number] [place] [address] Jul, [facility] [address] [id number] [place] [address] Jul, [facility] [address] [id number] [place] [address] Jul, [facility] [address] [id number] [place] [address] Jul, [facility] [address] [id number] [place] [address] Jun, [facility] [address] [id number] [place] [address] Mar, [facility] [address] [id number] [place] [address] Mar, [facility] [address] [id number] [place] [address] Mar, [facility] [address] [id number] [place] [address] Mar, [facility] [address] [id number] [place] [address] Feb, [facility] [address] [id number] [place] [address] Feb, [facility] [address] [id number] [place] [address] Nov, [facility] [address] [id number] [place] [address] Nov, [facility] [address] [id number] [place] [address] May, [facility] [address] [id number] [place] [address] Apr, [facility] [address] [id number] [place] [address] January, [facility] [address] [id number] [place] [address] Oct, [facility] [address] [id number] [place] [address] Sep, [facility] [address] [id number] [place] [address] Sep, [facility] [address] [id number] [place] [address] Sep, [facility] [address] [id number] [place] [address] Jul, [facility] [address] [id number] [place] [address] Jul, [facility] [address] [id number] [place] [address] Mar, [facility] [address] [id number] [place] [address] Sep, [facility] [address] [id number] [place] [address] Sep, [facility] [address] [id number] [place] [address] Sep, [facility] [place] [address] [id number] [place] [address] Sep, [facility] [place] [address] [id number] [place] [address] Aug, [facility] [place] [address] [id number] [place] [address] Aug, [facility] [place] [address] [id number] [place] [address] Aug, [facility] [place] [address] [id number] [place] [address] Aug, [facility] [place] [id number] [place] [address] Aug, [facility] [place] [address] [id number] [place] [address] Aug, [facility] [place] [id number] [place] [address] Sep, [facility] [place] [address] [id number] [place] [address] Aug, [facility] [place] [id number] [place] [address] Jul, [facility] [place] [address] [id number] [place] [address] Jun, [facility] [place] [id number] [place] [address] Jun, [facility] [place] [address] [id number] [place] [address] May, IMMUNIZATIONS No Known Immunizations SOCIAL HISTORY Never Assessed REASON FOR VISIT PLAN OF CARE VITAL SIGNS MEDICATIONS Unknown Medications RESULTS No Results PROCEDURES No Known procedures INSTRUCTIONS MEDICATIONS ADMINISTERED No Known Medications MEDICAL (GENERAL) HISTORY Type Description Date Medical History hypertension dx: 2008 Medical History hyperlipidemia Medical History prediabetes Surgical History Colonoscopy with polyps. FU in 1 year
--- OUTSIDE RECORDS SUMMARY | 2019-12-28 17:27 | XMS REPORT ---
Author Author Jarod SHARMA [facility] Address [address] [place] [address] Care Team Providers Care Disability Insurance Hearing Officer Name Role Phone CHAMP SHARMA Unavailable PROBLEMS Type Condition ICD9-CM Code MPI24-LY Code Onset Dates Condition S tatus SNOMED Code Problem Impotence N52.9 Active 660091270 Problem Tobacco abuse counseling Z71.6 Activ e 675990553 Problem Sciatica, right side M54.31 Active 92622621 Problem Primary osteoarthritis of right hip M16.11 Active 441510021 Problem Prediabetes R73.09 Active 2288252 Problem Hyperlipidemia, unspecified E78.5 Ac tive 09771996 Problem Establishing care with new doctor, encounter for Z 71.89 Active 315770076 Problem Tobacco abuse Z72.0 Active 564478 05 Problem Hypertension I10 Active 8718037 3 Problem Other chronic pain G89.29 Active 8 [id number] ALLERGIES No Information ENCOUNTERS Encounter Location Date Diagnosis [address] [address] Feb, Hypertension I10 and Acute pain of right shoulder M25.[address] [address] Feb, Acute pain of right shoulder M25.[address] [address] January, Onychomycosis B35.1 and Ingrown toenail of right foot L60.[address] [address] Sep, Right hip pain M25.551 and Prediabetes R 73.[address] [address] Aug, Right leg pain M79.604 and Hypertension I10 [place] [address] [address] Jul, [place] [address] [address] May, Hypertension I10 and Polyp of colon, uns pecified part of colon, unspecified type K63.5 [place] [address] [address] Apr, Positive colorectal cancer screening usi ng Cologuard test R19.5 [place] [address] [address] Apr, [place] [address] [address] Feb, [place] [address] [address] Feb, Hyperlipidemia, unspecified E78.5 [place] [address] [address] Feb, Prediabetes R73.09 ; Hypertension I10 ; Colon cancer screening Z12.11 ; Hyperlipidemia, unspecified E78.5 ; Pain in right hip M25.551 and Viral warts, unspecified type B07.9 [place] [address] [address] Dec, Primary osteoarthritis of right hip M16. 11 [place] [address] [address] Nov, Primary osteoarthritis of right hip M16. 11 [place] [address] [address] Nov, Right leg pain M79.604 and Hypertension I10 [place] [address] [address] Oct, [place] [address] [address] 30 Luis, 2018 Prediabetes R73.09 ; Pre-op exam Z01.818 and Hypertension I10 [place] [address] [address] 14 Jul, 2017 Other chronic pain G89.29 and Pain in ri ght hip M25.551 [place] [address] [address] 07 Jul, 2017 Elevated lipase R74.8 [place] [address] [address] 03 Jul, 2017 [place] [address] [address] Jun, RUQ abdominal pain R10.11 [place] [address] [address] Jun, RUQ abdominal pain R10.11 and Hematuria, unspecified type R31.9 [place] [address] [address] 17 Jun, 2017 Right hip pain M25.551 [place] [address] [address] 16 Jun, 2017 Prediabetes R73.03 ; Left foot pain M79. 672 and Right hip pain M25.551 [facility] [address] [facility] [id number] [address] [place] [address] Nov, Acute non-recurrent maxillar y sinusitis J01.00 [place] [address] [address] Nov, Hypertension I10 ; Prediabetes R73.09 an d Dyslipidemia 272.4 [place] [address] [address] Nov, Hypertension I10 ; Prediabetes R73.03 an d Colon cancer screening Z12.11 [place] [address] [address] Oct, Hypertension I10 [place] [address] [address] Oct, [facility] [place] [address] [address] May, Strain of triceps tendon, right, initial encounter S46.811A and Osteoarthritis of right knee, unspecified osteoarthritis type M17.9 [facility] [place] [address] [address] Apr, Elbow pain, right M25.521 and Acute pain of right knee M25.561 [place] [address] [address] Apr, [facility] [address] [facility] [id number] [address], [place] [address] Mar, Right elbow pain M25.521 [place] [address] [address] Mar, Hypertension I10 and Prediabetes R73.09 [place] [address] [address] Nov, [place] [address] [address] Oct, Sciatica, right side M54.31 ; Establishi care with new doctor, encounter for Z71.89 ; Tobacco abuse Z72.0 ; Tobacco abuse counseling Z71.6 and Essential hypertension I10 [facility] [address] [facility] [id number] [address] [address] Oct, Lumbago M54.5 [place] [address] [address] Aug, Prediabetes R73.09 ; Hypertension I10 an d Impotence N52.9 [place] [address] [address] 08 May, 2015 Ingrowing nail, right great toe 703.0 [place] [address] [address] Mar, Dyslipidemia 272.4 [facility] [place] [address] [place] [id number] [place] [address] Mar, Prediabetes 790.29 [facility] [place] [address] [place] [id number] [place] [address] 24 Feb, 2015 Prediabetes 790.29 and Impotence of orga juan origin 607.84 [facility] [place] [address] [address] Feb, [facility] [place] [address] [address] Feb, [facility] [place] [address] [address] Dec, Hypertension 401.9 ; Impotence due to er ectile dysfunction 607.84 and Hyperglycemia 790.29 [facility] [place] [address] [place] [id number] [place] [address] Dec, [facility] [place] [address] [address] Dec, [facility] [place] [address] [address] Dec, [facility] [place] [address] [address] Nov, [facility] [place] [address] [address] Nov, [facility] [place] [address] [place] [id number] [place] [address] Oct, [facility] [place] [address] [address] Oct, [facility] [place] [address] [place] [id number] [place] [address] Oct, [facility] [place] [address] [address] Oct, [facility] [place] [address] [place] [address] [place] [address] Sep, [facility] [address] [facility] [id number] [place] [address] Sep, [facility] [address] [id number] [place] [address] Sep, [facility] [address] [id number] [place] [address] Sep, [facility] [address] [id number] [place] [address] Sep, [facility] [address] [id number] [place] [address] Sep, [facility] [address] [id number] [place] [address] Jul, [facility] [address] [id number] [place] [address] Jul, [facility] [address] [id number] [place] [address] Jul, [facility] [address] [id number] [place] [address] Jul, [facility] [address] [id number] [place] [address] Jul, [facility] [address] [id number] [place] [address] Jul, [facility] [address] [id number] [place] [address] Jun, [facility] [address] [id number] [place] [address] Mar, [facility] [address] [id number] [place] [address] Mar, [facility] [address] [id number] [place] [address] Mar, [facility] [address] [id number] [place] [address] Mar, [facility] [address] [id number] [place] [address] Feb, [facility] [address] [id number] [place] [address] Feb, [facility] [address] [id number] [place] [address] Nov, [facility] [address] [id number] [place] [address] Nov, [facility] [address] [id number] [place] [address] May, [facility] [address] [id number] [place] [address] Apr, [facility] [address] [id number] [place] [address] January, [facility] [address] [id number] [place] [address] Oct, [facility] [address] [id number] [place] [address] Sep, [facility] [address] [id number] [place] [address] Sep, [facility] [address] [id number] [place] [address] Sep, [facility] [address] [id number] [place] [address] Jul, [facility] [address] [id number] [place] [address] Jul, [facility] [address] [id number] [place] [address] Mar, [facility] [address] [id number] [place] [address] Sep, [facility] [address] [id number] [place] [address] Sep, [facility] [address] [id number] [place] [address] Sep, [facility] [place] [address] [id number] [place] [address] Sep, [facility] [place] [address] [id number] [place] [address] Aug, [facility] [place] [address] [id number] [place] [address] Aug, [facility] [place] [address] [id number] [place] [address] Aug, [facility] [place] [address] [id number] [place] [address] Aug, [facility] [place] [address] [id number] [place] [address] Aug, [facility] [place] [address] [id number] [place] [address] Aug, [facility] [place] [address] [place] [id number] [place] [address] Sep, [facility] [place] [address] [id number] [place] [address] Aug, [facility] [place] [address] [place] [id number] [place] [address] Jul, [facility] [place] [address] [id number] [place] [address] Jun, [facility] [place] [address] [place] [id number] [place] [address] Jun, [facility] [place] [address] [id number] [place] [address] May, IMMUNIZATIONS No Known Immunizations SOCIAL HISTORY [...]
--- OUTSIDE RECORDS SUMMARY | 2019-12-28 17:27 | XMS REPORT ---
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 Name Role Phone RENETTA Dewey Unavailable PROBLEMS Type Condition ICD9-CM Code LSV44-KU Code Onset Dates Condition S tatus SNOMED Code Problem Impotence N52.9 Active 697147892 Problem Tobacco abuse counseling Z71.6 Activ e 422437200 Problem Sciatica, right side M54.31 Active 98508755 Problem Primary osteoarthritis of right hip M16.11 Active 505644433 Problem Prediabetes R73.09 Active 2191297 Problem Hyperlipidemia, unspecified E78.5 Ac tive 59603392 Problem Establishing care with new doctor, encounter for Z 71.89 Active 717223556 Problem Tobacco abuse Z72.0 Active 991744 05 Problem Hypertension I10 Active 6085200 3 Problem Other chronic pain G89.29 Active 8 1074803 ALLERGIES No Information ENCOUNTERS Encounter Location Date Diagnosis [place] [address] [place] [id number] [address] [place] [address] Feb, Hypertension I10 and Acute p ain of right shoulder M25.511 [place] [address] [facility] [id number] [address] [place] [address] Feb, Acute pain of right shoulder M25.511 [place] [address] [facility] [id number] [address] [place] [address] January, Onychomycosis B35.1 and Ingr own toenail of right foot L60.0 [place] [address] [facility] [id number] [address] [place] [address] Sep, Right hip pain M25.551 and P rediabetes R73.09 [place] [address] [place] [id number] [address] [place] [address] Aug, Right leg pain M79.604 and H ypertension I10 [place] [address] [address] Jul, [place] [address] [place] [id number] [place] [address] May, Hypertension I10 and Polyp o f colon, unspecified part of colon, unspecified type K63.5 [place] [address] [address] 10 Apr, 2018 Positive colorectal cancer s creening using Cologuard test R19.5 [place] [address] [address] Apr, [place] [address] [address] Feb, [place] [address] [address] Feb, Hyperlipidemia, unspecified E78.5 [place] [address] [address] 06 Feb, 2018 Prediabetes R73.09 ; Hyperte nsion I10 ; Colon cancer screening Z12.11 ; Hyperlipidemia, unspecified E78.5 ; Pain in right hip M25.551 and Viral warts, unspecified type B07.9 [place] [address] [place] [id number] [address] [place] [address] Dec, Primary osteoarthritis of ri ght hip M16.11 [place] [address] [address] Nov, Primary osteoarthritis of ri ght hip M16.11 [place] [address] [place] [id number] [address] [place] [address] Nov, Right leg pain M79.604 and H ypertension I10 [place] [address] [place] [address] [place] [address] 08 Oct, 2017 [place] [address] [address] Sep, Prediabetes R73.09 ; Pre-op exam Z01.818 and Hypertension I10 [place] [address] [address] Jul, Other chronic pain G89.29 an d Pain in right hip M25.551 [place] [address] [place] [id number] [place] [address] 07 Jul, 2017 Elevated lipase R74.8 [place] [address] [address] Jul, [place] [address] [address] Jun, RUQ abdominal pain R10.11 [place] [address] [address] Jun, RUQ abdominal pain R10.11 an d Hematuria, unspecified type R31.9 [place] [address] [address] Jun, Right hip pain M25.551 [place] [address] [address] Jun, Prediabetes R73.03 ; Left fo ot pain M79.672 and Right hip pain M25.551 [facility] [address] [place] [id number] [address] [place] [address] Nov, Acute non-recurrent maxillar y sinusitis J01.00 [place] [address] [place] [id number] [address] [place] [address] Nov, Hypertension I10 ; Prediabet es R73.09 and Dyslipidemia 272.4 [place] [address] [address] Nov, Hypertension I10 ; Prediabet es R73.03 and Colon cancer screening Z12.11 [place] [address] [place] [id number] [address] [place] [address] Oct, Hypertension I10 [place] [address] [place] [id number] [address] [place] [address] Oct, [place] [address] [place] [id number] [place] [address] May, Strain of triceps tendon, ri ght, initial encounter S46.811A and Osteoarthritis of right knee, unspecified osteoarthritis type M17.9 [place] [address] [place] [id number] [place] [address] Apr, Elbow pain, right M25.521 an d Acute pain of right knee M25.561 [place] [address] [place] [address] Apr, [facility] [address] [place] [id number] [place] [address] Mar, Right elbow pain M25.521 [place] [address] [address] Mar, Hypertension I10 and Prediab etes R73.09 [place] [address] [place] [address] Nov, [place] [address] [place] [id number] [place] [address] Oct, Sciatica, right side M54.31 ; Establishing care with new doctor, encounter for Z71.89 ; Tobacco abuse Z72.0 ; Tobacco abuse counseling Z71.6 and Essential hypertension I10 [facility] [address] [place] [id number] [place] [address] Oct, Lumbago M54.5 [place] [address] [place] [id number] [address] [place] [address] Aug, Prediabetes R73.09 ; Hyperte nsion I10 and Impotence N52.9 [facility] [address] [place] [id number] [place] [address] 08 May, 2015 Ingrowing nail, right great toe 703.0 [facility] [address] [place] [id number] [place] [address] Mar, Dyslipidemia 272.4 [facility] [address] [place] [id number] [place] [address] Mar, Prediabetes 790.29 [facility] [address] [place] [id number] [place] [address] Feb, Prediabetes 790.29 and Impot ence of organic origin 607.84 [place] [address] [place] [id number] [address] [place] [address] Feb, [facility] [address] [place] [id number] [place] [address] Feb, [facility] [address] [place] [id number] [place] [address] Dec, Hypertension 401.9 ; Impoten ce due to erectile dysfunction 607.84 and Hyperglycemia 790.29 [facility] [address] [place] [id number] [place] [address] Dec, [facility] [address] [facility] [id number] [address] [place] [address] Dec, [facility] [address] [place] [id number] [address] [place] [address] Dec, [facility] [address] [place] [id number] [address] [place] [address] Nov, [facility] [address] [place] [id number] [place] [address] Nov, [facility] [address] [place] [id number] [place] [address] [place] [address] Oct, [facility] [address] [id number] [address] [place] [address], [place] [address] Oct, [facility] [address] [id number] [address] [place] [address], [place] [address] Oct, [facility] [address] [id number] [address] [place] [address], [place] [address] Oct, [facility] [address] [id number] [address] [place] [address], [place] [address] Sep, [facility] [address] [id number] [address] [place] [address], [place] [address] Sep, [facility] [address] [id number] [address] [place] [address], [place] [address] Sep, [facility] [address] [id number] [address] [place] [address], [place] [address] Sep, [facility] [address] [id number] [address] [place] [address], [place] [address] Sep, [facility] [address] [id number] [address] [place] [address], [place] [address] Sep, [facility] [address] [id number] [address] [place] [address], [place] [address] Jul, [facility] [address] [id number] [address] [place] [address], [place] [address] Jul, [facility] [address] [id number] [address] [place] [address], [place] [address] Jul, [facility] [address] [id number] [address] [place] [address], [place] [address] Jul, [facility] [address] [id number] [address] [place] [address], [place] [address] Jul, [facility] [address] [id number] [address] [place] [address], [place] [address] Jul, [facility] [address] [id number] [address] [place] [address], [place] [address] Jun, [facility] [address] [id number] [address] [place] [address], [place] [address] Mar, [facility] [address] [id number] [address] [place] [address], [place] [address] Mar, [facility] [address] [id number] [address] [place] [address], [place] [address] Mar, [facility] [address] [id number] [address] [place] [address], [place] [address] Mar, [facility] [address] [id number] [address] [place] [address], [place] [address] Feb, [facility] [address] [id number] [address] [place] [address], [place] [address] Feb, [facility] [address] [id number] [address] [place] [address], [place] [address] Nov, [facility] [address] [id number] [address] [place] [address], [place] [address] Nov, [facility] [address] [id number] [address] [place] [address], [place] [address] May, [facility] [address] [id number] [address] [place] [address], [place] [address] Apr, [facility] [address] [id number] [address] [place] [address], [place] [address] January, [facility] [address] [id number] [address] [place] [address], [place] [address] Oct, [facility] [address] [id number] [address] [place] [address], [place] [address] Sep, [facility] [address] [id number] [address] [place] [address], [place] [address] Sep, [facility] [address] [id number] [address] [place] [address], [place] [address] Sep, [facility] [address] [id number] [address] [place] [address], [place] [address] Jul, [facility] [address] [id number] [address] [place] [address], [place] [address] Jul, [facility] [address] [id number] [address] [place] [address], [place] [address] Mar, [facility] [address] [id number] [address] [place] [address], [place] [address] Sep, [facility] [address] [id number] [address] [place] [address], [place] [address] Sep, [facility] [address] [id number] [address] [place] [address], [place] [address] Sep, [facility] [address] [id number] [address] [place] [address], [place] [address] Sep, [facility] [address] [id number] [address] [place] [address], [place] [address] 29 Aug, 2010 [facility] [address] [id number] [address] [place] [address], [place] [address] 20 Aug, 2010 [facility] [address] [id number] [address] [place] [address], [place] [address] 16 Aug, 2010 [facility] [address] [id number] [address] [place] [address], [place] [address] 15 Aug, 2010 [facility] [address] [id number] [address] [place] [address], [place] [address] 15 Aug, 2010 [facility] [address] [id number] [address] [place] [address], [place] [address] 02 Aug, 2010 [facility] [address] [id number] [address] [place] [address], [place] [address] Sep, [facility] [address] [id number] [address] [place] [address], [place] [address] 22 Aug, 2009 [facility] [address] [id number] [address] [place] [address] Jul, [facility] [address] [facility] [id number] [address] [place] [address] Jun, [facility] [address] [facility] [id number] [address] [place] [address] Jun, [facility] [address] [facility] [id number] [address] [place] [address] May, IMMUNIZATIONS No Known Immunizations SOCIAL HISTORY Never Assessed REASON FOR VISIT PLAN OF CARE VITAL SIGNS Height 70 in 2014-10-19 Weight 147.9 lbs 2014-10-19 Temperature 98.1 degrees Fahrenheit 2014-10-19 Heart Rate 80 bpm 2014-10-19 Blood pressure systolic 140 mmHg 2014-10-19 Blood pressure diastolic 92 mmHg 2014-10-19 MEDICATIONS Unknown Medications RESULTS No Results PROCEDURES Procedure Date Ordered Result Body Site ASSAY OF TOTAL TESTOSTERONE Oct 19, 2014 ASSAY OF PSA, TOTAL Oct 19, 2014 GLYCATED HEMOGLOBIN TEST Oct 19, 2014 VENIPUNCT, ROUTINE* Oct 19, 2014 INSTRUCTIONS MEDICATIONS ADMINISTERED No Known Medications MEDICAL (GENERAL) HISTORY Type Description Date Medical History hypertension dx: 2008 Medical History hyperlipidemia Medical History prediabetes Surgical History Colonoscopy with polyps. FU in 1 year
--- OUTSIDE RECORDS SUMMARY | 2019-12-28 17:28 | XMS REPORT ---
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 Role Phone RENETTA Dewey Unavailable PROBLEMS Type Condition ICD9-CM Code YSK13-SQ Code Onset Dates Condition S tatus SNOMED Code Problem Impotence N52.9 Active 227535461 Problem Tobacco abuse counseling Z71.6 Activ e 465709341 Problem Sciatica, right side M54.31 Active 96019160 Problem Primary osteoarthritis of right hip M16.11 Active 740797064 Problem Prediabetes R73.09 Active 6878084 Problem Hyperlipidemia, unspecified E78.5 Ac tive 55013614 Problem Establishing care with new doctor, encounter for Z 71.89 Active 159084463 Problem Tobacco abuse Z72.0 Active 181790 05 Problem Hypertension I10 Active 3269070 3 Problem Other chronic pain G89.29 Active 8 4036141 ALLERGIES No Information ENCOUNTERS Encounter Location Date Diagnosis [place] [address] [place] [id number] [place] [phone] Feb, Hypertension I10 and Acute p ain of right shoulder M25.511 [place] [address] [address] [facility] [id number] [address] [place] [address] Feb, Acute pain of right shoulder M25.511 [place] [address] [address] [facility] [id number] [address] [place] [address] January, Onychomycosis B35.1 and Ingr own toenail of right foot L60.0 [place] [address] [facility] [id number] [address] [place] [address] Sep, Right hip pain M25.551 and P rediabetes R73.09 [place] [address] [place] [id number] [place] [address] Aug, Right leg pain M79.604 and H ypertension I10 [place] [address] [address] Jul, [place] [address] [place] [id number] [place] [address] May, Hypertension I10 and Polyp o f colon, unspecified part of colon, unspecified type K63.5 [place] [address] [address] 10 Apr, 2018 Positive colorectal cancer s creening using Cologuard test R19.5 [place] [address] [address] Apr, [place] [address] [address] Feb, [place] [address] [address] Feb, Hyperlipidemia, unspecified E78.5 [place] [address] [address] 06 Feb, 2018 Prediabetes R73.09 ; Hyperte nsion I10 ; Colon cancer screening Z12.11 ; Hyperlipidemia, unspecified E78.5 ; Pain in right hip M25.551 and Viral warts, unspecified type B07.9 [place] [address] [place] [id number] [address] [place] [address] Dec, Primary osteoarthritis of ri ght hip M16.11 [place] [address] [address] Nov, Primary osteoarthritis of ri ght hip M16.11 [place] [address] [place] [id number] [place] [address] Nov, Right leg pain M79.604 and H ypertension I10 [place] [address] [place] [id number] [place] [address] 08 Oct, 2017 [place] [address] [address] Sep, Prediabetes R73.09 ; Pre-op exam Z01.818 and Hypertension I10 [place] [address] [address] Jul, Other chronic pain G89.29 an d Pain in right hip M25.551 [place] [address] [place] [id number] [place] [address] 07 Jul, 2017 Elevated lipase R74.8 [place] [address] [address] Jul, [place] [address] [address] Jun, RUQ abdominal pain R10.11 [place] [address] [address] Jun, RUQ abdominal pain R10.11 an d Hematuria, unspecified type R31.9 [place] [address] [address] Jun, Right hip pain M25.551 [place] [address] [address] Jun, Prediabetes R73.03 ; Left fo ot pain M79.672 and Right hip pain M25.551 [facility] [address] [place] [id number] [place] [address] Nov, Acute non-recurrent maxillar y sinusitis J01.00 [place] [address] [place] [id number] [place] [address] Nov, Hypertension I10 ; Prediabet es R73.09 and Dyslipidemia 272.4 [place] [address] [address] Nov, Hypertension I10 ; Prediabet es R73.03 and Colon cancer screening Z12.11 [place] [address] [place] [id number] [place] [address] Oct, Hypertension I10 [place] [address] [place] [id number] [place] [address] Oct, [place] [address] [place] [id number] [place] [address] May, Strain of triceps tendon, ri ght, initial encounter S46.811A and Osteoarthritis of right knee, unspecified osteoarthritis type M17.9 [place] [address] [place] [id number] [place] [address] Apr, Elbow pain, right M25.521 an d Acute pain of right knee M25.561 [place] [address] [place] [address] Apr, [facility] [address] [place] [id number] [place] [address] Mar, Right elbow pain M25.521 [place] [address] [address] Mar, Hypertension I10 and Prediab etes R73.09 [place] [address] [place] [address] Nov, [place] [address] [place] [id number] [place] [address] Oct, Sciatica, right side M54.31 ; Establishing care with new doctor, encounter for Z71.89 ; Tobacco abuse Z72.0 ; Tobacco abuse counseling Z71.6 and Essential hypertension I10 [facility] [address] [place] [id number] [place] [address] Oct, Lumbago M54.5 [place] [address] [place] [id number] [place] [address] Aug, Prediabetes R73.09 ; Hyperte nsion I10 and Impotence N52.9 [facility] [address] [place] [id number] [place] [address] 08 May, 2015 Ingrowing nail, right great toe 703.0 [facility] [address] [place] [id number] [place] [address] Mar, Dyslipidemia 272.4 [facility] [address] [place] [id number] [place] [address] Mar, Prediabetes 790.29 [facility] [address] [place] [id number] [place] [address] Feb, Prediabetes 790.29 and Impot ence of organic origin 607.84 [place] [address] [place] [id number] [place] [address] Feb, [facility] [address] [place] [id number] [place] [address] Feb, [facility] [address] [place] [id number] [place] [address] Dec, Hypertension 401.9 ; Impoten ce due to erectile dysfunction 607.84 and Hyperglycemia 790.29 [facility] [address] [place] [id number] [place] [address] Dec, [facility] [address] [facility] [id number] [address] [place] [phone] Dec, [facility] [address] [place] [id number] [place] [address] Dec, [facility] [address] [place] [id number] [place] [address] Nov, [facility] [address] [place] [id number] [place] [address] Nov, [facility] [address] [place] [id number] [place] [address] [place] [address] Oct, [facility] [address] [id number] [address] [place] [address], [place] [address] Oct, [facility] [address] [id number] [address] [place] [address], [place] [address] Oct, [facility] [address] [id number] [address] [place] [address], [place] [address] Oct, [facility] [address] [id number] [address] [place] [address], [place] [address] Sep, [facility] [address] [id number] [address] [place] [address], [place] [address] Sep, [facility] [address] [id number] [address] [place] [address], [place] [address] Sep, [facility] [address] [id number] [address] [place] [address], [place] [address] Sep, [facility] [address] [id number] [address] [place] [address], [place] [address] Sep, [facility] [address] [id number] [address] [place] [address], [place] [address] Sep, [facility] [address] [id number] [address] [place] [address], [place] [address] Jul, [facility] [address] [id number] [address] [place] [address], [place] [address] Jul, [facility] [address] [id number] [address] [place] [address], [place] [address] Jul, [facility] [address] [id number] [address] [place] [address], [place] [address] Jul, [facility] [address] [id number] [address] [place] [address], [place] [address] Jul, [facility] [address] [id number] [address] [place] [address], [place] [address] Jul, [facility] [address] [id number] [address] [place] [address], [place] [address] Jun, [facility] [address] [id number] [address] [place] [address], [place] [address] Mar, [facility] [address] [id number] [address] [place] [address], [place] [address] Mar, [facility] [address] [id number] [address] [place] [address], [place] [address] Mar, [facility] [address] [id number] [address] [place] [address], [place] [address] Mar, [facility] [address] [id number] [address] [place] [address], [place] [address] Feb, [facility] [address] [id number] [address] [place] [address], [place] [address] Feb, [facility] [address] [id number] [address] [place] [address], [place] [address] Nov, [facility] [address] [id number] [address] [place] [address], [place] [address] Nov, [facility] [address] [id number] [address] [place] [address], [place] [address] May, [facility] [address] [id number] [address] [place] [address], [place] [address] Apr, [facility] [address] [id number] [address] [place] [address], [place] [address] January, [facility] [address] [id number] [address] [place] [address], [place] [address] Oct, [facility] [address] [id number] [address] [place] [address], [place] [address] Sep, [facility] [address] [id number] [address] [place] [address], [place] [address] Sep, [facility] [address] [id number] [address] [place] [address], [place] [address] Sep, [facility] [address] [id number] [address] [place] [address], [place] [address] Jul, [facility] [address] [id number] [address] [place] [address], [place] [address] Jul, [facility] [address] [id number] [address] [place] [address], [place] [address] Mar, [facility] [address] [id number] [address] [place] [address], [place] [address] Sep, [facility] [address] [id number] [address] [place] [address], [place] [address] Sep, [facility] [address] [id number] [address] [place] [address], [place] [address] Sep, [facility] [address] [id number] [address] [place] [address], [place] [address] Sep, [facility] [address] [id number] [address] [place] [address], [place] [address] 29 Aug, 2010 [facility] [address] [id number] [address] [place] [address], [place] [address] 20 Aug, 2010 [facility] [address] [id number] [address] [place] [address], [place] [address] 16 Aug, 2010 [facility] [address] [id number] [address] [place] [address], [place] [address] 15 Aug, 2010 [facility] [address] [id number] [address] [place] [address], [place] [address] 15 Aug, 2010 [facility] [address] [id number] [address] [place] [address], [place] [address] 02 Aug, 2010 [facility] [address] [id number] [address] [place] [address], [place] [address] Sep, [facility] [address] [id number] [address] [place] [address], [place] [address] 22 Aug, 2009 [facility] [address] [id number] [address] [place] [address] Jul, [facility] [address] [facility] [id number] [address] [place] [id number] Jun, [facility] [address] [facility] [id number] [address] [place] [phone] Jun, [facility] [address] [facility] [id number] [address] [place] [address] May, IMMUNIZATIONS No Known Immunizations SOCIAL HISTORY Never Assessed REASON FOR VISIT PLAN OF CARE VITAL SIGNS Blood pressure systolic 128 mmHg 2014-11-23 Blood pressure diastolic 76 mmHg 2014-11-23 MEDICATIONS Unknown Medications RESULTS No Results PROCEDURES Procedure Date Ordered Result Body Site BLOOD PRESSURE, MEASURED Nov 23, 2014 INSTRUCTIONS MEDICATIONS ADMINISTERED No Known Medications MEDICAL (GENERAL) HISTORY Type Description Date Medical History hypertension dx: 2008 Medical History hyperlipidemia Medical History prediabetes Surgical History Colonoscopy with polyps. FU in 1 year
--- OUTSIDE RECORDS SUMMARY | 2019-12-28 17:28 | XMS REPORT ---
Author Author Jarod Li Doctor Organization [facility] Address Unknown Phone Unavailable Care Team Providers Care Regulatory Auditor Name Role Phone Migration, Doctor Unavailable Unavailable PROBLEMS Type Condition ICD9-CM Code AZM26-TQ Code Onset Dates Condition S tatus SNOMED Code Problem Impotence N52.9 Active 333836553 Problem Tobacco abuse counseling Z71.6 Activ e [id number] Problem Sciatica, right side M54.31 Active 94811228 Problem Primary osteoarthritis of right hip M16.11 Active 987953864 Problem Prediabetes R73.09 Active 6152992 Problem Hyperlipidemia, unspecified E78.5 Ac tive 77257438 Problem Establishing care with new doctor, encounter for Z 71.89 Active 103946824 Problem Tobacco abuse Z72.0 Active 409606 05 Problem Hypertension I10 Active 1964628 3 Problem Other chronic pain G89.29 Active 8 [id number] ALLERGIES No Information ENCOUNTERS Encounter Location Date Diagnosis [place] [address] [place] [id number] [place] [address] Feb, [place] [id number] [place] [address] January, Onychomycosis B35.1 and Ingr own toenail of right foot L60.0 [place] [address] [facility] [id number] [address] [place] [address] Sep, Right hip pain M25.551 and P rediabetes R73.09 [place] [address] [facility] [id number] [address] [place] [address] Aug, Right leg pain M79.604 and H ypertension I10 [place] [address] [facility] [id number] [address] [place] [address] Jul, [place] [address] [place] [id number] [address] [place] [address] May, Hypertension I10 and Polyp o f colon, unspecified part of colon, unspecified type K63.5 [place] [address] [facility] [id number] [address] [place] [address] Apr, Positive colorectal cancer s creening using Cologuard test R19.5 [place] [address] [place] [id number] [address] [place] [address] Apr, [place] [address] [facility] [id number] [address] [place] [address] Feb, [place] [address] [facility] [id number] [address] [place] [address] Feb, Hyperlipidemia, unspecified E78.5 [place] [address] [place] [id number] [address] [place] [address] Feb, Prediabetes R73.09 ; Hyperte nsion I10 ; Colon cancer screening Z12.11 ; Hyperlipidemia, unspecified E78.5 ; Pain in right hip M25.551 and Viral warts, unspecified type B07.9 [place] [address] [facility] [id number] [address] [place] [address] Dec, Primary osteoarthritis of ri ght hip M16.11 [place] [address] [facility] [id number] [address] [place] [address] Nov, Primary osteoarthritis of ri ght hip M16.11 [place] [address] [facility] [id number] [address] [place] [address] Nov, Right leg pain M79.604 and H ypertension I10 [place] [address] [facility] [id number] [address] [place] [address] Oct, [place] [address] [place] [id number] [address] [place] [address] Sep, Prediabetes R73.09 ; Pre-op exam Z01.818 and Hypertension I10 [place] [address] [place] [id number] [address] [place] [address] 14 Jul, 2017 Other chronic pain G89.29 an d Pain in right hip M25.551 [facility] [address] [place] [id number] [place] [address] 07 Jul, 2017 Elevated lipase R74.8 [facility] [address] [place] [id number] [address] [place] [address] 03 Jul, 2017 [facility] [address] [address] 30 Jun, 2017 RUQ abdominal pain R10.11 [place] [address] [address] Jun, RUQ abdominal pain R10.11 an d Hematuria, unspecified type R31.9 [place] [address] [address] 17 Jun, 2017 Right hip pain M25.551 [facility] [address] [address] 16 Jun, 2017 Prediabetes R73.03 ; Left fo ot pain M79.672 and Right hip pain M25.551 [facility] [address] [address] Nov, Acute non-recurrent maxillar y sinusitis J01.00 [facility] [address] [place] [address] Nov, Hypertension I10 ; Prediabet es R73.09 and Dyslipidemia 272.4 [facility] [address] [place] [id number] [place] [address] Nov, Hypertension I10 ; Prediabet es R73.03 and Colon cancer screening Z12.11 [facility] [address] [place] [id number] [address] [place] [address] Oct, Hypertension I10 [facility] [address] [address] Oct, [place] [address] [facility] [id number] [address] [place] [address] May, Strain of triceps tendon, ri ght, initial encounter S46.811A and Osteoarthritis of right knee, unspecified osteoarthritis type M17.9 [place] [address] [facility] [id number] [address] [place] [address] Apr, Elbow pain, right M25.521 an d Acute pain of right knee M25.561 [place] [address] [facility] [id number] [address] [place] [address] Apr, [facility] [place] [address] [facility] [id number] [address] [place] [address] Mar, Right elbow pain M25.521 [place] [address] [facility] [id number] [address] [place] [address] Mar, Hypertension I10 and Prediab etes R73.09 [place] [address] [facility] [id number] [address] [place] [address] Nov, [place] [address] [facility] [id number] [address] [place] [address] Oct, Sciatica, right side M54.31 ; Establishing care with new doctor, encounter for Z71.89 ; Tobacco abuse Z72.0 ; Tobacco abuse counseling Z71.6 and Essential hypertension I10 [facility] [address] [facility] [id number] [address] [place] [address] Oct, Lumbago M54.5 [place] [address] [facility] [id number] [address] [place] [address] Aug, Prediabetes R73.09 ; Hyperte nsion I10 and Impotence N52.9 [place] [address] [facility] [id number] [address] [place] [address] 08 May, 2015 Ingrowing nail, right great toe 703.0 [place] [address] [place] [id number] [address] [place] [address] 16 Mar, 2015 Dyslipidemia 272.4 [facility] [address] [facility] [id number] [address] [place] [address] 14 Mar, 2015 Prediabetes 790.29 [facility] [address] [facility] [id number] [address] [place] [address] 24 Feb, 2015 Prediabetes 790.29 and Impot ence of organic origin 607.84 [facility] [address] [facility] [id number] [address] [place] [address] 18 Feb, 2015 [facility] [address] [facility] [id number] [address] [place] [address] Feb, [facility] [address] [place] [id number] [address] [place] [address] Dec, Hypertension 401.9 ; Impoten ce due to erectile dysfunction 607.84 and Hyperglycemia 790.29 [facility] [address] [facility] [id number] [address] [place] [address] Dec, [facility] [address] [facility] [id number] [address] [place] [address] Dec, [facility] [address] [place] [id number] [address] [place] [address] Dec, [facility] [address] [facility] [id number] [address] [place] [address] Nov, [facility] [address] [facility] [id number] [address] [place] [address] Nov, [facility] [address] [facility] [id number] [address] [place] [address] Oct, [facility] [address] [facility] [id number] [address] [place] [address] Oct, [facility] [address] [facility] [id number] [address] [place] [address] Oct, [facility] [address] [id number] [address] [place] [address], [place] [address] Oct, [facility] [address] [id number] [address] [place] [address], [place] [address] Sep, [facility] [address] [id number] [address] [place] [address], [place] [address] Sep, [facility] [address] [id number] [address] [place] [address], [place] [address] Sep, [facility] [address] [id number] [address] [place] [address], [place] [address] Sep, [facility] [address] [id number] [address] [place] [address], [place] [address] Sep, [facility] [address] [id number] [address] [place] [address], [place] [address] Sep, [facility] [address] [id number] [address] [place] [address], [place] [address] Jul, [facility] [address] [id number] [address] [place] [address], [place] [address] Jul, [facility] [address] [id number] [address] [place] [address], [place] [address] Jul, [facility] [address] [id number] [address] [place] [address], [place] [address] Jul, [facility] [address] [id number] [address] [place] [address], [place] [address] Jul, [facility] [address] [id number] [address] [place] [address], [place] [address] Jul, [facility] [address] [id number] [address] [place] [address], [place] [address] Jun, [facility] [address] [id number] [address] [place] [address], [place] [address] Mar, [facility] [address] [id number] [address] [place] [address], [place] [address] Mar, [facility] [address] [id number] [address] [place] [address], [place] [address] Mar, [facility] [address] [id number] [address] [place] [address], [place] [address] Mar, [facility] [address] [id number] [address] [place] [address], [place] [address] Feb, [facility] [address] [id number] [address] [place] [address], [place] [address] Feb, [facility] [address] [id number] [address] [place] [address], [place] [address] Nov, [facility] [address] [id number] [address] [place] [address], [place] [address] Nov, [facility] [address] [id number] [address] [place] [address], [place] [address] May, [facility] [address] [id number] [address] [place] [address], [place] [address] Apr, [facility] [address] [id number] [address] [place] [address], [place] [address] January, [facility] [address] [id number] [address] [place] [address], [place] [address] Oct, [facility] [address] [id number] [address] [place] [address], [place] [address] Sep, [facility] [address] [id number] [address] [place] [address], [place] [address] Sep, [facility] [address] [id number] [address] [place] [address], [place] [address] Sep, [facility] [address] [id number] [address] [place] [address], [place] [address] Jul, [facility] [address] [id number] [address] [place] [address], [place] [address] Jul, [facility] [address] [id number] [address] [place] [address], [place] [address] 11 Mar, 2012 [facility] [address] [id number] [address] [place] [address], [place] [address] 13 Sep, 2011 [facility] [address] [id number] [address] [place] [address], [place] [address] 11 Sep, 2011 [facility] [address] [id number] [address] [place] [address], [place] [address] 10 Sep, 2011 [facility] [address] [id number] [address] [place] [address], [place] [address] 09 Sep, 2011 [facility] [address] [id number] [address] [place] [address], [place] [address] 29 Aug, 2010 [facility] [address] [id number] [address] [place] [address], [place] [address] 20 Aug, 2010 [facility] [address] [id number] [address] [place] [address], [place] [address] 16 Aug, 2010 [facility] [address] [id number] [address] [place] [address], [place] [address] 15 Aug, 2010 [facility] [address] [id number] [address] [place] [address], [place] [address] 15 Aug, 2010 [facility] [address] [id number] [address] [place] [address], [place] [address] 02 Aug, 2010 [facility] [address] [id number] [address] [place] [address], [place] [address] Sep, [facility] [address] [id number] [address] [place] [address], [place] [address] Aug, [facility] [address] [id number] [address] [place] [address], [place] [address] Jul, [facility] [address] [id number] [address] [place] [address], [place] [address] Jun, [facility] [address] [id number] [address] [place] [address], [place] [address] Jun, [facility] [address] [facility] [id number] [address] [place] [address] 18 May, 2009 IMMUNIZATIONS No Known Immunizations SOCIAL HISTORY Never Assessed REASON FOR VISIT EMR-[facility] [place] PLAN OF CARE VITAL SIGNS MEDICATIONS Unknown Medications RESULTS No Results PROCEDURES No Known procedures INSTRUCTIONS MEDICATIONS ADMINISTERED No Known Medications MEDICAL (GENERAL) HISTORY Type Description Date Medical History hypertension dx: 2008 Medical History hyperlipidemia Medical History prediabetes Surgical History Colonoscopy with polyps. FU in 1 year
--- OUTSIDE RECORDS SUMMARY | 2019-12-28 17:28 | XMS REPORT ---
Author Author Jarod Porter Organization [facility] Address [address] [place] [address] Care Team Providers Care Photogrammetric Technician Name Role Phone EBONI Porter Unavailable PROBLEMS Type Condition ICD9-CM Code CUW90-UQ Code Onset Dates Condition S tatus SNOMED Code Problem Impotence N52.9 Active 290824427 Problem Tobacco abuse counseling Z71.6 Activ e 408522107 Problem Sciatica, right side M54.31 Active 52748737 Problem Primary osteoarthritis of right hip M16.11 Active 757177117 Problem Prediabetes R73.09 Active 9815303 Problem Hyperlipidemia, unspecified E78.5 Ac tive 07256574 Problem Establishing care with new doctor, encounter for Z 71.89 Active 409713877 Problem Tobacco abuse Z72.0 Active 768329 05 Problem Hypertension I10 Active 5998673 3 Problem Other chronic pain G89.29 Active 8 [id number] ALLERGIES No Information ENCOUNTERS Encounter Location Date Diagnosis [place] [address] [address] [facility] [id number] [address] [place] [address] Feb, Hypertension I10 and Acute p ain of right shoulder M25.511 [place] [address] [address] [facility] [id number] [address] [place] [address] Feb, Acute pain of right shoulder M25.511 [place] [address] [address] [facility] [id number] [address] [place] [address] January, Onychomycosis B35.1 and Ingr own toenail of right foot L60.0 [place] [address] [address] [facility] [id number] [address] [place] [address] Sep, Right hip pain M25.551 and P rediabetes R73.09 [place] [address] [address] [facility] [id number] [address] [place] [address] Aug, Right leg pain M79.604 and H ypertension I10 [place] [address] [address] [facility] [id number] [address] [place] [address] Jul, [place] [address] [address] [facility] [id number] [address] [place] [address] May, Hypertension I10 and Polyp o f colon, unspecified part of colon, unspecified type K63.5 [place] [address] [address] [place] [id number] [address] [place] [address] Apr, Positive colorectal cancer s creening using Cologuard test R19.5 [place] [address] [address] [place] [id number] [address] [place] [address] Apr, [place] [address] [address] [place] [id number] [address] [place] [address] Feb, [place] [address] [address] [place] [id number] [place] [address] Feb, Hyperlipidemia, unspecified E78.5 [place] [address] [address] [place] [id number] [address] [place] [address] Feb, Prediabetes R73.09 ; Hyperte nsion I10 ; Colon cancer screening Z12.11 ; Hyperlipidemia, unspecified E78.5 ; Pain in right hip M25.551 and Viral warts, unspecified type B07.9 [place] [address] [address] [place] [id number] [address] [place] [address] Dec, Primary osteoarthritis of ri ght hip M16.11 [place] [address] [address] [facility] [id number] [address] [place] [address] Nov, Primary osteoarthritis of ri ght hip M16.11 [place] [address] [address] [place] [id number] [address] [place] [address] Nov, Right leg pain M79.604 and H ypertension I10 [place] [address] [address] 08 Oct, 2017 [place] [address] [address] Sep, Prediabetes R73.09 ; Pre-op exam Z01.818 and Hypertension I10 [place] [address] [address] 14 Jul, 2017 Other chronic pain G89.29 an d Pain in right hip M25.551 [place] [address] [address] 07 Jul, 2017 Elevated lipase R74.8 [place] [address] [address] Jul, [place] [address] [address] Jun, RUQ abdominal pain R10.11 [place] [address] [address] Jun, RUQ abdominal pain R10.11 an d Hematuria, unspecified type R31.9 [place] [address] [address] 17 Jun, 2017 Right hip pain M25.551 [place] [address] [address] Jun, Prediabetes R73.03 ; Left fo ot pain M79.672 and Right hip pain M25.551 [facility] [address] [address] Nov, Acute non-recurrent maxillar y sinusitis J01.00 [place] [address] [address] Nov, Hypertension I10 ; Prediabet es R73.09 and Dyslipidemia 272.4 [place] [address] [address] Nov, Hypertension I10 ; Prediabet es R73.03 and Colon cancer screening Z12.11 [place] [address] [address] Oct, Hypertension I10 [place] [address] [address] Oct, [place] [address] [address] May, Strain of triceps tendon, ri t, initial encounter S46.811A and Osteoarthritis of right knee, unspecified osteoarthritis type M17.9 [place] [address] [address] Apr, Elbow pain, right M25.521 an d Acute pain of right knee M25.561 [place] [address] [address] Apr, [facility] [address] [address] Mar, Right elbow pain M25.521 [place] [address] [address] Mar, Hypertension I10 and Prediab etes R73.09 [place] [address] [address] Nov, [place] [address] [address] Oct, Sciatica, right side M54.31 ; Establishing care with new doctor, encounter for Z71.89 ; Tobacco abuse Z72.0 ; Tobacco abuse counseling Z71.6 and Essential hypertension I10 [facility] [address] [place] [id number] [place] [address] Oct, Lumbago M54.5 [place] [address] [address] Aug, Prediabetes R73.09 ; Hyperte nsion I10 and Impotence N52.9 [facility] [address] [place] [id number] [place] [address] 08 May, 2015 Ingrowing nail, right great toe 703.0 [facility] [address] [place] [id number] [address] [place] [address] Mar, Dyslipidemia 272.4 [facility] [address] [place] [id number] [address] [place] [address] Mar, Prediabetes 790.29 [facility] [address] [place] [id number] [address] [place] [address] Feb, Prediabetes 790.29 and Impot ence of organic origin 607.84 [facility] [address] [place] [id number] [address] [place] [address] Feb, [facility] [address] [place] [id number] [address] [place] [address] Feb, [facility] [address] [place] [id number] [address] [place] [address] Dec, Hypertension 401.9 ; Impoten ce due to erectile dysfunction 607.84 and Hyperglycemia 790.29 [facility] [address] [place] [id number] [address] [place] [address] Dec, [facility] [address] [facility] [id number] [address] [place] [address] Dec, [facility] [address] [place] [id number] [address] [place] [address] Dec, [facility] [address] [place] [id number] [address] [place] [address] Nov, [facility] [address] [place] [id number] [address] [place] [address] Nov, [facility] [address] [place] [id number] [address] [place] [address] Oct, [facility] [address] [id number] [address] [place] [address], [place] [address] Oct, [facility] [address] [id number] [address] [place] [address], [place] [address] Oct, [facility] [address] [id number] [address] [place] [address], [place] [address] Oct, [facility] [address] [id number] [address] [place] [address], [place] [address] Sep, [facility] [address] [id number] [address] [place] [address], [place] [address] Sep, [facility] [address] [id number] [address] [place] [address], [place] [address] Sep, [facility] [address] [id number] [address] [place] [address] Sep, [facility] [address] [id number] [address] [place] [address] Sep, [facility] [address] [id number] [address] [place] [address], [place] [address] Sep, [facility] [address] [id number] [address] [place] [address] Jul, [facility] [address] [id number] [address] [place] [address], [place] [address] Jul, [facility] [address] [id number] [address] [place] [address] Jul, [facility] [address] [id number] [address] [place] [address] Jul, [facility] [address] [id number] [address] [place] [address] Jul, [facility] [address] [id number] [address] [place] [address] Jul, [facility] [address] [id number] [address] [place] [address], [place] [address] Jun, [facility] [address] [id number] [address] [place] [address], [place] [address] Mar, [facility] [address] [id number] [address] [place] [address], [place] [address] Mar, [facility] [address] [id number] [address] [place] [address], [place] [address] Mar, [facility] [address] [id number] [address] [place] [address], [place] [address] Mar, [facility] [address] [id number] [address] [place] [address], [place] [address] Feb, [facility] [address] [id number] [address] [place] [address], [place] [address] Feb, [facility] [address] [id number] [address] [place] [address], [place] [address] Nov, [facility] [address] [id number] [address] [place] [address], [place] [address] Nov, [facility] [address] [id number] [address] [place] [address], [place] [address] May, [facility] [address] [id number] [address] [place] [address], [place] [address] Apr, [facility] [address] [id number] [address] [place] [address], [place] [address] January, [facility] [address] [id number] [address] [place] [address], [place] [address] Oct, [facility] [address] [id number] [address] [place] [address], [place] [address] Sep, [facility] [address] [id number] [address] [place] [address], [place] [address] Sep, [facility] [address] [id number] [address] [place] [address], [place] [address] Sep, [facility] [address] [id number] [address] [place] [address], [place] [address] Jul, [facility] [address] [id number] [address] [place] [address], [place] [address] Jul, [facility] [address] [id number] [address] [place] [address], [place] [address] Mar, [facility] [address] [id number] [address] [place] [address], [place] [address] Sep, [facility] [address] [id number] [address] [place] [address], [place] [address] Sep, [facility] [address] [id number] [address] [place] [address], [place] [address] Sep, [facility] [address] [id number] [address] [place] [address], [place] [address] Sep, [facility] [address] [id number] [address] [place] [address], [place] [address] 29 Aug, 2010 [facility] [address] [id number] [address] [place] [address], [place] [address] 20 Aug, 2010 [facility] [address] [id number] [address] [place] [address], [place] [address] 16 Aug, 2010 [facility] [address] [id number] [address] [place] [address], [place] [address] 15 Aug, 2010 [facility] [address] [id number] [address] [place] [address], [place] [address] 15 Aug, 2010 [facility] [address] [id number] [address] [place] [address], [place] [address] Aug, [facility] [address] [id number] [address] [place] [address], [place] [address] Sep, [facility] [address] [id number] [address] [place] [address], [place] [address] Aug, [facility] [address] [id number] [address] [place] [address] Jul, [facility] [address] [facility] [id number] [address] [place] [address] Jun, [facility] [address] [facility] [id number] [address] [place] [address] Jun, [facility] [address] [facility] [id number] [address] [place] [address] May, IMMUNIZATIONS No Known Immunizations SOCIAL HISTORY [...]
--- OUTSIDE RECORDS SUMMARY | 2019-12-28 17:28 | XMS REPORT ---
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 Name Role Phone EBONI Porter Unavailable PROBLEMS Type Condition ICD9-CM Code [id number] Code Onset Dates Condition S tatus SNOMED Code Problem Impotence N52.9 Active 041820665 Problem Tobacco abuse counseling Z71.6 Activ e 030282900 Problem Sciatica, right side M54.31 Active 15118331 Problem Primary osteoarthritis of right hip M16.11 Active 182142166 Problem Prediabetes R73.09 Active 8879968 Problem Hyperlipidemia, unspecified E78.5 Ac tive 92366934 Problem Establishing care with new doctor, encounter for Z 71.89 Active 855141052 Problem Tobacco abuse Z72.0 Active 141118 05 Problem Hypertension I10 Active 4804592 3 Problem Other chronic pain G89.29 Active 8 3080292 ALLERGIES No Information ENCOUNTERS Encounter Location Date Diagnosis [place] [address] [address] [facility] [place] [id number] [address] [place] [address] Feb, Hypertension I10 and Acute p ain of right shoulder M25.511 [place] [address] [address] [facility] [place] [id number] [address] [place] [address] Feb, Acute pain of right shoulder M25.511 [place] [address] [address] [facility] [place] [id number] [address] [place] [address] January, Onychomycosis B35.1 and Ingr own toenail of right foot L60.0 [place] [address] [address] [facility] [place] [id number] [address] [place] [address] Sep, Right hip pain M25.551 and P rediabetes R73.09 [place] [address] [address] [facility] [place] [id number] [address] [place] [address] Aug, Right leg pain M79.604 and H ypertension I10 [place] [address] [address] [facility] [place] [id number] [address] [place] [address] Jul, [place] [address] [address] [facility] [place] [id number] [address] [place] [address] May, Hypertension I10 and Polyp o f colon, unspecified part of colon, unspecified type K63.5 [place] [address] [address] [place] [id number] [address] [place] [address] Apr, Positive colorectal cancer s creening using Cologuard test R19.5 [place] [address] [address] [place] [id number] [address] [place] [address] Apr, [place] [address] [place] [id number] [address] [place] [address] Feb, [place] [address] [address] [place] [id number] [address] [place] [address] Feb, Hyperlipidemia, unspecified E78.5 [place] [address] [address] [place] [id number] [address] [place] [address] Feb, Prediabetes R73.09 ; Hyperte nsion I10 ; Colon cancer screening Z12.11 ; Hyperlipidemia, unspecified E78.5 ; Pain in right hip M25.551 and Viral warts, unspecified type B07.9 [place] [address] [address] [place] [id number] [address] [place] [address] Dec, Primary osteoarthritis of ri ght hip M16.11 [place] [address] [address] [facility] [place] [id number] [address] [place] [address] Nov, Primary osteoarthritis of ri ght hip M16.11 [place] [address] [address] [place] [id number] [address] [place] [address] Nov, Right leg pain M79.604 and H ypertension I10 [place] [address] [address] 08 Oct, 2017 [place] [address] [address] Sep, Prediabetes R73.09 ; Pre-op exam Z01.818 and Hypertension I10 [place] [address] [address] 14 Jul, 2017 Other chronic pain G89.29 an d Pain in right hip M25.551 [place] [address] [address] 07 Jul, 2017 Elevated lipase R74.8 [place] [address] [address] Jul, [place] [address] [address] Jun, RUQ abdominal pain R10.11 [place] [address] [address] Jun, RUQ abdominal pain R10.11 an d Hematuria, unspecified type R31.9 [place] [address] [address] 17 Jun, 2017 Right hip pain M25.551 [place] [address] [address] Jun, Prediabetes R73.03 ; Left fo ot pain M79.672 and Right hip pain M25.551 [facility] [address] [address] Nov, Acute non-recurrent maxillar y sinusitis J01.00 [place] [address] [address] Nov, Hypertension I10 ; Prediabet es R73.09 and Dyslipidemia 272.4 [place] [address] [address] Nov, Hypertension I10 ; Prediabet es R73.03 and Colon cancer screening Z12.11 [place] [address] [address] Oct, Hypertension I10 [place] [address] [address] Oct, [place] [address] [address] May, Strain of triceps tendon, ri t, initial encounter S46.811A and Osteoarthritis of right knee, unspecified osteoarthritis type M17.9 [place] [address] [address] Apr, Elbow pain, right M25.521 an d Acute pain of right knee M25.561 [place] [address] [address] Apr, [facility] [address] [address] Mar, Right elbow pain M25.521 [place] [address] [address] Mar, Hypertension I10 and Prediab etes R73.09 [place] [address] [address] Nov, [place] [address] [address] Oct, Sciatica, right side M54.31 ; Establishing care with new doctor, encounter for Z71.89 ; Tobacco abuse Z72.0 ; Tobacco abuse counseling Z71.6 and Essential hypertension I10 [facility] [address] [place] [id number] [place] [address] Oct, Lumbago M54.5 [place] [address] [address] Aug, Prediabetes R73.09 ; Hyperte nsion I10 and Impotence N52.9 [facility] [address] [place] [id number] [place] [address] 08 May, 2015 Ingrowing nail, right great toe 703.0 [facility] [address] [place] [id number] [address] [place] [address] Mar, Dyslipidemia 272.4 [facility] [address] [place] [id number] [address] [place] [address] Mar, Prediabetes 790.29 [facility] [address] [place] [id number] [address] [place] [address] Feb, Prediabetes 790.29 and Impot ence of organic origin 607.84 [facility] [address] [place] [id number] [address] [place] [address] Feb, [facility] [address] [place] [id number] [address] [place] [address] Feb, [facility] [address] [place] [id number] [address] [place] [address] Dec, Hypertension 401.9 ; Impoten ce due to erectile dysfunction 607.84 and Hyperglycemia 790.29 [facility] [address] [place] [id number] [address] [place] [address] Dec, [facility] [address] [facility] [id number] [address] [place] [address] Dec, [facility] [address] [place] [id number] [address] [place] [address] Dec, [facility] [address] [place] [id number] [address] [place] [address] Nov, [facility] [address] [place] [id number] [address] [place] [address] Nov, [facility] [address] [place] [id number] [address] [place] [address] Oct, [facility] [address] [id number] [address] [place] [address], [place] [address] Oct, [facility] [address] [id number] [address] [place] [address], [place] [address] Oct, [facility] [address] [id number] [address] [place] [address], [place] [address] Oct, [facility] [address] [id number] [address] [place] [address], [place] [address] Sep, [facility] [address] [id number] [address] [place] [address], [place] [address] Sep, [facility] [address] [id number] [address] [place] [address], [place] [address] Sep, [facility] [address] [id number] [address] [place] [address] Sep, [facility] [address] [id number] [address] [place] [address] Sep, [facility] [address] [id number] [address] [place] [address], [place] [address] Sep, [facility] [address] [id number] [address] [place] [address] Jul, [facility] [address] [id number] [address] [place] [address], [place] [address] Jul, [facility] [address] [id number] [address] [place] [address] Jul, [facility] [address] [id number] [address] [place] [address] Jul, [facility] [address] [id number] [address] [place] [address] Jul, [facility] [address] [id number] [address] [place] [address] Jul, [facility] [address] [id number] [address] [place] [address], [place] [address] Jun, [facility] [address] [id number] [address] [place] [address], [place] [address] Mar, [facility] [address] [id number] [address] [place] [address], [place] [address] Mar, [facility] [address] [id number] [address] [place] [address], [place] [address] Mar, [facility] [address] [id number] [address] [place] [address], [place] [address] Mar, [facility] [address] [id number] [address] [place] [address], [place] [address] Feb, [facility] [address] [id number] [address] [place] [address], [place] [address] Feb, [facility] [address] [id number] [address] [place] [address], [place] [address] Nov, [facility] [address] [id number] [address] [place] [address], [place] [address] Nov, [facility] [address] [id number] [address] [place] [address], [place] [address] May, [facility] [address] [id number] [address] [place] [address], [place] [address] Apr, [facility] [address] [id number] [address] [place] [address], [place] [address] January, [facility] [address] [id number] [address] [place] [address], [place] [address] Oct, [facility] [address] [id number] [address] [place] [address], [place] [address] Sep, [facility] [address] [id number] [address] [place] [address], [place] [address] Sep, [facility] [address] [id number] [address] [place] [address], [place] [address] Sep, [facility] [address] [id number] [address] [place] [address], [place] [address] Jul, [facility] [address] [id number] [address] [place] [address], [place] [address] Jul, [facility] [address] [id number] [address] [place] [address], [place] [address] Mar, [facility] [address] [id number] [address] [place] [address], [place] [address] Sep, [facility] [address] [id number] [address] [place] [address], [place] [address] Sep, [facility] [address] [id number] [address] [place] [address], [place] [address] Sep, [facility] [address] [id number] [address] [place] [address], [place] [address] Sep, [facility] [address] [id number] [address] [place] [address], [place] [address] 29 Aug, 2010 [facility] [address] [id number] [address] [place] [address], [place] [address] 20 Aug, 2010 [facility] [address] [id number] [address] [place] [address], [place] [address] 16 Aug, 2010 [facility] [address] [id number] [address] [place] [address], [place] [address] 15 Aug, 2010 [facility] [address] [id number] [address] [place] [address], [place] [address] 15 Aug, 2010 [facility] [address] [id number] [address] [place] [address], [place] [address] Aug, [facility] [address] [id number] [address] [place] [address], [place] [address] Sep, [facility] [address] [id number] [address] [place] [address], [place] [address] Aug, [facility] [address] [id number] [address] [place] [address] Jul, [facility] [address] [facility] [id number] [address] [place] [address] Jun, [facility] [address] [facility] [id number] [address] [place] [address] Jun, [facility] [address] [facility] [id number] [address] [place] [address] May, IMMUNIZATIONS No Known Immunizations SOCIAL HISTORY [...]
--- OUTSIDE RECORDS SUMMARY | 2019-12-28 17:28 | XMS REPORT ---
Author Author Jarod Dewey Organization 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 Name Role Phone RENETTA Dewey Unavailable PROBLEMS Type Condition ICD9-CM Code LAF62-BP Code Onset Dates Condition S tatus SNOMED Code Problem Impotence N52.9 Active 109832394 Problem Tobacco abuse counseling Z71.6 Activ e 439934793 Problem Sciatica, right side M54.31 Active 23725607 Problem Primary osteoarthritis of right hip M16.11 Active 552954509 Problem Prediabetes R73.09 Active 4613402 Problem Hyperlipidemia, unspecified E78.5 Ac tive 64047261 Problem Establishing care with new doctor, encounter for Z 71.89 Active 073823297 Problem Tobacco abuse Z72.0 Active 807604 05 Problem Hypertension I10 Active 0167649 3 Problem Other chronic pain G89.29 Active 8 [id number] ALLERGIES No Information ENCOUNTERS Encounter Location Date Diagnosis [place] [address] [place] [id number] [place] [id number] Feb, Hypertension I10 and Acute p ain of right shoulder M25.511 [place] [address] [facility] [id number] [address] [place] [id number] Feb, Acute pain of right shoulder M25.511 [place] [address] [facility] [id number] [address] [place] [id number] January, Onychomycosis B35.1 and Ingr own toenail of right foot L60.0 [place] [address] [facility] [id number] [address] [place] [phone] Sep, Right hip pain M25.551 and P rediabetes R73.09 [place] [address] [place] [id number] [address] [place] [id number] Aug, Right leg pain M79.604 and H ypertension I10 [place] [address] [address] Jul, [place] [address] [place] [id number] [place] [address] May, Hypertension I10 and Polyp o f colon, unspecified part of colon, unspecified type K63.5 [place] [address] [address] 10 Apr, 2018 Positive colorectal cancer s creening using Cologuard test R19.5 [place] [address] [address] Apr, [place] [address] [address] Feb, [place] [address] [address] Feb, Hyperlipidemia, unspecified E78.5 [place] [address] [address] 06 Feb, 2018 Prediabetes R73.09 ; Hyperte nsion I10 ; Colon cancer screening Z12.11 ; Hyperlipidemia, unspecified E78.5 ; Pain in right hip M25.551 and Viral warts, unspecified type B07.9 [place] [address] [place] [id number] [address] [place] [id number] Dec, Primary osteoarthritis of ri ght hip M16.11 [place] [address] [address] Nov, Primary osteoarthritis of ri ght hip M16.11 [place] [address] [place] [id number] [address] [place] [id number] Nov, Right leg pain M79.604 and H ypertension I10 [place] [address] [place] [address] [place] [id number] 08 Oct, 2017 [place] [address] [address] Sep, Prediabetes R73.09 ; Pre-op exam Z01.818 and Hypertension I10 [place] [address] [address] Jul, Other chronic pain G89.29 an d Pain in right hip M25.551 [place] [address] [place] [id number] [place] [address] 07 Jul, 2017 Elevated lipase R74.8 [place] [address] [address] Jul, [place] [address] [address] Jun, RUQ abdominal pain R10.11 [place] [address] [address] Jun, RUQ abdominal pain R10.11 an d Hematuria, unspecified type R31.9 [place] [address] [address] Jun, Right hip pain M25.551 [place] [address] [address] Jun, Prediabetes R73.03 ; Left fo ot pain M79.672 and Right hip pain M25.551 [facility] [address] [place] [id number] [place] [id number] Nov, Acute non-recurrent maxillar y sinusitis J01.00 [place] [address] [place] [id number] [place] [id number] Nov, Hypertension I10 ; Prediabet es R73.09 and Dyslipidemia 272.4 [place] [address] [address] Nov, Hypertension I10 ; Prediabet es R73.03 and Colon cancer screening Z12.11 [place] [address] [place] [id number] [place] [id number] Oct, Hypertension I10 [place] [address] [place] [id number] [place] [id number] Oct, [place] [address] [place] [id number] [place] [address] May, Strain of triceps tendon, ri ght, initial encounter S46.811A and Osteoarthritis of right knee, unspecified osteoarthritis type M17.9 [place] [address] [place] [id number] [place] [address] Apr, Elbow pain, right M25.521 an d Acute pain of right knee M25.561 [place] [address] [place] [address] Apr, [facility] [address] [place] [id number] [place] [address] Mar, Right elbow pain M25.521 [place] [address] [address] Mar, Hypertension I10 and Prediab etes R73.09 [place] [address] [place] [address] Nov, [place] [address] [place] [id number] [place] [address] Oct, Sciatica, right side M54.31 ; Establishing care with new doctor, encounter for Z71.89 ; Tobacco abuse Z72.0 ; Tobacco abuse counseling Z71.6 and Essential hypertension I10 [facility] [address] [place] [id number] [place] [phone] Oct, Lumbago M54.5 [place] [address] [place] [id number] [place] [address] Aug, Prediabetes R73.09 ; Hyperte nsion I10 and Impotence N52.9 [facility] [address] [place] [id number] [place] [id number] 08 May, 2015 Ingrowing nail, right great toe 703.0 [facility] [address] [place] [id number] [place] [id number] Mar, Dyslipidemia 272.4 [facility] [address] [place] [id number] [place] [phone] Mar, Prediabetes 790.29 [facility] [address] [place] [id number] [place] [id number] Feb, Prediabetes 790.29 and Impot ence of organic origin 607.84 [place] [address] [place] [id number] [place] [phone] Feb, [facility] [address] [place] [id number] [place] [phone] Feb, [facility] [address] [place] [id number] [place] [phone] Dec, Hypertension 401.9 ; Impoten ce due to erectile dysfunction 607.84 and Hyperglycemia 790.29 [facility] [address] [place] [id number] [place] [phone] Dec, [facility] [address] [facility] [id number] [address] [place] [phone] Dec, [facility] [address] [place] [id number] [place] [phone] Dec, [facility] [address] [place] [id number] [place] [phone] Nov, [facility] [address] [place] [id number] [place] [phone] Nov, [facility] [address] [place] [id number] [place] [address] [place] [address] Oct, [facility] [address] [id number] [address] [place] [address], [place] [address] Oct, [facility] [address] [id number] [address] [place] [address], [place] [address] Oct, [facility] [address] [id number] [address] [place] [address], [place] [address] Oct, [facility] [address] [id number] [address] [place] [address], [place] [address] Sep, [facility] [address] [id number] [address] [place] [address], [place] [address] Sep, [facility] [address] [id number] [address] [place] [address], [place] [address] Sep, [facility] [address] [id number] [address] [place] [address], [place] [address] Sep, [facility] [address] [id number] [address] [place] [address], [place] [address] Sep, [facility] [address] [id number] [address] [place] [address], [place] [address] Sep, [facility] [address] [id number] [address] [place] [address], [place] [address] Jul, [facility] [address] [id number] [address] [place] [address], [place] [address] Jul, [facility] [address] [id number] [address] [place] [address], [place] [address] Jul, [facility] [address] [id number] [address] [place] [address], [place] [address] Jul, [facility] [address] [id number] [address] [place] [address], [place] [address] Jul, [facility] [address] [id number] [address] [place] [address], [place] [address] Jul, [facility] [address] [id number] [address] [place] [address], [place] [address] Jun, [facility] [address] [id number] [address] [place] [address], [place] [address] Mar, [facility] [address] [id number] [address] [place] [address], [place] [address] Mar, [facility] [address] [id number] [address] [place] [address], [place] [address] Mar, [facility] [address] [id number] [address] [place] [address], [place] [address] Mar, [facility] [address] [id number] [address] [place] [address], [place] [address] Feb, [facility] [address] [id number] [address] [place] [address], [place] [address] Feb, [facility] [address] [id number] [address] [place] [address], [place] [address] Nov, [facility] [address] [id number] [address] [place] [address], [place] [address] Nov, [facility] [address] [id number] [address] [place] [address], [place] [address] May, [facility] [address] [id number] [address] [place] [address], [place] [address] Apr, [facility] [address] [id number] [address] [place] [address], [place] [address] January, [facility] [address] [id number] [address] [place] [address], [place] [address] Oct, [facility] [address] [id number] [address] [place] [address], [place] [address] Sep, [facility] [address] [id number] [address] [place] [address], [place] [address] Sep, [facility] [address] [id number] [address] [place] [address], [place] [address] Sep, [facility] [address] [id number] [address] [place] [address], [place] [address] Jul, [facility] [address] [id number] [address] [place] [address], [place] [address] Jul, [facility] [address] [id number] [address] [place] [address], [place] [address] Mar, [facility] [address] [id number] [address] [place] [address], [place] [address] Sep, [facility] [address] [id number] [address] [place] [address], [place] [address] Sep, [facility] [address] [id number] [address] [place] [address], [place] [address] Sep, [facility] [address] [id number] [address] [place] [address], [place] [address] Sep, [facility] [address] [id number] [address] [place] [address], [place] [address] 29 Aug, 2010 [facility] [address] [id number] [address] [place] [address], [place] [address] 20 Aug, 2010 [facility] [address] [id number] [address] [place] [address], [place] [address] 16 Aug, 2010 [facility] [address] [id number] [address] [place] [address], [place] [address] 15 Aug, 2010 [facility] [address] [id number] [address] [place] [address], [place] [address] 15 Aug, 2010 [facility] [address] [id number] [address] [place] [address], [place] [address] 02 Aug, 2010 [facility] [address] [id number] [address] [place] [address], [place] [address] Sep, [facility] [address] [id number] [address] [place] [address], [place] [address] 22 Aug, 2009 [facility] [address] [id number] [address] [place] [id number] Jul, [facility] [address] [facility] [id number] [address] [place] [address] Jun, [facility] [address] [facility] [id number] [address] [place] [phone] Jun, [facility] [address] [facility] [id number] [address] [place] [id number] May, IMMUNIZATIONS No Known Immunizations SOCIAL HISTORY [...]
--- OUTSIDE RECORDS SUMMARY | 2019-12-28 17:28 | XMS REPORT ---
Author Author Jarod Dewey Organization [facility] Address [address] [place] [address] Care Team Providers Care Newsperson Name Role Phone RENETTA Dewey Unavailable PROBLEMS Type Condition ICD9-CM Code LYE87-KF Code Onset Dates Condition S tatus SNOMED Code Problem Impotence N52.9 Active 129668361 Problem Tobacco abuse counseling Z71.6 Activ e 900160473 Problem Sciatica, right side M54.31 Active 45367174 Problem Primary osteoarthritis of right hip M16.11 Active 953697901 Problem Prediabetes R73.09 Active 0037889 Problem Hyperlipidemia, unspecified E78.5 Ac tive 79952761 Problem Establishing care with new doctor, encounter for Z 71.89 Active 686704801 Problem Tobacco abuse Z72.0 Active 025252 05 Problem Hypertension I10 Active 9266240 3 Problem Other chronic pain G89.29 Active 8 [id number] ALLERGIES No Information ENCOUNTERS Encounter Location Date Diagnosis [place] [address] [place] [id number] [place] [address] Feb, Hypertension I10 and Acute p ain of right shoulder M25.511 [place] [address] [facility] [id number] [address] [place] [address] Feb, Acute pain of right shoulder M25.511 [place] [address] [facility] [id number] [address] [place] [id number] January, Onychomycosis B35.1 and Ingr own toenail of right foot L60.0 [place] [address] [facility] [id number] [address] [place] [address] Sep, Right hip pain M25.551 and P rediabetes R73.09 [place] [address] [place] [id number] [address] [place] [address] Aug, Right leg pain M79.604 and H ypertension I10 [place] [address] [address] Jul, [place] [address] [place] [id number] [place] [address] May, Hypertension I10 and Polyp o f colon, unspecified part of colon, unspecified type K63.5 [place] [address] [address] 10 Apr, 2018 Positive colorectal cancer s creening using Cologuard test R19.5 [place] [address] [address] Apr, [place] [address] [address] Feb, [place] [address] [address] Feb, Hyperlipidemia, unspecified E78.5 [place] [address] [address] 06 Feb, 2018 Prediabetes R73.09 ; Hyperte nsion I10 ; Colon cancer screening Z12.11 ; Hyperlipidemia, unspecified E78.5 ; Pain in right hip M25.551 and Viral warts, unspecified type B07.9 [place] [address] [place] [id number] [address] [place] [address] Dec, Primary osteoarthritis of ri ght hip M16.11 [place] [address] [address] Nov, Primary osteoarthritis of ri ght hip M16.11 [place] [address] [place] [id number] [place] [address] Nov, Right leg pain M79.604 and H ypertension I10 [place] [address] [place] [id number] [place] [address] 08 Oct, 2017 [place] [address] [address] Sep, Prediabetes R73.09 ; Pre-op exam Z01.818 and Hypertension I10 [place] [address] [address] Jul, Other chronic pain G89.29 an d Pain in right hip M25.551 [place] [address] [place] [id number] [place] [address] 07 Jul, 2017 Elevated lipase R74.8 [place] [address] [address] Jul, [place] [address] [address] Jun, RUQ abdominal pain R10.11 [place] [address] [address] Jun, RUQ abdominal pain R10.11 an d Hematuria, unspecified type R31.9 [place] [address] [address] Jun, Right hip pain M25.551 [place] [address] [address] Jun, Prediabetes R73.03 ; Left fo ot pain M79.672 and Right hip pain M25.551 [facility] [address] [place] [id number] [place] [address] Nov, Acute non-recurrent maxillar y sinusitis J01.00 [place] [address] [place] [id number] [place] [address] Nov, Hypertension I10 ; Prediabet es R73.09 and Dyslipidemia 272.4 [place] [address] [address] Nov, Hypertension I10 ; Prediabet es R73.03 and Colon cancer screening Z12.11 [place] [address] [place] [id number] [place] [address] Oct, Hypertension I10 [place] [address] [place] [id number] [place] [address] Oct, [place] [address] [place] [id number] [place] [address] May, Strain of triceps tendon, ri ght, initial encounter S46.811A and Osteoarthritis of right knee, unspecified osteoarthritis type M17.9 [place] [address] [place] [id number] [place] [address] Apr, Elbow pain, right M25.521 an d Acute pain of right knee M25.561 [place] [address] [place] [address] Apr, [facility] [address] [place] [id number] [place] [address] Mar, Right elbow pain M25.521 [place] [address] [address] Mar, Hypertension I10 and Prediab etes R73.09 [place] [address] [place] [address] Nov, [place] [address] [place] [id number] [place] [address] Oct, Sciatica, right side M54.31 ; Establishing care with new doctor, encounter for Z71.89 ; Tobacco abuse Z72.0 ; Tobacco abuse counseling Z71.6 and Essential hypertension I10 [facility] [address] [place] [id number] [place] [address] Oct, Lumbago M54.5 [place] [address] [place] [id number] [place] [address] Aug, Prediabetes R73.09 ; Hyperte nsion I10 and Impotence N52.9 [facility] [address] [place] [id number] [place] [address] 08 May, 2015 Ingrowing nail, right great toe 703.0 [facility] [address] [place] [id number] [place] [address] Mar, Dyslipidemia 272.4 [facility] [address] [place] [id number] [place] [address] Mar, Prediabetes 790.29 [facility] [address] [place] [id number] [place] [address] Feb, Prediabetes 790.29 and Impot ence of organic origin 607.84 [place] [address] [place] [id number] [place] [address] Feb, [facility] [address] [place] [id number] [place] [address] Feb, [facility] [address] [place] [id number] [place] [address] Dec, Hypertension 401.9 ; Impoten ce due to erectile dysfunction 607.84 and Hyperglycemia 790.29 [facility] [address] [place] [id number] [place] [address] Dec, [facility] [address] [facility] [id number] [address] [place] [address] Dec, [facility] [address] [place] [id number] [place] [address] Dec, [facility] [address] [place] [id number] [place] [address] Nov, [facility] [address] [place] [id number] [place] [address] Nov, [facility] [address] [place] [id number] [place] [address] [place] [address] Oct, [facility] [address] [id number] [address] [place] [address], [place] [address] Oct, [facility] [address] [id number] [address] [place] [address], [place] [address] Oct, [facility] [address] [id number] [address] [place] [address], [place] [address] Oct, [facility] [address] [id number] [address] [place] [address], [place] [address] Sep, [facility] [address] [id number] [address] [place] [address], [place] [address] Sep, [facility] [address] [id number] [address] [place] [address], [place] [address] Sep, [facility] [address] [id number] [address] [place] [address], [place] [address] Sep, [facility] [address] [id number] [address] [place] [address], [place] [address] Sep, [facility] [address] [id number] [address] [place] [address], [place] [address] Sep, [facility] [address] [id number] [address] [place] [address], [place] [address] Jul, [facility] [address] [id number] [address] [place] [address], [place] [address] Jul, [facility] [address] [id number] [address] [place] [address], [place] [address] Jul, [facility] [address] [id number] [address] [place] [address], [place] [address] Jul, [facility] [address] [id number] [address] [place] [address], [place] [address] Jul, [facility] [address] [id number] [address] [place] [address], [place] [address] Jul, [facility] [address] [id number] [address] [place] [address], [place] [address] Jun, [facility] [address] [id number] [address] [place] [address], [place] [address] Mar, [facility] [address] [id number] [address] [place] [address], [place] [address] Mar, [facility] [address] [id number] [address] [place] [address], [place] [address] Mar, [facility] [address] [id number] [address] [place] [address], [place] [address] Mar, [facility] [address] [id number] [address] [place] [address], [place] [address] Feb, [facility] [address] [id number] [address] [place] [address], [place] [address] Feb, [facility] [address] [id number] [address] [place] [address], [place] [address] Nov, [facility] [address] [id number] [address] [place] [address], [place] [address] Nov, [facility] [address] [id number] [address] [place] [address], [place] [address] May, [facility] [address] [id number] [address] [place] [address], [place] [address] Apr, [facility] [address] [id number] [address] [place] [address], [place] [address] January, [facility] [address] [id number] [address] [place] [address], [place] [address] Oct, [facility] [address] [id number] [address] [place] [address], [place] [address] Sep, [facility] [address] [id number] [address] [place] [address], [place] [address] Sep, [facility] [address] [id number] [address] [place] [address], [place] [address] Sep, [facility] [address] [id number] [address] [place] [address], [place] [address] Jul, [facility] [address] [id number] [address] [place] [address], [place] [address] Jul, [facility] [address] [id number] [address] [place] [address], [place] [address] Mar, [facility] [address] [id number] [address] [place] [address], [place] [address] Sep, [facility] [address] [id number] [address] [place] [address], [place] [address] Sep, [facility] [address] [id number] [address] [place] [address], [place] [id number] Sep, [facility] [address] [id number] [address] [place] [address], [place] [address] Sep, [facility] [address] [id number] [address] [place] [address], [place] [address] 29 Aug, 2010 [facility] [address] [id number] [address] [place] [address], [place] [address] 20 Aug, 2010 [facility] [address] [id number] [address] [place] [address], [place] [id number] 16 Aug, 2010 [facility] [address] [id number] [address] [place] [address], [place] [address] 15 Aug, 2010 [facility] [address] [id number] [address] [place] [address], [place] [address] 15 Aug, 2010 [facility] [address] [id number] [address] [place] [address], [place] [address] 02 Aug, 2010 [facility] [address] [id number] [address] [place] [address], [place] [address] Sep, [facility] [address] [id number] [address] [place] [address], [place] [address] 22 Aug, 2009 [facility] [address] [id number] [address] [place] [id number] Jul, [facility] [address] [facility] [id number] [address] [place] [address] Jun, [facility] [address] [facility] [id number] [address] [place] [address] Jun, [facility] [address] [facility] [id number] [address] [place] [address] May, IMMUNIZATIONS No Known Immunizations SOCIAL HISTORY [...]
--- OUTSIDE RECORDS SUMMARY | 2019-12-28 17:28 | XMS REPORT ---
Author Author Jarod Li Doctor Organization [facility] Address Unknown Phone Unavailable Care Team Providers Care Seed Yeast Operator Name Role Phone Migration, Doctor Unavailable Unavailable PROBLEMS Type Condition ICD9-CM Code LEV46-LB Code Onset Dates Condition S tatus SNOMED Code Problem Impotence N52.9 Active 019149476 Problem Tobacco abuse counseling Z71.6 Activ e [id number] Problem Sciatica, right side M54.31 Active 90067456 Problem Primary osteoarthritis of right hip M16.11 Active 812533569 Problem Prediabetes R73.09 Active 7740276 Problem Hyperlipidemia, unspecified E78.5 Ac tive 84411207 Problem Establishing care with new doctor, encounter for Z 71.89 Active 005361614 Problem Tobacco abuse Z72.0 Active 015952 05 Problem Hypertension I10 Active 9870434 3 Problem Other chronic pain G89.29 Active 8 2305503 ALLERGIES No Information ENCOUNTERS Encounter Location Date Diagnosis [place] [address] [place] [id number] [place] [id number] Sep, Right hip pain M25.551 and P rediabetes R73.09 [place] [address] [place] [id number] [place] [phone] Aug, Right leg pain M79.604 and H ypertension I10 [place] [address] [place] [id number] [place] [phone] Jul, [place] [address] [place] [address] [id number] [place] [phone] May, Hypertension I10 and Polyp o f colon, unspecified part of colon, unspecified type K63.5 [place] [address] [place] [id number] [place] [phone] Apr, Positive colorectal cancer s creening using Cologuard test R19.5 [place] [address] [place] [id number] [place] [phone] Apr, [place] [address] [place] [id number] [place] [phone] Feb, [place] [address] [place] [id number] [place] [address] Feb, Hyperlipidemia, unspecified E78.5 [place] [address] [address] Feb, Prediabetes R73.09 ; Hyperte nsion I10 ; Colon cancer screening Z12.11 ; Hyperlipidemia, unspecified E78.5 ; Pain in right hip M25.551 and Viral warts, unspecified type B07.9 [place] [address] [place] [id number] [place] [address] Dec, Primary osteoarthritis of ri ght hip M16.11 [place] [address] [address] Nov, Primary osteoarthritis of ri ght hip M16.11 [place] [address] [place] [id number] [place] [address] Nov, Right leg pain M79.604 and H ypertension I10 [place] [address] [place] [address] Oct, [place] [address] [place] [id number] [place] [address] Sep, Prediabetes R73.09 ; Pre-op exam Z01.818 and Hypertension I10 [place] [address] [place] [id number] [place] [id number] 14 Jul, 2017 Other chronic pain G89.29 an d Pain in right hip M25.551 [place] [address] [place] [id number] [place] [phone] 07 Jul, 2017 Elevated lipase R74.8 [place] [address] [place] [address] [place] [address] Jul, [facility] [place] [address] [place] [address] Jun, RUQ abdominal pain R10.11 [facility] [place] [address] [place] [id number] [place] [address] Jun, RUQ abdominal pain R10.11 an d Hematuria, unspecified type R31.9 [place] [address] [address] Jun, Right hip pain M25.551 [place] [address] [address] Jun, Prediabetes R73.03 ; Left fo ot pain M79.672 and Right hip pain M25.551 [facility] [address] [place] [id number] [place] [phone] Nov, Acute non-recurrent maxillar y sinusitis J01.00 [place] [address] [place] [id number] [place] [address] Nov, Hypertension I10 ; Prediabet es R73.09 and Dyslipidemia 272.4 [place] [address] [place] [id number] [place] [address] Nov, Hypertension I10 ; Prediabet es R73.03 and Colon cancer screening Z12.11 [place] [address] [place] [id number] [place] [address] Oct, Hypertension I10 [place] [address] [place] [id number] [place] [address] Oct, [place] [address] [place] [id number] [place] [address] May, Strain of triceps tendon, ri ght, initial encounter S46.811A and Osteoarthritis of right knee, unspecified osteoarthritis type M17.9 [place] [address] [address] Apr, Elbow pain, right M25.521 an d Acute pain of right knee M25.561 [facility] [place] [address] [address] Apr, [facility] [address] [address] Mar, Right elbow pain M25.521 [facility] [place] [address] [address] Mar, Hypertension I10 and Prediab etes R73.09 [place] [address] [address] Nov, [place] [address] [address] Oct, Sciatica, right side M54.31 ; Establishing care with new doctor, encounter for Z71.89 ; Tobacco abuse Z72.0 ; Tobacco abuse counseling Z71.6 and Essential hypertension I10 [facility] [address] [address] Oct, Lumbago M54.5 [place] [address] [address] Aug, Prediabetes R73.09 ; Hyperte nsion I10 and Impotence N52.9 [place] [address] [address] May, Ingrowing nail, right great toe 703.0 [place] [address] [address] 16 Mar, 2015 Dyslipidemia 272.4 [place] [address] [address] 14 Mar, 2015 Prediabetes 790.29 [place] [address] [address] Feb, Prediabetes 790.29 and Impot ence of organic origin 607.84 [facility] [place] [address] [id number] [address] [place] [phone] Feb, [facility] [place] [address] [id number] [address] [place] [phone] Feb, [facility] [place] [address] [facility] [id number] [address] [place] [address] Dec, Hypertension 401.9 ; Impoten ce due to erectile dysfunction 607.84 and Hyperglycemia 790.29 [facility] [place] [address] [id number] [address] [place] [phone] Dec, [facility] [place] [address] [facility] [id number] [address] [place] [phone] Dec, [facility] [place] [address] [facility] [id number] [address] [place] [id number] Dec, [facility] [place] [address] [id number] [address] [place] [phone] Nov, [facility] [place] [address] [id number] [address] [place] [phone] Nov, [facility] [place] [address] [id number] [address] [place] [phone] Oct, [facility] [place] [address] [id number] [address] [place] [phone] Oct, [facility] [place] [address] [id number] [address] [place] [phone] Oct, [facility] [place] [address] [id number] [address] [place] [id number] Oct, [facility] [place] [address] [id number] [address] [place] [phone] Sep, [facility] [place] [address] [id number] [address] [place] [phone] Sep, [facility] [address] [id number] [address] [place] [address], [place] [address] Sep, [facility] [place] [facility] [address] [id number] [address] [place] [address], [place] [address] Sep, [facility] [address] [id number] [address] [place] [address], [place] [address] Sep, [facility] [place] [facility] [address] [id number] [address] [place] [address], [place] [address] Sep, [facility] [address] [id number] [address] [place] [address], [place] [address] Jul, [facility] [address] [id number] [address] [place] [address], [place] [address] Jul, [facility] [address] [id number] [address] [place] [address], [place] [address] Jul, [facility] [address] [id number] [address] [place] [address], [place] [address] Jul, [facility] [place] [facility] [address] [id number] [address] [place] [address], [place] [address] Jul, [facility] [place] [facility] [address] [id number] [address] [place] [address], [place] [address] Jul, [facility] [place] [facility] [address] [id number] [address] [place] [address], [place] [address] Jun, [facility] [place] [facility] [address] [id number] [address] [place] [address], [place] [address] Mar, [facility] [place] [facility] [address] [id number] [address] [place] [address], [place] [address] Mar, [facility] [place] [facility] [address] [id number] [address] [place] [address], [place] [address] Mar, [facility] [place] [facility] [address] [id number] [address] [place] [address], [place] [address] Mar, [facility] [place] [facility] [address] [id number] [address] [place] [address], [place] [address] Feb, [facility] [address] [id number] [address] [place] [address], [place] [address] Feb, [facility] [address] [id number] [address] [place] [address], [place] [address] Nov, [facility] [address] [id number] [address] [place] [address], [place] [address] Nov, [facility] [address] [id number] [address] [place] [address], [place] [address] May, [facility] [address] [id number] [address] [place] [address], [place] [address] Apr, [facility] [address] [id number] [address] [place] [address], [place] [address] January, [facility] [address] [id number] [address] [place] [address], [place] [address] Oct, [facility] [address] [id number] [address] [place] [address], [place] [address] Sep, [facility] [address] [id number] [address] [place] [address], [place] [address] Sep, [facility] [address] [id number] [address] [place] [address], [place] [address] Sep, [facility] [address] [id number] [address] [place] [address], [place] [address] Jul, [facility] [address] [id number] [address] [place] [address], [place] [address] Jul, [facility] [address] [id number] [address] [place] [address], [place] [address] Mar, [facility] [address] [id number] [address] [place] [address], [place] [address] Sep, [facility] [address] [id number] [address] [place] [address], [place] [address] Sep, [facility] [place] [address] [id number] [address] [place] [phone] Sep, [facility] [place] [address] [id number] [address] [place] [phone] Sep, [facility] [place] [address] [id number] [address] [place] [phone] Aug, [facility] [place] [address] [id number] [address] [place] [id number] Aug, [facility] [place] [address] [id number] [address] [place] [id number] Aug, [facility] [place] [address] [id number] [address] [place] [id number] Aug, [facility] [place] [address] [id number] [address] [place] [phone] Aug, [facility] [place] [address] [id number] [address] [place] [phone] Aug, [facility] [place] [address] [id number] [address] [place] [phone] Sep, [facility] [place] [address] [id number] [address] [place] [id number] Aug, [facility] [place] [address] [id number] [address] [place] [phone] Jul, [facility] [place] [address] [id number] [address] [place] [phone] Jun, [facility] [place] [address] [id number] [address] [place] [phone] Jun, [facility] [place] [address] [id number] [address] [place] [id number] May, IMMUNIZATIONS No Known Immunizations SOCIAL HISTORY Never Assessed REASON FOR VISIT EMR-[facility] PLAN OF CARE VITAL SIGNS MEDICATIONS Medication Instructions Dosage Frequency Start Date End Date Duration S tatus Lisinopril 40 mg 1 tablet by Oral route 1 time per day 2 3 Sep, 2014 Active Glucophage 500 mg 1 tablet by Oral route 2 times per day Sep, Active Viagra 100 mg 1 Tablet by Oral route 1 time per day [place] N take as needed Nov, Active RESULTS No Results PROCEDURES No Known procedures INSTRUCTIONS MEDICATIONS ADMINISTERED No Known Medications MEDICAL (GENERAL) HISTORY Type Description Date Medical History hypertension dx: 2008 Medical History hyperlipidemia Medical History prediabetes Surgical History Colonoscopy with polyps. FU in 1 year
--- OUTSIDE RECORDS SUMMARY | 2019-12-28 17:29 | XMS REPORT ---
Author Author Jarod MOE Organization [facility] Address [address] [place] [address] Care Team Providers Care Water Filtration Technician Name Role Phone PAULINA MOE Unavailable PROBLEMS Type Condition ICD9-CM Code ISW86-XT Code Onset Dates Condition S tatus SNOMED Code Problem Impotence N52.9 Active 723625171 Problem Sciatica, right side M54.31 Active 05986934 Problem Tobacco abuse counseling Z71.6 Activ e 192455975 Problem Prediabetes R73.09 Active 1459805 Problem Hyperlipidemia, unspecified E78.5 Ac tive 67502450 Problem Primary osteoarthritis of right hip M16.11 Active 695129321 Problem Tobacco abuse Z72.0 Active 233461 05 Problem Establishing care with new doctor, encounter for Z 71.89 Active 214039451 Problem Other chronic pain G89.29 Active 8 6548255 Problem Hypertension I10 Active 6919005 3 ALLERGIES No Known Allergies ENCOUNTERS Encounter Location Date Diagnosis [place] [address] [address] [facility] [id number] [address] [place] [address] May, Hypertension I10 and Polyp o f colon, unspecified part of colon, unspecified type K63.5 [facility] [address] [facility] [id number] [address] [place] [address] Apr, Positive colorectal cancer s creening using Cologuard test R19.5 [facility] [address] [facility] [id number] [address] [place] [address] Apr, [place] [address] [address] [facility] [id number] [address] [place] [address] Feb, [facility] [address] [facility] [id number] [address] [place] [address] Feb, Hyperlipidemia, unspecified E78.5 [place] [address] [address] [facility] [id number] [address] [place] [address] 06 Feb, 2018 Prediabetes R73.09 ; Hyperte nsion I10 ; Colon cancer screening Z12.11 ; Hyperlipidemia, unspecified E78.5 ; Pain in right hip M25.551 and Viral warts, unspecified type B07.9 [place] [address] [address] [facility] [id number] [address] [place] [address] Dec, Primary osteoarthritis of ri ght hip M16.11 [place] [address] [address] [facility] [id number] [address] [place] [address] Nov, Primary osteoarthritis of ri ght hip M16.11 [place] [address] [address] [facility] [id number] [address] [place] [address] Nov, Right leg pain M79.604 and H ypertension I10 [place] [address] [address] [facility] [id number] [address] [place] [address] Oct, [place] [address] [address] [facility] [id number] [address] [place] [address] Sep, Prediabetes R73.09 ; Pre-op exam Z01.818 and Hypertension I10 [place] [address] [address] [facility] [id number] [address] [place] [address] Jul, Other chronic pain G89.29 an d Pain in right hip M25.551 [place] [address] [address] [facility] [id number] [address] [place] [address] Jul, Elevated lipase R74.8 [place] [address] [address] [facility] [id number] [address] [place] [address] Jul, [place] [address] [address] [facility] [id number] [address] [place] [address] Jun, RUQ abdominal pain R10.11 [place] [address] [address] [facility] [id number] [address] [place] [address] Jun, RUQ abdominal pain R10.11 an d Hematuria, unspecified type R31.9 [place] [address] [id number] [address] [place] [address] Jun, Right hip pain M25.551 [place] [address] [facility] [id number] [address] [place] [address] 16 Jun, 2017 Prediabetes R73.03 ; Left fo ot pain M79.672 and Right hip pain M25.551 [facility] [address] [id number] [address] [place] [address] Nov, Acute non-recurrent maxillar y sinusitis J01.00 [place] [address] [address] [facility] [id number] [address] [place] [address] Nov, Hypertension I10 ; Prediabet es R73.09 and Dyslipidemia 272.4 [place] [address] [address] [facility] [id number] [address] [place] [address] Nov, Hypertension I10 ; Prediabet es R73.03 and Colon cancer screening Z12.11 [place] [address] [address] [facility] [id number] [address] [place] [address] Oct, Hypertension I10 [place] [address] [address] [facility] [id number] [address] [place] [address] Oct, [place] [address] [address] [facility] [id number] [address] [place] [address] May, Strain of triceps tendon, ri ght, initial encounter S46.811A and Osteoarthritis of right knee, unspecified osteoarthritis type M17.9 [place] [address] [facility] [id number] [address] [place] [address] Apr, Elbow pain, right M25.521 an d Acute pain of right knee M25.561 [place] [address] [address] [facility] [id number] [address] [place] [address] Apr, [facility] [address] [facility] [id number] [address] [place] [address] Mar, Right elbow pain M25.521 [facility] [address] [address] Mar, Hypertension I10 and Prediab etes R73.09 [facility] [address] [place] [id number] [address] [place] [address] Nov, [facility] [address] [address] Oct, Sciatica, right side M54.31 ; Establishing care with new doctor, encounter for Z71.89 ; Tobacco abuse Z72.0 ; Tobacco abuse counseling Z71.6 and Essential hypertension I10 [facility] [address] [place] [id number] [address] [place] [address] Oct, Lumbago M54.5 [place] [address] [address] Aug, Prediabetes R73.09 ; Hyperte nsion I10 and Impotence N52.9 [place] [address] [address] May, Ingrowing nail, right great toe 703.0 [place] [address] [address] [place] [id number] [address] [place] [address] 16 Mar, 2015 Dyslipidemia 272.4 [place] [address] [address] 14 Mar, 2015 Prediabetes 790.29 [place] [address] [address] [place] [id number] [address] [place] [address] 24 Feb, 2015 Prediabetes 790.29 and Impot ence of organic origin 607.84 [place] [address] [address] [place] [id number] [address] [place] [address] Feb, [place] [address] [address] Feb, [place] [address] [id number] [address] [place] [address] Dec, Hypertension 401.9 ; Impoten ce due to erectile dysfunction 607.84 and Hyperglycemia 790.29 [facility] [address] [id number] [address] [place] [address] Dec, [facility] [address] [id number] [address] [place] [address] Dec, [facility] [address] [id number] [address] [place] [address] Dec, [facility] [address] [id number] [address] [place] [address] Nov, [facility] [address] [id number] [address] [place] [address] Nov, [facility] [address] [id number] [address] [place] [address] Oct, [facility] [address] [id number] [address] [place] [address] Oct, [facility] [address] [id number] [address] [place] [address] Oct, [facility] [address] [id number] [address] [place] [address] Oct, [facility] [address] [id number] [address] [place] [address] Sep, [facility] [address] [id number] [address] [place] [address] Sep, [facility] [address] [id number] [address] [place] [address] Sep, [facility] [address] [id number] [address] [place] [address] Sep, [facility] [address] [id number] [address] [place] [address] Sep, [facility] [address] [id number] [address] [place] [address], [place] [address] Sep, [facility] [address] [id number] [address] [place] [address], [place] [address] Jul, [facility] [address] [id number] [address] [place] [address], [place] [address] Jul, [facility] [address] [id number] [address] [place] [address], [place] [address] Jul, [facility] [address] [id number] [address] [place] [address], [place] [address] Jul, [facility] [address] [id number] [address] [place] [address], [place] [address] Jul, [facility] [address] [id number] [address] [place] [address], [place] [address] Jul, [facility] [address] [id number] [address] [place] [address], [place] [address] Jun, [facility] [address] [id number] [address] [place] [address], [place] [address] Mar, [facility] [address] [id number] [address] [place] [address], [place] [address] Mar, [facility] [address] [id number] [address] [place] [address], [place] [address] Mar, [facility] [address] [id number] [address] [place] [address], [place] [address] Mar, [facility] [address] [id number] [address] [place] [address], [place] [address] Feb, [facility] [address] [id number] [address] [place] [address], [place] [address] Feb, [facility] [address] [id number] [address] [place] [address], [place] [address] Nov, [facility] [address] [id number] [address] [place] [address] [place] [address] Nov, [facility] [address] [id number] [address] [place] [address], [place] [address] May, [facility] [address] [id number] [address] [place] [address], [place] [address] Apr, [facility] [address] [id number] [address] [place] [address], [place] [address] January, [facility] [address] [id number] [address] [place] [address], [place] [address] Oct, [facility] [address] [id number] [address] [place] [address], [place] [address] Sep, [facility] [address] [id number] [address] [place] [address], [place] [address] Sep, [facility] [address] [id number] [address] [place] [address], [place] [address] Sep, [facility] [address] [id number] [address] [place] [address], [place] [address] Jul, [facility] [address] [id number] [address] [place] [address], [place] [address] Jul, [facility] [address] [id number] [address] [place] [address], [place] [address] Mar, [facility] [address] [id number] [address] [place] [address], [place] [address] Sep, [facility] [address] [id number] [address] [place] [address], [place] [address] Sep, [facility] [address] [id number] [address] [place] [address], [place] [address] Sep, [facility] [address] [id number] [address] [place] [address], [place] [address] Sep, [facility] [address] [id number] [address] [place] [address], [place] [address] Aug, [facility] [address] [id number] [address] [place] [address] Aug, [facility] [address] [id number] [address] [place] [address] 16 Aug, 2010 [facility] [address] [id number] [address] [place] [address] Aug, [facility] [address] [id number] [address] [place] [address] Aug, [facility] [address] [id number] [address] [place] [address] Aug, [facility] [address] [id number] [address] [place] [address] Sep, [facility] [address] [id number] [address] [place] [address] Aug, [facility] [address] [id number] [address] [place] [address] Jul, [facility] [address] [id number] [address] [place] [address] Jun, [facility] [address] [id number] [address] [place] [address] Jun, [facility] [address] [id number] [address] [place] [address] May, IMMUNIZATIONS No Known Immunizations SOCIAL HISTORY Never Assessed REASON FOR VISIT Blood Pressure- AB/MA PLAN OF CARE Activity Details Follow Up 6 Months Reason:BP and fasti ng labs VITAL SIGNS Height 70 in 2018-06-06 Weight 153 lbs 2018-06-06 Temperature 98.8 degrees Fahrenheit 2018-06-06 Heart Rate 77 bpm 2018-06-06 Respiratory Rate 20 2018-06-06 BMI 21.95 kg/m2 2018-06-06 Blood pressure systolic 108 mmHg 2018-06-06 Blood pressure diastolic 52 mmHg 2018-06-06 MEDICATIONS Medication Instructions Dosage Frequency Start Date End Date Duration S joy Amlodipine Besylate 10 mg Orally Once a day 1 tablet 24h Active Metformin HCl 500 mg TAKE ONE TABLET BY MOUTH TWICE DAILY 12h 90 days Active Lisinopril 40 mg Orally 1 TAB [...]
--- OUTSIDE RECORDS SUMMARY | 2019-12-28 17:29 | XMS REPORT ---
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 Name Role Phone PAULINA MOE Unavailable PROBLEMS Type Condition ICD9-CM Code MVB58-AJ Code Onset Dates Condition S tatus SNOMED Code Problem Impotence N52.9 Active 641200411 Problem Sciatica, right side M54.31 Active 44809165 Problem Tobacco abuse counseling Z71.6 Activ e 493721101 Problem Prediabetes R73.09 Active 2122407 Problem Hyperlipidemia, unspecified E78.5 Ac tive 78341658 Problem Primary osteoarthritis of right hip M16.11 Active 461608541 Problem Tobacco abuse Z72.0 Active 078926 05 Problem Establishing care with new doctor, encounter for Z 71.89 Active 332938153 Problem Other chronic pain G89.29 Active 8 7314991 Problem Hypertension I10 Active 3730937 3 ALLERGIES No Known Allergies ENCOUNTERS Encounter Location Date Diagnosis [place] [address] [facility] [id number] [address] [place] [address] Sep, [place] [address] [facility] [id number] [address] [place] [address] Aug, Right leg pain M79.604 and H ypertension I10 [place] [address] [facility] [id number] [address] [place] [address] Jul, [place] [address] [facility] [id number] [address] [place] [address] May, Hypertension I10 and Polyp o f colon, unspecified part of colon, unspecified type K63.5 [place] [id number] [facility] [id number] [address] [place] [address] Apr, Positive colorectal cancer s creening using Cologuard test R19.5 [place] [address] [facility] [id number] [address] [place] [address] Apr, [place] [address] [facility] [id number] [address] [place] [address] Feb, [place] [address] [place] [id number] [address] [place] [address] Feb, Hyperlipidemia, unspecified E78.5 [place] [address] [place] [id number] [address] [place] [address] Feb, Prediabetes R73.09 ; Hyperte nsion I10 ; Colon cancer screening Z12.11 ; Hyperlipidemia, unspecified E78.5 ; Pain in right hip M25.551 and Viral warts, unspecified type B07.9 [place] [address] [place] [id number] [address] [place] [address] Dec, Primary osteoarthritis of ri ght hip M16.11 [place] [address] [place] [id number] [address] [place] [address] Nov, Primary osteoarthritis of ri ght hip M16.11 [place] [address] [place] [id number] [address] [place] [address] Nov, Right leg pain M79.604 and H ypertension I10 [place] [address] [place] [id number] [address] [place] [address] Oct, [place] [address] [place] [id number] [address] [place] [address] Sep, Prediabetes R73.09 ; Pre-op exam Z01.818 and Hypertension I10 [place] [address] [place] [id number] [address] [place] [address] 14 Jul, 2017 Other chronic pain G89.29 an d Pain in right hip M25.551 [place] [address] [place] [id number] [address] [place] [address] 07 Jul, 2017 Elevated lipase R74.8 [facility] [address] [facility] [id number] [address] [place] [address] Jul, [facility] [address] [facility] [id number] [address] [place] [address] Jun, RUQ abdominal pain R10.11 [facility] [address] [facility] [id number] [address] [place] [address] Jun, RUQ abdominal pain R10.11 an d Hematuria, unspecified type R31.9 [place] [address] [facility] [id number] [address] [place] [address] Jun, Right hip pain M25.551 [place] [address] [facility] [id number] [address] [place] [address] Jun, Prediabetes R73.03 ; Left fo ot pain M79.672 and Right hip pain M25.551 [facility] [address] [facility] [id number] [address] [place] [address] Nov, Acute non-recurrent maxillar y sinusitis J01.00 [place] [address] [facility] [id number] [address] [place] [address] Nov, Hypertension I10 ; Prediabet es R73.09 and Dyslipidemia 272.4 [place] [address] [facility] [id number] [address] [place] [address] Nov, Hypertension I10 ; Prediabet es R73.03 and Colon cancer screening Z12.11 [facility] [address] [facility] [id number] [address] [place] [address] Oct, Hypertension I10 [place] [address] [facility] [id number] [address] [place] [address] Oct, [facility] [address] [facility] [id number] [address] [place] [address] May, Strain of triceps tendon, ri ght, initial encounter S46.811A and Osteoarthritis of right knee, unspecified osteoarthritis type M17.9 [facility] [address] [address] Apr, Elbow pain, right M25.521 an d Acute pain of right knee M25.561 [facility] [address] [address] Apr, [facility] [address] [address] Mar, Right elbow pain M25.521 [place] [address] [address] Mar, Hypertension I10 and Prediab etes R73.09 [place] [address] [address] Nov, [place] [address] [address] Oct, Sciatica, right side M54.31 ; Establishing care with new doctor, encounter for Z71.89 ; Tobacco abuse Z72.0 ; Tobacco abuse counseling Z71.6 and Essential hypertension I10 [facility] [address] [address] Oct, Lumbago M54.5 [place] [address] [address] Aug, Prediabetes R73.09 ; Hyperte nsion I10 and Impotence N52.9 [place] [address] [address] May, Ingrowing nail, right great toe 703.0 [place] [address] [address] Mar, Dyslipidemia 272.4 [place] [address] [address] 14 Mar, 2015 Prediabetes 790.29 [place] [address] [id number] [address] [place] [address] 24 Feb, 2015 Prediabetes 790.29 and Impot ence of organic origin 607.84 [facility] [address] [id number] [address] [place] [address] Feb, [facility] [address] [facility] [id number] [address] [place] [address] Feb, [facility] [address] [facility] [id number] [address] [place] [address] Dec, Hypertension 401.9 ; Impoten ce due to erectile dysfunction 607.84 and Hyperglycemia 790.29 [facility] [address] [id number] [address] [place] [address] Dec, [facility] [address] [facility] [id number] [address] [place] [address] Dec, [facility] [address] [facility] [id number] [address] [place] [address] Dec, [facility] [address] [facility] [id number] [address] [place] [address] Nov, [facility] [address] [facility] [id number] [address] [place] [address] Nov, [facility] [address] [facility] [id number] [address] [place] [address] Oct, [facility] [address] [id number] [address] [place] [address] Oct, [facility] [address] [id number] [address] [place] [address] Oct, [facility] [address] [id number] [address] [place] [address] Oct, [facility] [address] [facility] [id number] [address] [place] [address] Sep, [facility] [address] [id number] [address] [place] [address], [place] [address] Sep, [facility] [address] [id number] [address] [place] [address], [place] [address] Sep, [facility] [address] [id number] [address] [place] [address], [place] [address] Sep, [facility] [address] [id number] [address] [place] [address], [place] [address] Sep, [facility] [address] [id number] [address] [place] [address], [place] [address] Sep, [facility] [address] [id number] [address] [place] [address], [place] [address] Jul, [facility] [address] [id number] [address] [place] [address], [place] [address] Jul, [facility] [address] [id number] [address] [place] [address], [place] [address] Jul, [facility] [address] [id number] [address] [place] [address], [place] [address] Jul, [facility] [address] [id number] [address] [place] [address], [place] [address] Jul, [facility] [address] [id number] [address] [place] [address], [place] [address] Jul, [facility] [address] [id number] [address] [place] [address], [place] [address] Jun, [facility] [address] [id number] [address] [place] [address], [place] [address] Mar, [facility] [address] [id number] [address] [place] [address], [place] [address] Mar, [facility] [address] [id number] [address] [place] [address], [place] [address] Mar, [facility] [address] [id number] [address] [place] [address], [place] [address] Mar, [facility] [address] [id number] [address] [place] [address], [place] [address] Feb, [facility] [address] [id number] [address] [place] [address], [place] [address] Feb, [facility] [address] [id number] [address] [place] [address], [place] [address] Nov, [facility] [address] [id number] [address] [place] [address], [place] [address] Nov, [facility] [address] [id number] [address] [place] [address], [place] [address] May, [facility] [address] [id number] [address] [place] [address], [place] [address] Apr, [facility] [address] [id number] [address] [place] [address], [place] [address] January, [facility] [address] [id number] [address] [place] [address], [place] [address] Oct, [facility] [address] [id number] [address] [place] [address], [place] [address] Sep, [facility] [address] [id number] [address] [place] [address], [place] [address] Sep, [facility] [address] [id number] [address] [place] [address], [place] [address] Sep, [facility] [address] [id number] [address] [place] [address], [place] [address] Jul, [facility] [address] [id number] [address] [place] [address], [place] [address] Jul, [facility] [address] [id number] [address] [place] [address], [place] [address] Mar, [facility] [address] [id number] [address] [place] [address], [place] [address] Sep, [facility] [address] [id number] [address] [place] [address] Sep, [facility] [address] [id number] [address] [place] [address] Sep, [facility] [address] [id number] [address] [place] [address] Sep, [facility] [address] [id number] [address] [place] [address] 29 Aug, 2010 [facility] [address] [id number] [address] [place] [address] Aug, [facility] [address] [id number] [address] [place] [address] 16 Aug, 2010 [facility] [address] [id number] [address] [place] [address] Aug, [facility] [address] [id number] [address] [place] [address] Aug, [facility] [address] [id number] [address] [place] [address] Aug, [facility] [address] [id number] [address] [place] [address] Sep, [facility] [address] [id number] [address] [place] [address] Aug, [facility] [address] [id number] [address] [place] [address] Jul, [facility] [address] [id number] [address] [place] [address] Jun, [facility] [address] [id number] [address] [place] [address] Jun, [facility] [address] [id number] [address] [place] [address] May, IMMUNIZATIONS No Known Immunizations SOCIAL HISTORY Never Assessed REASON FOR VISIT f/u Pt in for follow up CHARITY Hahn PLAN OF CARE Activity Details Follow Up 6 Months Reason:BP and fasti ng labs VITAL SIGNS Height 70 in 2018-09-07 Weight 154.8 lbs 2018-09-07 Temperature 98.2 degrees Fahrenheit 2018-09-07 Heart Rate 82 bpm 2018-09-07 Respiratory Rate 18 2018-09-07 BMI 22.21 kg/m2 2018-09-07 Blood pressure systolic 124 mmHg 2018-09-07 Blood pressure diastolic 76 mmHg 2018-09-07 MEDICATIONS Medication Instructions Dosage Frequency Start Date End Date Duration S tatus Flagyl 500 MG Orally at one time 4 tablets 1 dos e Not-Taking Metformin HCl 500 mg TAKE ONE TABLET [...]
--- OUTSIDE RECORDS SUMMARY | 2019-12-28 17:29 | XMS REPORT ---
Author Author Jarod MOE Organization [facility] Address [address] [place] [address] Care Team Providers Care Plate Driller Name Role Phone PAULINA MOE Unavailable PROBLEMS Type Condition ICD9-CM Code [id number] Code Onset Dates Condition S tatus SNOMED Code Problem Impotence N52.9 Active 132963011 Problem Sciatica, right side M54.31 Active 98148276 Problem Tobacco abuse counseling Z71.6 Activ e 408040477 Problem Prediabetes R73.09 Active 9927540 Problem Hyperlipidemia, unspecified E78.5 Ac tive 05747860 Problem Primary osteoarthritis of right hip M16.11 Active 617201786 Problem Tobacco abuse Z72.0 Active 028272 05 Problem Establishing care with new doctor, encounter for Z 71.89 Active 347993761 Problem Other chronic pain G89.29 Active 8 4781055 Problem Hypertension I10 Active 8629155 3 ALLERGIES No Information ENCOUNTERS Encounter Location Date Diagnosis [place] [address] [address] [facility] [place] [id number] [address] [place] [phone] May, Hypertension I10 and Polyp o f colon, unspecified part of colon, unspecified type K63.5 [facility] [address] [facility] [place] [id number] [address] [place] [phone] Apr, Positive colorectal cancer s creening using Cologuard test R19.5 [facility] [address] [facility] [place] [id number] [address] [place] [phone] Apr, [facility] [address] [facility] [place] [id number] [address] [place] [phone] Feb, [facility] [address] [facility] [place] [id number] [address] [place] [phone] Feb, Hyperlipidemia, unspecified E78.5 [place] [address] [address] [facility] [place] [facility] [id number] [address] [place] [phone] Feb, Prediabetes R73.09 ; Hyperte nsion I10 ; Colon cancer screening Z12.11 ; Hyperlipidemia, unspecified E78.5 ; Pain in right hip M25.551 and Viral warts, unspecified type B07.9 [place] [address] [address] [facility] [place] [id number] [address] [place] [phone] Dec, Primary osteoarthritis of ri ght hip M16.11 [place] [address] [address] [facility] [place] [facility] [id number] [address] [place] [phone] Nov, Primary osteoarthritis of ri ght hip M16.11 [place] [address] [address] [facility] [place] [id number] [address] [place] [phone] Nov, Right leg pain M79.604 and H ypertension I10 [place] [address] [facility] [place] [id number] [address] [place] [phone] Oct, [place] [address] [address] [facility] [place] [id number] [address] [place] [address] Sep, Prediabetes R73.09 ; Pre-op exam Z01.818 and Hypertension I10 [place] [address] [address] [facility] [place] [facility] [id number] [address] [place] [phone] 14 Jul, 2017 Other chronic pain G89.29 an d Pain in right hip M25.551 [place] [address] [address] [facility] [place] [facility] [id number] [address] [place] [address] Jul, Elevated lipase R74.8 [place] [address] [address] [facility] [place] [facility] [id number] [address] [place] [phone] Jul, [place] [address] [address] [facility] [place] [id number] [address] [place] [phone] Jun, RUQ abdominal pain R10.11 [place] [address] [address] [facility] [place] [facility] [id number] [address] [place] [phone] Jun, RUQ abdominal pain R10.11 an d Hematuria, unspecified type R31.9 [place] [address] [id number] [address] [place] [phone] Jun, Right hip pain M25.551 [facility] [address] [facility] [place] [place] [id number] [address] [place] [phone] Jun, Prediabetes R73.03 ; Left fo ot pain M79.672 and Right hip pain M25.551 [facility] [address] [id number] [address] [place] [phone] Nov, Acute non-recurrent maxillar y sinusitis J01.00 [place] [address] [address] [facility] [place] [id number] [address] [place] [phone] Nov, Hypertension I10 ; Prediabet es R73.09 and Dyslipidemia 272.4 [place] [address] [address] [facility] [place] [id number] [address] [place] [phone] Nov, Hypertension I10 ; Prediabet es R73.03 and Colon cancer screening Z12.11 [place] [address] [address] [facility] [place] [id number] [address] [place] [phone] Oct, Hypertension I10 [place] [address] [facility] [place] [id number] [address] [place] [phone] Oct, [place] [address] [address] [facility] [place] [id number] [address] [place] [address] May, Strain of triceps tendon, ri ght, initial encounter S46.811A and Osteoarthritis of right knee, unspecified osteoarthritis type M17.9 [place] [address] [address] [facility] [place] [id number] [address] [place] [address] Apr, Elbow pain, right M25.521 an d Acute pain of right knee M25.561 [place] [address] [address] [facility] [place] [id number] [address] [place] [phone] Apr, [facility] [address] [facility] [place] [id number] [address] [place] [address] Mar, Right elbow pain M25.521 [facility] [address] [place] [id number] [address] [place] [phone] Mar, Hypertension I10 and Prediab etes R73.09 [facility] [address] [place] [id number] [address] [place] [phone] Nov, [facility] [address] [address] Oct, Sciatica, right side M54.31 ; Establishing care with new doctor, encounter for Z71.89 ; Tobacco abuse Z72.0 ; Tobacco abuse counseling Z71.6 and Essential hypertension I10 [facility] [address] [address] Oct, Lumbago M54.5 [place] [address] [address] Aug, Prediabetes R73.09 ; Hyperte nsion I10 and Impotence N52.9 [place] [address] [address] May, Ingrowing nail, right great toe 703.0 [place] [address] [address] [place] [id number] [address] [place] [address] 16 Mar, 2015 Dyslipidemia 272.4 [place] [address] [phone] 14 Mar, 2015 Prediabetes 790.29 [place] [address] [address] [place] [id number] [address] [place] [phone] 24 Feb, 2015 Prediabetes 790.29 and Impot ence of organic origin 607.84 [place] [address] [address] [place] [id number] [address] [place] [phone] Feb, [facility] [address] [id number] Feb, [place] [address] [id number] [address] [place] [phone] Dec, Hypertension 401.9 ; Impoten ce due to erectile dysfunction 607.84 and Hyperglycemia 790.29 [facility] [address] [id number] [address] [place] [phone] 28 Dec, 2014 [facility] [address] [id number] [address] [place] [phone] Dec, [facility] [address] [id number] [address] [place] [phone] Dec, [facility] [address] [id number] [address] [place] [phone] Nov, [facility] [address] [id number] [address] [place] [phone] Nov, [facility] [address] [id number] [address] [place] [phone] Oct, [facility] [address] [id number] [address] [place] [phone] Oct, [facility] [address] [id number] [address] [place] [phone] Oct, [facility] [address] [id number] [address] [place] [phone] Oct, [facility] [address] [id number] [address] [place] [phone] Sep, [facility] [address] [id number] [address] [place] [phone] Sep, [facility] [address] [id number] [address] [place] [phone] Sep, [facility] [address] [id number] [address] [place] [phone] Sep, [facility] [address] [id number] [address] [place] [phone] Sep, [facility] [address] [id number] [address] [place] [address], [place] [address] Sep, [facility] [address] [id number] [address] [place] [address], [place] [address] Jul, [facility] [address] [id number] [address] [place] [address], [place] [address] Jul, [facility] [address] [id number] [address] [place] [address], [place] [address] Jul, [facility] [address] [id number] [address] [place] [address], [place] [address] Jul, [facility] [address] [id number] [address] [place] [address], [place] [address] Jul, [facility] [address] [id number] [address] [place] [address], [place] [address] Jul, [facility] [address] [id number] [address] [place] [address], [place] [address] Jun, [facility] [address] [id number] [address] [place] [address], [place] [address] Mar, [facility] [address] [id number] [address] [place] [address], [place] [address] Mar, [facility] [address] [id number] [address] [place] [address], [place] [address] Mar, [facility] [address] [id number] [address] [place] [phone] Mar, [facility] [address] [id number] [address] [place] [address], [place] [address] Feb, [facility] [address] [id number] [address] [place] [address], [place] [address] Feb, [facility] [address] [id number] [address] [place] [address], [place] [address] Nov, [facility] [address] [id number] [address] [place] [phone] Nov, [facility] [address] [id number] [address] [place] [address], [place] [address] May, [facility] [address] [id number] [address] [place] [address], [place] [address] Apr, [facility] [address] [id number] [address] [place] [address], [place] [address] January, [facility] [address] [id number] [address] [place] [address], [place] [address] Oct, [facility] [address] [id number] [address] [place] [address], [place] [address] Sep, [facility] [address] [id number] [address] [place] [address], [place] [address] Sep, [facility] [address] [id number] [address] [place] [address], [place] [address] Sep, [facility] [address] [id number] [address] [place] [address], [place] [address] Jul, [facility] [address] [id number] [address] [place] [address], [place] [address] Jul, [facility] [address] [id number] [address] [place] [address], [place] [address] Mar, [facility] [address] [id number] [address] [place] [address], [place] [address] Sep, [facility] [address] [id number] [address] [place] [address], [place] [address] Sep, [facility] [address] [id number] [address] [place] [address], [place] [address] Sep, [facility] [address] [id number] [address] [place] [address], [place] [address] Sep, [facility] [address] [id number] [address] [place] [address], [place] [address] Aug, [facility] [address] [id number] [address] [place] [phone] Aug, [facility] [address] [id number] [address] [place] [id number] 16 Aug, 2010 [facility] [address] [id number] [address] [place] [phone] Aug, [facility] [address] [id number] [address] [place] [phone] Aug, [facility] [address] [id number] [address] [place] [phone] Aug, [facility] [address] [id number] [address] [place] [phone] Sep, [facility] [address] [id number] [address] [place] [phone] Aug, [facility] [address] [id number] [address] [place] [phone] Jul, [facility] [address] [id number] [address] [place] [phone] Jun, [facility] [address] [id number] [address] [place] [id number] Jun, [facility] [address] [id number] [address] [place] [phone] May, IMMUNIZATIONS No Known Immunizations SOCIAL HISTORY Never Assessed REASON FOR VISIT Cologuard Results PLAN OF CARE VITAL SIGNS MEDICATIONS No Known Medications RESULTS No Results PROCEDURES No Known procedures INSTRUCTIONS MEDICATIONS ADMINISTERED No Known Medications MEDICAL (GENERAL) HISTORY Type Description Date Medical History hypertension dx: 2008 Medical History hyperlipidemia Medical History prediabetes Surgical History No Surgical history information
--- OUTSIDE RECORDS SUMMARY | 2019-12-28 17:29 | XMS REPORT ---
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 Name Role Phone PAULINA MOE Unavailable PROBLEMS Type Condition ICD9-CM Code QPD46-VJ Code Onset Dates Condition S tatus SNOMED Code Problem Impotence N52.9 Active 714936558 Problem Sciatica, right side M54.31 Active 17844209 Problem Tobacco abuse counseling Z71.6 Activ e 416444872 Problem Prediabetes R73.09 Active 3872655 Problem Hyperlipidemia, unspecified E78.5 Ac tive 25135475 Problem Primary osteoarthritis of right hip M16.11 Active 715729440 Problem Tobacco abuse Z72.0 Active 268752 05 Problem Establishing care with new doctor, encounter for Z 71.89 Active 513870673 Problem Other chronic pain G89.29 Active 8 9738374 Problem Hypertension I10 Active 0512368 3 ALLERGIES No Information ENCOUNTERS Encounter Location Date Diagnosis [place] [address] [address] [facility] [id number] [address] [place] [address] May, Hypertension I10 and Polyp o f colon, unspecified part of colon, unspecified type K63.5 [facility] [address] [facility] [id number] [address] [place] [address] Apr, Positive colorectal cancer s creening using Cologuard test R19.5 [facility] [address] [facility] [id number] [address] [place] [address] Apr, [facility] [address] [facility] [id number] [address] [place] [address] Feb, [facility] [address] [facility] [id number] [address] [place] [address] Feb, Hyperlipidemia, unspecified E78.5 [place] [address] [address] [facility] [id number] [address] [place] [address] Feb, Prediabetes R73.09 ; Hyperte nsion I10 ; Colon cancer screening Z12.11 ; Hyperlipidemia, unspecified E78.5 ; Pain in right hip M25.551 and Viral warts, unspecified type B07.9 [place] [address] [address] [facility] [id number] [address] [place] [address] Dec, Primary osteoarthritis of ri ght hip M16.11 [place] [address] [address] [facility] [id number] [address] [place] [address] Nov, Primary osteoarthritis of ri ght hip M16.11 [place] [address] [facility] [id number] [address] [place] [address] Nov, Right leg pain M79.604 and H ypertension I10 [place] [address] [facility] [id number] [address] [place] [address] Oct, [place] [address] [address] [facility] [id number] [address] [place] [address] Sep, Prediabetes R73.09 ; Pre-op exam Z01.818 and Hypertension I10 [place] [address] [address] [facility] [id number] [address] [place] [address] 14 Jul, 2017 Other chronic pain G89.29 an d Pain in right hip M25.551 [place] [address] [address] [facility] [id number] [address] [place] [address] Jul, Elevated lipase R74.8 [place] [address] [address] [facility] [id number] [address] [place] [address] Jul, [place] [address] [address] [facility] [id number] [address] [place] [address] Jun, RUQ abdominal pain R10.11 [place] [address] [facility] [id number] [address] [place] [address] Jun, RUQ abdominal pain R10.11 an d Hematuria, unspecified type R31.9 [place] [id number] [id number] [address] [place] [address] Jun, Right hip pain M25.551 [facility] [address] [facility] [id number] [address] [place] [address] Jun, Prediabetes R73.03 ; Left fo ot pain M79.672 and Right hip pain M25.551 [facility] [address] [id number] [address] [place] [address] Nov, Acute non-recurrent maxillar y sinusitis J01.00 [place] [address] [address] [facility] [id number] [address] [place] [address] Nov, Hypertension I10 ; Prediabet es R73.09 and Dyslipidemia 272.4 [place] [address] [address] [facility] [id number] [address] [place] [address] Nov, Hypertension I10 ; Prediabet es R73.03 and Colon cancer screening Z12.11 [place] [address] [address] [facility] [id number] [address] [place] [address] Oct, Hypertension I10 [place] [address] [address] [facility] [id number] [address] [place] [address] Oct, [place] [address] [address] [facility] [id number] [address] [place] [address] May, Strain of triceps tendon, ri ght, initial encounter S46.811A and Osteoarthritis of right knee, unspecified osteoarthritis type M17.9 [place] [address] [address] [facility] [id number] [address] [place] [address] Apr, Elbow pain, right M25.521 an d Acute pain of right knee M25.561 [place] [address] [address] [facility] [id number] [address] [place] [address] Apr, [facility] [address] [facility] [id number] [address] [place] [address] Mar, Right elbow pain M25.521 [facility] [address] [place] [id number] [address] [place] [address] Mar, Hypertension I10 and Prediab etes R73.09 [facility] [address] [place] [id number] [address] [place] [address] Nov, [facility] [address] [address] Oct, Sciatica, right side M54.31 ; Establishing care with new doctor, encounter for Z71.89 ; Tobacco abuse Z72.0 ; Tobacco abuse counseling Z71.6 and Essential hypertension I10 [facility] [address] [address] Oct, Lumbago M54.5 [place] [address] [address] Aug, Prediabetes R73.09 ; Hyperte nsion I10 and Impotence N52.9 [place] [address] [address] May, Ingrowing nail, right great toe 703.0 [place] [address] [address] [place] [id number] [address] [place] [address] 16 Mar, 2015 Dyslipidemia 272.4 [place] [address] [address] 14 Mar, 2015 Prediabetes 790.29 [place] [address] [address] [place] [id number] [address] [place] [address] 24 Feb, 2015 Prediabetes 790.29 and Impot ence of organic origin 607.84 [place] [address] [address] [place] [id number] [address] [place] [address] Feb, [facility] [address] [address] Feb, [place] [address] [id number] [address] [place] [address] Dec, Hypertension 401.9 ; Impoten ce due to erectile dysfunction 607.84 and Hyperglycemia 790.29 [facility] [address] [id number] [address] [place] [address] 28 Dec, 2014 [facility] [address] [id number] [address] [place] [address] Dec, [facility] [address] [id number] [address] [place] [address] Dec, [facility] [address] [id number] [address] [place] [address] Nov, [facility] [address] [id number] [address] [place] [address] Nov, [facility] [address] [id number] [address] [place] [address] Oct, [facility] [address] [id number] [address] [place] [address] Oct, [facility] [address] [id number] [address] [place] [address] Oct, [facility] [address] [id number] [address] [place] [address] Oct, [facility] [address] [id number] [address] [place] [address] Sep, [facility] [address] [id number] [address] [place] [address] Sep, [facility] [address] [id number] [address] [place] [address] Sep, [facility] [address] [id number] [address] [place] [address] Sep, [facility] [address] [id number] [address] [place] [address] Sep, [facility] [address] [id number] [address] [place] [address], [place] [address] Sep, [facility] [address] [id number] [address] [place] [address], [place] [address] Jul, [facility] [address] [id number] [address] [place] [address], [place] [address] Jul, [facility] [address] [id number] [address] [place] [address], [place] [address] Jul, [facility] [address] [id number] [address] [place] [address], [place] [address] Jul, [facility] [address] [id number] [address] [place] [address], [place] [address] Jul, [facility] [address] [id number] [address] [place] [address], [place] [address] Jul, [facility] [address] [id number] [address] [place] [address], [place] [address] Jun, [facility] [address] [id number] [address] [place] [address], [place] [address] Mar, [facility] [address] [id number] [address] [place] [address], [place] [address] Mar, [facility] [address] [id number] [address] [place] [address], [place] [address] Mar, [facility] [address] [id number] [address] [place] [address] Mar, [facility] [address] [id number] [address] [place] [address], [place] [address] Feb, [facility] [address] [id number] [address] [place] [address], [place] [address] Feb, [facility] [address] [id number] [address] [place] [address], [place] [address] Nov, [facility] [address] [id number] [address] [place] [address] Nov, [facility] [address] [id number] [address] [place] [address], [place] [address] May, [facility] [address] [id number] [address] [place] [address], [place] [address] Apr, [facility] [address] [id number] [address] [place] [address], [place] [address] January, [facility] [address] [id number] [address] [place] [address], [place] [address] Oct, [facility] [address] [id number] [address] [place] [address], [place] [address] Sep, [facility] [address] [id number] [address] [place] [address], [place] [address] Sep, [facility] [address] [id number] [address] [place] [address], [place] [address] Sep, [facility] [address] [id number] [address] [place] [address], [place] [address] Jul, [facility] [address] [id number] [address] [place] [address], [place] [address] Jul, [facility] [address] [id number] [address] [place] [address], [place] [address] Mar, [facility] [address] [id number] [address] [place] [address], [place] [address] Sep, [facility] [address] [id number] [address] [place] [address], [place] [address] Sep, [facility] [address] [id number] [address] [place] [address], [place] [address] Sep, [facility] [address] [id number] [address] [place] [address], [place] [address] Sep, [facility] [address] [id number] [address] [place] [address], [place] [address] Aug, [facility] [address] [id number] [address] [place] [address] Aug, [facility] [address] [id number] [address] [place] [address] 16 Aug, 2010 [facility] [address] [id number] [address] [place] [address] Aug, [facility] [address] [id number] [address] [place] [address] Aug, [facility] [address] [id number] [address] [place] [address] Aug, [facility] [address] [id number] [address] [place] [address] Sep, [facility] [address] [id number] [address] [place] [address] Aug, [facility] [address] [id number] [address] [place] [address] Jul, [facility] [address] [id number] [address] [place] [address] Jun, [facility] [address] [id number] [address] [place] [address] Jun, [facility] [address] [id number] [address] [place] [address] May, IMMUNIZATIONS No Known Immunizations SOCIAL HISTORY Never Assessed REASON FOR VISIT Lab results PLAN OF CARE VITAL SIGNS MEDICATIONS No Known Medications RESULTS No Results PROCEDURES No Known procedures INSTRUCTIONS MEDICATIONS ADMINISTERED No Known Medications MEDICAL (GENERAL) HISTORY Type Description Date Medical History hypertension dx: 2008 Medical History hyperlipidemia Medical History prediabetes Surgical History No Surgical history information
--- OUTSIDE RECORDS SUMMARY | 2019-12-28 17:29 | XMS REPORT ---
Author Author Jarod MOE Organization [facility] Address [address] [place] [address] Care Team Providers Care [employer] Name Role Phone PAULINA MOE Unavailable PROBLEMS Type Condition ICD9-CM Code XLX23-MY Code Onset Dates Condition S tatus SNOMED Code Problem Impotence N52.9 Active 522919441 Problem Sciatica, right side M54.31 Active 37991694 Problem Tobacco abuse counseling Z71.6 Activ e 707531996 Problem Prediabetes R73.09 Active 2885911 Problem Hyperlipidemia, unspecified E78.5 Ac tive 20468379 Problem Primary osteoarthritis of right hip M16.11 Active 496617051 Problem Tobacco abuse Z72.0 Active 194216 05 Problem Establishing care with new doctor, encounter for Z 71.89 Active 031434484 Problem Other chronic pain G89.29 Active 8 3823703 Problem Hypertension I10 Active 8405274 3 ALLERGIES No Information ENCOUNTERS Encounter Location Date Diagnosis [place] [address] [address] [facility] [id number] [address] [place] [address] Jul, [place] [address] [address] [place] [id number] [address] [place] [address] May, Hypertension I10 and Polyp o f colon, unspecified part of colon, unspecified type K63.5 [facility] [address] [facility] [id number] [address] [place] [address] Apr, Positive colorectal cancer s creening using Cologuard test R19.5 [facility] [address] [facility] [id number] [address] [place] [address] Apr, [facility] [address] [place] [id number] [address] [place] [address] Feb, [place] [address] [place] [address] 12 Feb, 2018 Hyperlipidemia, unspecified E78.5 [place] [address] [place] [id number] [address] [place] [address] Feb, Prediabetes R73.09 ; Hyperte nsion I10 ; Colon cancer screening Z12.11 ; Hyperlipidemia, unspecified E78.5 ; Pain in right hip M25.551 and Viral warts, unspecified type B07.9 [place] [address] [address] [place] [id number] [address] [place] [address] Dec, Primary osteoarthritis of ri ght hip M16.11 [place] [address] [place] [id number] [address] [place] [address] Nov, Primary osteoarthritis of ri ght hip M16.11 [place] [address] [address] Nov, Right leg pain M79.604 and H ypertension I10 [place] [address] [place] [address] Oct, [place] [address] [place] [id number] [address] [place] [address] Sep, Prediabetes R73.09 ; Pre-op exam Z01.818 and Hypertension I10 [place] [address] [address] [place] [id number] [address] [place] [address] 14 Jul, 2017 Other chronic pain G89.29 an d Pain in right hip M25.551 [place] [address] [address] [place] [id number] [address] [place] [address] 07 Jul, 2017 Elevated lipase R74.8 [place] [address] [place] [id number] [address] [place] [address] 03 Jul, 2017 [place] [address] [place] [id number] [address] [place] [address] Jun, RUQ abdominal pain R10.11 [place] [address] [address] [place] [id number] [address] [place] [address] Jun, RUQ abdominal pain R10.11 an d Hematuria, unspecified type R31.9 [place] [address] [address] [place] [id number] [place] [address] Jun, Right hip pain M25.551 [place] [address] [address] Jun, Prediabetes R73.03 ; Left fo ot pain M79.672 and Right hip pain M25.551 [facility] [address] [address] Nov, Acute non-recurrent maxillar y sinusitis J01.00 [place] [address] [address] Nov, Hypertension I10 ; Prediabet es R73.09 and Dyslipidemia 272.4 [place] [address] [address] Nov, Hypertension I10 ; Prediabet es R73.03 and Colon cancer screening Z12.11 [place] [address] [address] [place] [id number] [address] [place] [address] Oct, Hypertension I10 [place] [address] [address] Oct, [place] [address] [address] [place] [id number] [address] [place] [address] May, Strain of triceps tendon, ri t, initial encounter S46.811A and Osteoarthritis of right knee, unspecified osteoarthritis type M17.9 [place] [address] [place] [id number] [address] [place] [address] Apr, Elbow pain, right M25.521 an d Acute pain of right knee M25.561 [place] [address] [address] Apr, [facility] [address] [address] Mar, Right elbow pain M25.521 [place] [address] [address] Mar, Hypertension I10 and Prediab etes R73.09 [place] [address] [address] Nov, [place] [address] [address] Oct, Sciatica, right side M54.31 ; Establishing care with new doctor, encounter for Z71.89 ; Tobacco abuse Z72.0 ; Tobacco abuse counseling Z71.6 and Essential hypertension I10 [facility] [address] [address] Oct, Lumbago M54.5 [place] [address] [address] Aug, Prediabetes R73.09 ; Hyperte nsion I10 and Impotence N52.9 [place] [address] [address] 08 May, 2015 Ingrowing nail, right great toe 703.0 [place] [address] [address] 16 Mar, 2015 Dyslipidemia 272.4 [place] [address] [address] 14 Mar, 2015 Prediabetes 790.[address] [address] 24 Feb, 2015 Prediabetes 790.29 and Impot ence of organic origin 607.[address] [address] Feb, [place] [address] [id number] [address] [place] [address] Feb, [facility] [address] [id number] [address] [place] [address] Dec, Hypertension 401.9 ; Impoten ce due to erectile dysfunction 607.84 and Hyperglycemia 790.29 [facility] [address] [id number] [address] [place] [address] Dec, [facility] [address] [id number] [address] [place] [address] Dec, [facility] [address] [id number] [address] [place] [address] Dec, [facility] [address] [id number] [address] [place] [address] Nov, [facility] [address] [id number] [address] [place] [address] Nov, [facility] [address] [id number] [address] [place] [address] Oct, [facility] [address] [id number] [address] [place] [address] Oct, [facility] [address] [id number] [address] [place] [address] Oct, [facility] [address] [id number] [address] [place] [address] Oct, [facility] [address] [id number] [address] [place] [address] Sep, [facility] [address] [id number] [address] [place] [address] Sep, [facility] [address] [id number] [address] [place] [address] Sep, [facility] [address] [id number] [address] [place] [address] Sep, [facility] [address] [id number] [address] [place] [address], [place] [address] Sep, [facility] [address] [id number] [address] [place] [address], [place] [address] Sep, [facility] [address] [id number] [address] [place] [address], [place] [address] Jul, [facility] [address] [id number] [address] [place] [address], [place] [address] Jul, [facility] [address] [id number] [address] [place] [address], [place] [address] Jul, [facility] [address] [id number] [address] [place] [address], [place] [address] Jul, [facility] [address] [id number] [address] [place] [address], [place] [address] Jul, [facility] [address] [id number] [address] [place] [address], [place] [address] Jul, [facility] [address] [id number] [address] [place] [address], [place] [address] Jun, [facility] [address] [id number] [address] [place] [address], [place] [address] Mar, [facility] [address] [id number] [address] [place] [address], [place] [address] Mar, [facility] [address] [id number] [address] [place] [address] Mar, [facility] [address] [id number] [address] [place] [address], [place] [address] Mar, [facility] [address] [id number] [address] [place] [address], [place] [address] Feb, [facility] [address] [id number] [address] [place] [address], [place] [address] Feb, [facility] [address] [id number] [address] [place] [address] Nov, [facility] [address] [id number] [address] [place] [address], [place] [address] Nov, [facility] [address] [id number] [address] [place] [address], [place] [address] May, [facility] [address] [id number] [address] [place] [address], [place] [address] Apr, [facility] [address] [id number] [address] [place] [address], [place] [address] January, [facility] [address] [id number] [address] [place] [address], [place] [address] Oct, [facility] [address] [id number] [address] [place] [address], [place] [address] Sep, [facility] [address] [id number] [address] [place] [address], [place] [address] Sep, [facility] [address] [id number] [address] [place] [address], [place] [address] Sep, [facility] [address] [id number] [address] [place] [address], [place] [address] Jul, [facility] [address] [id number] [address] [place] [address], [place] [address] Jul, [facility] [address] [id number] [address] [place] [address], [place] [address] Mar, [facility] [address] [id number] [address] [place] [address], [place] [address] Sep, [facility] [address] [id number] [address] [place] [address], [place] [address] Sep, [facility] [address] [id number] [address] [place] [address], [place] [address] Sep, [facility] [address] [id number] [address] [place] [address], [place] [address] Sep, [facility] [address] [id number] [address] [place] [address] Aug, [facility] [address] [id number] [address] [place] [address] Aug, [facility] [address] [id number] [address] [place] [address] Aug, [facility] [address] [id number] [address] [place] [address] Aug, [facility] [address] [id number] [address] [place] [address] Aug, [facility] [address] [id number] [address] [place] [address] Aug, [facility] [address] [id number] [address] [place] [address] Sep, [facility] [address] [id number] [address] [place] [address] Aug, [facility] [address] [id number] [address] [place] [address] Jul, [facility] [address] [id number] [address] [place] [address] Jun, [facility] [address] [id number] [address] [place] [address] Jun, [facility] [address] [id number] [address] [place] [address] May, IMMUNIZATIONS No Known Immunizations SOCIAL HISTORY Never Assessed REASON FOR VISIT Medication refill request PLAN OF CARE VITAL SIGNS MEDICATIONS Medication Instructions Dosage Frequency Start Date End Date Duration S tatus Flagyl 500 MG Orally at one time 4 tablets 1 dos e Active RESULTS No Results PROCEDURES No Known procedures INSTRUCTIONS MEDICATIONS ADMINISTERED No Known Medications MEDICAL (GENERAL) HISTORY Type Description Date Medical History hypertension dx: 2008 Medical History hyperlipidemia Medical History prediabetes Surgical History No Surgical history information
--- OUTSIDE RECORDS SUMMARY | 2019-12-28 17:30 | XMS REPORT | Continuity of Care Document ---
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 JOLENE DPM, BERNARD Q Via [facility] SDC GANGLION CYST, PERONEAL TENDONITIS [id number] 11/04/2017 11:00:00 018 11:14:00 DIS Outpatient JOLENE DPM, BERNARD Q Via [facility] PREOP GANGLION CYST, PERONEAL TENDONITIS [id number] 07/28/2017 08:57:00 017 23:59:59 CLS Preadmit PAYAL, PAULINA RAILROAD HAND Via [facility] RAD RUQ ABD PAIN [id number] 07/15/2017 16:55:00 23:59:59 CLS Outpatient PAULINA MOE Via [facility] RAD LEFT FOOT PAIN [id number] 07/14/2017 20:15:00 00:10:00 DIS Emergency DRU PERSON Via [facility] ER ABDOMINAL PAIN,NAUSEA [id number] 06/04/2016 11:49:00 016 23:59:59 CLS Outpatient MARCIE HARDEN RAILROAD HAND Via [facility] RAD STRAIN OF TRICEPS TENDO N RT [id number] 10/24/2015 08:12:00 016 23:59:59 CLS Emergency CARLYLE ZELALEM THIBODEAUX Vi a [facility] ER BACK PAIN [id number] 12/25/2019 16:07:[address] Outpatient PAULINA MOE [facility] RAD ABD PAIN,RUQ [id number] 02/17/2019 09:22:00 Document Registration [id number] 11/11/2015 13:12:00 Document Registration [id number] 03/13/2012 12:07:00 Document Registration [id number] 11/23/2014 16:12:00 11/23/2014 23:59: 59 CLS Outpatient CHAMP SHARMA DO [id number] 07/31/2014 15:54:00 07/31/2014 23:59: 59 CLS Outpatient EBONI DON APRN [id number] 04/02/2014 10:35:00 04/02/2014 23:59: 59 CLS Outpatient CHAMP SHARMA DO [id number] 03/26/2014 09:16:00 03/26/2014 23:59: 59 CLS Outpatient CHAMP SHARMA DO [id number] 05/08/2013 11:41:00 05/08/2013 23:59: 59 CLS Outpatient CHAMP SHAMRA DO [id number] 09/28/2012 09:43:00 09/28/2012 23:59: 59 [place] [id number] 04/06/2012 10:40:00 04/06/2012 23:59:5 9 CLS Outpatient
[2019-12-28] MEDS ORDERED: LIDOCAINE 1% INJ 20 ML 20 ML VIAL INJ ONE (18:00)
[2019-12-28] MEDS ORDERED: TETANUS,DIPTH,PERTUSS P/F (BOOSTRIX) 0.5 ML VIAL IM ONE (18:00)
--- NOTE | 2019-12-28 18:24 | Diagnostic Imaging Report ---
HISTORY: Injury to the left knee with pain and abrasions. TECHNIQUE: Three views of the left knee. COMPARISON: None. FINDINGS: No acute fracture is seen in the left knee. Alignment appears normal. There are mild degenerative changes present. No significant joint effusion is seen. There is a laceration seen at the anterior knee projecting over the distal patellar tendon. IMPRESSION: 1. Mild degenerative changes in the left knee with no acute osseous abnormality seen. 2. Soft tissue laceration, anteriorly, in the region of the distal patellar tendon. No intra-articular air or effusion is seen. Dictated by: Dictated on workstation # [id number]
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
[2019-12-28 18:57] VITALS: BP 134/91
== END 2019-12-28 18:57 | disposition home or self-care (01) ==
LOC: EDUNIT# 17:21 → ER 17:22
DX: S81.012A Laceration without foreign body, left knee, initial encounter (principal); I10 Essential (primary) hypertension; E11.9 Type 2 diabetes mellitus without complications; V29.9XXA Motorcycle rider (driver) (passenger) injured in unspecified traffic accident, initial encounter; Z87.891 Personal history of nicotine dependence; Z79.899 Other long term (current) drug therapy; Z23 Encounter for immunization
CPT/HCPCS: 12002; 73562; 90715

== ENCOUNTER → 2021-09-22 | Outpatient (CLI) | payer OTHER ==
[~2021-09-22] MED LIST changes: +AMLO-251 PO; -AMLO10TA7 PO; +CYCL10TA25 PO; -CYCL10TA9 PO; -HYDR-83 PO; -LISI10TA2 PO; +LISI10TA25 PO; -LISI40TA PO; +LISI40TA9 PO
--- NOTE | 2021-09-22 17:57 | Diagnostic Imaging Report ---
INDICATION: Fall. Right hip pain. COMPARISON: CT abdomen and pelvis dated 12/25/2019 FINDINGS: Two radiographic views of the right hip were obtained. There are postsurgical changes of previous total right hip replacement. Femoral and acetabular components appear well aligned in respect to one another. Femoral component is well-seated. There is fragmented appearance to the lateral margins of the acetabulum. This, however, is shown to be chronic change when compared to previous CT abdomen and pelvis dated 12/25/2019. Otherwise, acetabular component appears well seated as well. No unexpected radiopaque foreign bodies are seen. There is no new periprosthetic fracture. Included portions of the right hemipelvis are unremarkable as well. IMPRESSION: 1. Postsurgical changes of previous right total hip replacement. No new acute abnormality. Dictated by: Dictated on workstation # [id number]
== END ==
LOC: RAD 17:13
PROVIDERS: ATTEND Nurse Practitioner Family
DX: M25.551 Pain in right hip (principal); Z96.641 Presence of right artificial hip joint; W19.XXXA Unspecified fall, initial encounter
CPT/HCPCS: 73502

== ENCOUNTER → 2022-11-02 | Outpatient (CLI) | payer OTHER ==
--- NOTE | 2022-11-02 16:49 | Diagnostic Imaging Report ---
PROCEDURE: MRI right joint lower extremity without contrast. TECHNIQUE: Multiplanar, multisequence non contrast-enhanced MRI of the right lower extremity was accomplished. INDICATION: Right ankle pain COMPARISON: None available. FINDINGS: Tendons: Achilles is intact. The peroneus longus and brevis are intact without tenosynovitis. The posterior tibialis, flexor digitorum longus and flexor hallucis longus are normal. Anterior tibialis, extensor hallucis longus and extensor digitorum longus are normal. Ligaments: The anterior and posterior distal tibiofibular ligaments are intact. The anterior talofibular, calcaneofibular and posterior talofibular ligaments are normal. Bones: No osteochondral lesion talar dome. 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 No stress fracture within the hindfoot or midfoot. Soft tissues: No mass effect on the tarsal tunnel. No ankle joint effusion. The sinus tarsi is normal in appearance. Plantar fascia origin is normal. IMPRESSION: 1. No tendon or ligament injury. 2. No osteochondral lesion in the talar dome. Mild osteoarthritis of the tibiotalar joint could be posttraumatic in nature with patient's prior history of injury over a year ago. Dictated by: Dictated on workstation # [id number]
== END ==
LOC: RAD 14:13
PROVIDERS: ATTEND Registered Nurse Critical Care Medicine
DX: M19.071 Primary osteoarthritis, right ankle and foot (principal); M21.40 Flat foot [pes planus] (acquired), unspecified foot; M72.2 Plantar fascial fibromatosis
CPT/HCPCS: 73721

== ENCOUNTER 2022-12-21 15:50 | Outpatient (RCR) | payer OTHER | END 2022-12-25 | disposition home or self-care (01) | PROVIDERS: ATTEND Family Medicine Sports Medicine | DX: M79.661 Pain in right lower leg (principal) ==

== ENCOUNTER 2023-01-21 15:55 | Outpatient (RCR) | payer OTHER | END 2023-01-24 | disposition home or self-care (01) | PROVIDERS: ATTEND Family Medicine Sports Medicine | DX: M79.661 Pain in right lower leg (principal) ==

== ENCOUNTER → 2023-02-10 | Outpatient (CLI) | payer OTHER ==
--- NOTE | 2023-02-10 17:41 | Diagnostic Imaging Report ---
PROCEDURE: US right lower extremity venous. TECHNIQUE: Multiple real-time grayscale images were obtained over the right lower extremity in various projections. Additional spectral analysis and color Doppler duplex images were also obtained. INDICATION: Right lower extremity pain. FINDINGS: Continuous venous flow is present. No intraluminal filling defect is identified. There is normal compressibility and response to augmentation. No abnormal perivascular fluid collection is identified. IMPRESSION: No ultrasound evidence of right lower extremity deep venous thrombosis. Dictated by: Dictated on workstation # [id number]
--- NOTE | 2023-02-10 18:18 | Diagnostic Imaging Report ---
HISTORY: Pain in the right lower extremity. COMPARISON: None. TECHNIQUE: Ultrasound of the arterial structures in the right lower extremity with grayscale, color Doppler, and spectral Doppler. FINDINGS: The right common femoral artery has a triphasic waveform and measures 65 cm/s. The deep femoral artery has a triphasic waveform and measures 175 cm/s. The proximal superficial femoral artery has a monophasic waveform and measures 27 cm/s. The mid SFA has a monophasic waveform at the collateral, as there appears to be a chronic occlusion. The distal SFA has a monophasic tardus parvus waveform and measures 10 cm/s. The popliteal artery has a monophasic waveform and measures 23 cm/s. The distal posterior tibial artery is monophasic and measures 7 cm/s. The dorsalis pedis is monophasic and measures 28 cm/s. The peroneal artery is monophasic and measures 18 cm/s. The anterior tibial artery is monophasic and measures 27 cm/s. IMPRESSION: 1. 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 There is reconstituted, but diminished, flow in the more distal right lower extremity. Dictated by: Dictated on workstation # [id number]
== END ==
LOC: RAD 14:58
PROVIDERS: ATTEND Registered Nurse Critical Care Medicine
DX: I74.3 Embolism and thrombosis of arteries of the lower extremities (principal); L60.0 Ingrowing nail; M25.571 Pain in right ankle and joints of right foot; M72.2 Plantar fascial fibromatosis; M21.40 Flat foot [pes planus] (acquired), unspecified foot; B35.1 Tinea unguium; R20.2 Paresthesia of skin
CPT/HCPCS: 93926

== ENCOUNTER 2023-07-03 19:58 | Emergency (ER) | payer OTHER ==
[~2023-07-03] VITALS: Ht 177.8 cm; Wt 68.0 kg
--- NOTE | 2023-07-03 20:33 | ED Lower Extremity ---
General Chief Complaint: Lower Extremity Stated Complaint: INJ LEFT FOOT Source: patient Exam Limitations: no limitations History of Present Illness Date Seen by Provider: Jul 03, 2023 Time Seen by Provider: 20:22 Initial Comments 58-year-old male presents to the ER after he was tripped by his dog and fell down approximately 6 steps. He states that he hit the left side of his head, presents with hematoma to the left side of his head denies LOC. He is also com plaining of left foot pain and some pain in his left ankle. He reports some pain in his right wrist as well, but states this is mild, has normal range of motion of the right wrist. Patient does take blood thinners for a blood clot in his left lower extremity artery. Allergies and Home Medications Allergies Coded Allergies: No Known Drug Allergies (Unverified , 03/13/12) Patient Home Medication List Home Medication List Reviewed: Yes Amlodipine Besylate (Amlodipine Besylate) 10 Mg Tablet, 10 MG PO HS, (Reported) Entered as Reported by: REBA GHOTRA on 11/04/17 1110 Hydrocodone/Acetaminophen (Hydrocodone-Acetamin 5-325 mg) 1 Each Tablet, 1 EACH PO Q4H PRN for PAIN-MODERATE (5-7) Prescribed by: LISETH BOWEN on 12/23/19 0038 Lisinopril (Lisinopril) 40 Mg Tablet, 40 MG PO HS, (Reported) Entered as Reported by: REBA GHOTRA on 11/04/17 1110 Metformin HCl (Metformin HCl) 500 Mg Tablet, 500 MG PO HS, (Reported) Entered as Reported by: REBA GHOTRA on 11/04/17 1110 Ondansetron (Ondansetron Odt) 4 Mg Tab.rapdis, 4 MG SL Q4H PRN for NAUSEA/VOMITING Prescribed by: LISETH BOWEN on 12/23/19 0037 Review of Systems Constitutional: see HPI Past Wargolu-Bbvzte-Hwimom Hx Immunizations Up To Date Tetanus Booster (TDap): Unknown PED Vaccines UTD: No Seasonal Allergies Seasonal Allergies: No Past Medical History Surgeries: Yes (ganglion cyst removed) Respiratory: No Cardiac: Yes Hypertension Neurological: No Gastrointestinal: Yes (POSITIVE COLOGUARD SCREENING TEST) Musculoskeletal: No Endocrine: Yes ("PRE-DIABETIC") Diabetes, Non-Insulin dep Cancer: No Psychosocial: No Integumentary: No Blood Disorders: No Family Medical History No Pertinent Family Hx Physical Exam Vital Signs Vital Signs - First Documented 07/03/23 20:05 Temp 38.1 Pulse 87 Resp 16 B/P (MAP) 149/100 (116) Pulse Ox 97 O2 Delivery Room Air Capillary Refill : Height, Weight, BMI Height: 5'9.00" Weight: 160lbs. 0.0oz. 72.669835kj; 21.00 BMI Method:Stated General Appearance: WD/WN, no apparent distress HEENT: PERRL/EOMI, TMs normal Neck: supple, normal inspection Cardiovascular: regular rate, rhythm Respiratory: lungs clear, normal breath sounds, no respiratory distress, no accessory muscle use Ankles: left ankle limited range of motion, left ankle pain Feet: left foot bone tenderness, left foot pain, left foot other (Sensation intact distally, cap refill less than 2 seconds, pulses intact) Neurologic/Psychiatric: head porter II-XII nml as tested, no motor/sensory deficits, alert, normal mood/affect Skin: normal color, warm/dry Progress/Results/Core Measures Results/Orders My Orders Orders - DANA,KINSEY R [employer]IN CLEANER Foot, Left, 3 Views (07/03/23 20:28) Ankle, Left, 3 Views (07/03/23 20:28) Ct Head/Cervical Spine Wo (07/03/23 20:28) Hydrocodone/Apap 5/325 Tablet (Hydrocod (07/03/23 21:30) Vital Signs/I&O 07/03/23 07/03/23 20:05 21:42 Temp 38.1 37.9 Pulse 87 83 Resp 16 16 B/P (MAP) 149/100 (116) 136/94 Pulse Ox 97 98 O2 Delivery Room Air Room Air Progress Progress Note : Progress Note Patient seen and evaluated, resting comfortably in bed, no acute distress. Due to patient being on blood thinners, CT of the head as well as the neck ordered. X-ray of left ankle and left foot ordered. Considered x-ray of right wrist, but patient has full range of motion, and no pain to palpation. [address] head shows no acute intracranial process. No skull fracture. No evidence of acute cervical spine fracture or dislocation. It does show degenerative spurs and mild facet arthropathy in the cervical spine. As well as a small radiodense foreign object on the left side of the neck at the level of the thyroid cartilage. Foot and ankle x-ray shows no acute fracture. It does show some degenerative spurs. Results discussed with patient. Patient reports that he has crutches at home that he can use. Patient stable for discharge. Discharge instructions and return precautions provided. Diagnostic Imaging Diagonstic Imaging: CT Plain Films/CT/US/NM/MRI: c-spine, head Comments [facility] [place], [place] NAME: ANDREY JUAREZ [facility] REC#: [id number] PT STATUS: REG ER : 1965 PHYSICIAN: KINSEY CORTEZ APRN ADMIT DATE: 07/03/23/ER Signed Date of Exam:07/03/23 CT HEAD/CERVICAL SPINE WO CLINICAL INDICATION: Patient's dog pulled him downstairs and hit his head and rolled his left ankle. Patient bumped left upper side of head and unable to bear weight on left foot. EXAM: Head CT without IV contrast with sagittal and coronal reformations. Axial CT scan of the cervical spine with sagittal and coronal reformations. Auto Exposure Controls were utilized during the CT exam to meet ALARA standards for radiation dose reduction. COMPARISON: None. FINDINGS: HEAD CT: There is no evidence of acute cerebral infarct, intracranial hemorrhage, or gross mass effect. The brain parenchymal volume appears appropriate for patient's age. There is normal arguelles-white matter distinction. There is no significant midline shift or herniation. There is no evidence of hydrocephalus. The basal cisterns are unremarkable. There is a subtle area of soft tissue swelling involving the left upper posterior aspect of the head. There is no skull fracture. Otherwise, the skull, extracranial soft tissue, and orbits are unremarkable. The paranasal sinuses are unremarkable. Temporal bones show no significant abnormality. CERVICAL SPINE: There is no acute cervical spine fracture or dislocation. There are degenerative spurs and mild facet arthropathy. There is a small radiodense BB/foreign object along the left side of the neck at the level of the thyroid cartilage. A small bleb is seen involving the left lung apex. IMPRESSION: 1: There is no evidence of an acute intracranial process. There is no skull fracture. 2: There is no CT evidence of an acute cervical spine fracture or dislocation. Dictated by: Dictated on workstation # [id number] Dict: 07/03/232047 Trans: 07/03/232241 [id number] Interpreted by: PARVIN HORTA MD Diagonstic Imaging: Xray Plain Films/CT/US/NM/MRI: other (foot) Comments [facility] [place] [place] NAME: ANDRYE JUAREZ [facility] REC#: [id number] PT STATUS: REG ER : 1965 PHYSICIAN: KINSEY CORTEZ APRN ADMIT DATE: 07/03/23/ER Signed Date of Exam:07/03/23 FOOT, LEFT, 3 VIEWS CLINICAL INDICATION: Patient states dog pulled him downstairs and he hit his head and rolled his left ankle. Patient is unable to bear weight on left foot/left ankle. EXAMS: 1: X-ray of the left ankle, 3 views. 2: X-ray of the left foot, 3 views. COMPARISON: None. FINDINGS: X-rays of the left foot and left ankle show no acute fracture or dislocation. The ankle mortise and syndesmotic joints are unremarkable. There are degenerative spurs involving the tibiotalar joint. There is a mildly hypertrophic calcaneal spur at the plantar attachment. There is spurring of the dorsal midfoot. The phalanges and forefoot regions show no significant abnormality. IMPRESSION: X-rays of the left foot and left ankle show no acute fracture or dislocation. Dictated by: Dictated on workstation # [id number] Dict: 07/03/232114 Trans: 07/03/232138 [id number] Interpreted by: PARVIN HORTA MD Electronically signed by: PARVIN HORTA MD 07/03/232138 Diagonstic Imaging: Xray Plain Films/CT/US/NM/MRI: ankle Comments [facility] [place], [place] NAME: ANNANDREY Garland [facility] REC#: [id number] PT STATUS: REG ER : 1965 PHYSICIAN: KINSEY CORTEZ APRN ADMIT DATE: 07/03/23/ER Signed Date of Exam:07/03/23 ANKLE, LEFT, 3 VIEWS CLINICAL INDICATION: Patient states dog pulled him downstairs and he hit his head and rolled his left ankle. Patient is unable to bear weight on left foot/left ankle. EXAMS: 1: X-ray of the left ankle, 3 views. 2: X-ray of the left foot, 3 views. COMPARISON: None. FINDINGS: X-rays of the left foot and left ankle show no acute fracture or dislocation. The ankle mortise and syndesmotic joints are unremarkable. There are degenerative spurs involving the tibiotalar joint. There is a mildly hypertrophic calcaneal spur at the plantar attachment. There is spurring of the dorsal midfoot. The phalanges and forefoot regions show no significant abnormality. IMPRESSION: X-rays of the left foot and left ankle show no acute fracture or dislocation. Dictated by: Dictated on workstation # [id number] Dict: 07/03/232113 Trans: 07/03/232243 [id number] Interpreted by: PARVIN HORTA MD Electronically signed by: PARVIN HORTA MD 07/03/232243 Departure Impression Primary Impression: Contusion of foot Additional Impression: Head injury Disposition: 01 HOME, SELF-CARE Condition: Stable Departure-Patient Inst. Decision time for Depature: 21:30 Referrals: CHACE MENDOZA MD (PCP) Primary Care Physician Patient Instructions: Contusion (DC) Add. Discharge Instructions: Use your crutches as needed to keep weight off of your foot. You may take Tylenol as needed for pain. You may ice your foot for 20 minutes at a time several times a day to help with pain. Return for abnormal behavior, difficulty doing normal activities, weakness on 1 side your body, or any other new, concerning, or worsening symptoms. All discharge instructions reviewed with patient and/or family. Voiced un derstanding. KINSEY CORTEZ APRN Jul 03, 2023 20:33
--- NOTE | 2023-07-03 21:04 | Diagnostic Imaging Report ---
CLINICAL INDICATION: Patient's dog pulled him downstairs and hit his head and rolled his left ankle. Patient bumped left upper side of head and unable to bear weight on left foot. EXAM: Head CT without IV contrast with sagittal and coronal reformations. Axial CT scan of the cervical spine with sagittal and coronal reformations. Auto Exposure Controls were utilized during the CT exam to meet ALARA standards for radiation dose reduction. COMPARISON: None. FINDINGS: HEAD CT: There is no evidence of acute cerebral infarct, intracranial hemorrhage, or gross mass effect. The brain parenchymal volume appears appropriate for patient's age. There is normal arguelles-white matter distinction. There is no significant midline shift or herniation. There is no evidence of hydrocephalus. The basal cisterns are unremarkable. There is a subtle area of soft tissue swelling involving the left upper posterior aspect of the head. There is no skull fracture. Otherwise, the skull, extracranial soft tissue, and orbits are unremarkable. The paranasal sinuses are unremarkable. Temporal bones show no significant abnormality. CERVICAL SPINE: There is no acute cervical spine fracture or dislocation. There are degenerative spurs and mild facet arthropathy. There is a small radiodense BB/foreign object along the left side of the neck at the level of the thyroid cartilage. A small bleb is seen involving the left lung apex. IMPRESSION: 1: There is no evidence of an acute intracranial process. There is no skull fracture. 2: There is no CT evidence of an acute cervical spine fracture or dislocation. Dictated by: Dictated on workstation # [id number]
--- NOTE | 2023-07-03 21:26 | Diagnostic Imaging Report ---
CLINICAL INDICATION: Patient states dog pulled him downstairs and he hit his head and rolled his left ankle. Patient is unable to bear weight on left foot/left ankle. EXAMS: 1: X-ray of the left ankle, 3 views. 2: X-ray of the left foot, 3 views. COMPARISON: None. FINDINGS: X-rays of the left foot and left ankle show no acute fracture or dislocation. The ankle mortise and syndesmotic joints are unremarkable. There are degenerative spurs involving the tibiotalar joint. There is a mildly hypertrophic calcaneal spur at the plantar attachment. There is spurring of the dorsal midfoot. The phalanges and forefoot regions show no significant abnormality. IMPRESSION: X-rays of the left foot and left ankle show no acute fracture or dislocation. Dictated by: Dictated on workstation # [id number]
[2023-07-03] MEDS ORDERED: HYDROcodone/ACETAMINOPHEN 5 MG/325 MG TABLET PO ONE (21:30)
[2023-07-03 21:42] VITALS: BP 136/94
== END 2023-07-03 21:42 | disposition home or self-care (01) ==
LOC: EDUNIT# 19:58 → ER 20:01
DX: S09.90XA Unspecified injury of head, initial encounter (principal); S90.32XA Contusion of left foot, initial encounter; W01.198A Fall on same level from slipping, tripping and stumbling with subsequent striking against other object, initial encounter
CPT/HCPCS: 70450; 72125; 73610; 73630